=== PATIENT | female | born 1990 | race Caucasian/White ===

== ENCOUNTER 2016-12-10 18:07 | Inpatient (IN) | payer BC ==
[2016-12-10] MEDS ORDERED: ONDANSETRON HCL INJ/PF 4 MG/2 ML SDV IV ONE (18:55)
--- NOTE | 2016-12-10 19:00 | ER Document Report ---
ED Medical Screen (RME) - General Chief Complaint: Abdominal Pain Stated Complaint: VOMITING,BACK PAIN,ABDOMINAL PAIN Time Seen by Provider: 12/10/16 18:54 Mode of Arrival: Ambulatory Information source: Patient TRAVEL OUTSIDE OF THE [place] IN LAST 30 DAYS: No - HPI Patient complains to provider of: Abdominal pain with vomiting Notes: 12/10/16 18:58 Patient is a 36-year-old female who presents to the emergency room complaining of 2 day history of upper abdominal pain with nausea and vomiting which is consistent with pancreatitis that patient has had in the past, which is related to alcohol abuse - Related Data Allergies/Adverse Reactions: No Known Allergies Allergy (Verified 12/10/16 18:13) Past Medical History Renal/ Medical History: Denies: Hx Peritoneal Dialysis Physical Exam - Vital signs Vitals: Temp Pulse Resp BP Pulse Ox 98.3 F 86 18 156/102 H 98 12/10/16 18:11 12/10/16 18:11 12/10/16 18:11 12/10/16 18:11 12/10/16 18:11 Course - Vital Signs Vital signs: Temp Pulse Resp BP Pulse Ox 98.3 F 86 18 156/102 H 98 12/10/16 18:11 12/10/16 18:11 12/10/16 18:11 12/10/16 18:11 12/10/16 18:11
[2016-12-10 19:26] LABS: APPEARANCE,URINE CLOUDY; BILIRUBIN,URINE MODERATE (NEGATIVE); GLUCOSE, URINE 50 mg/dL (NEGATIVE); KETONES,URINE 80 mg/dL (NEGATIVE); LEUKOCYTE ESTERASE,URINE NEGATIVE (NEGATIVE); NITRITE,URINE NEGATIVE (NEGATIVE); PROTEIN,URINE >=500 mg/dL (NEGATIVE); URINE SPECIFIC GRAVITY 1.037; UROBILINOGEN,URINE NEGATIVE mg/dL (<2.0)
[2016-12-10] MEDS: NORMAL SALINE 1000 ML 1,000 ML IV PRN ×2 (20:05→22:12)
[2016-12-10 20:44] LABS: HEMATOCRIT 52.5 % (36.0-47.0); HEMOGLOBIN 17.4 g/dL (12.0-15.5); HGB HCT DIFFERENCE -0.3; MEAN CORPUSCULAR HEMOGLOBIN 32.1 pg (27.0-33.4); MEAN CORPUSCULAR HGB CONC 33.1 g/dL (32.0-36.0); MEAN CORPUSCULAR VOLUME 97 fl (80-97); RED BLOOD COUNT 5.41 10^6/uL (3.72-5.28); RED CELL DISTRIBUTION WIDTH 14.6 % (11.5-14.0); WHITE BLOOD COUNT 14.9 10^3/uL (4.0-10.5)
[2016-12-10 21:02] LABS: ALANINE AMINOTRANSFERASE 55 U/L (9-52); ALBUMIN 5.2 g/dL (3.5-5.0); ALKALINE PHOSPHATASE 202 U/L (38-126); ASPARTATE AMINO TRANSFERASE 86 U/L (14-36); BILIRUBIN,DIRECT 0.8 mg/dL (0.0-0.4); BILIRUBIN,TOTAL 2.4 mg/dL (0.2-1.3); BLOOD UREA NITROGEN 4 mg/dL (7-20); CALCIUM 11.1 mg/dL (8.4-10.2); CREATININE RESULT 0.67 mg/dL (0.52-1.25); GLUCOSE 105 mg/dL (75-110); TOTAL PROTEIN 8.5 g/dL (6.3-8.2)
[2016-12-10 21:10] LABS: CARBON DIOXIDE 27 mmol/L (22-30); CHLORIDE 91 mmol/L (98-107); POTASSIUM 4.3 mmol/L (3.6-5.0); SODIUM 143.4 mmol/L (137-145)
[2016-12-10 21:16] LABS: BAND NEUTROPHILS % (MANUAL) 4 % (3-5); BASOPHILS % (MANUAL) 0 % (0-2); EOSINOPHILS % (MANUAL) 0 % (0-6); LYMPHOCYTES % (MANUAL) 0 % (13-45); TOTAL CELLS COUNTED 100
[2016-12-10 21:18] LABS: ANION GAP 25 (5-19); ANISOCYTOSIS SLIGHT; PLATELET CLUMPS PRESENT; TOXIC GRANULATION 1+
[2016-12-10 21:19] LABS: LIPASE 4617.8 U/L (23-300)
--- NOTE | 2016-12-10 22:13 | ER Document Report ---
ED GI/ - General Mode of Arrival: Ambulatory Information source: Patient, Parent TRAVEL OUTSIDE OF THE [place] IN LAST 30 DAYS: No - HPI Patient complains to provider of: Abdominal pain, Vomiting Onset: Other - refer to HPI notes Context: Other - EtOH abuse Associated symptoms: Nausea, Vomiting, Other - shaking Similar symptoms previously: Yes Recently seen / treated by doctor: No <DAYANA CLARK - Last Filed: 12/11/16 01:51> <JOSEP SALCEDO - Last Filed: 12/11/16 06:10> - General Chief Complaint: Abdominal Pain Stated Complaint: VOMITING,BACK PAIN,ABDOMINAL PAIN Time Seen by Provider: 12/10/16 22:15 Notes: Patient is a 25 year old female presenting to the emergency department for upper abdominal pain, nausea, and vomiting x2 days. Patient's symptoms are consistent with pancreatitis which the patient has had in the past. Patient has a history of EtOH abuse. Patient is shaky and cannot keep any fluids down. Patient's father states the patient is vomiting every 10-15 minutes. Patient has a history of EtOH withdrawal without seizures; patient states she just gets shaky and has abdominal and back pain. Patient has quit drinking alcohol in the past for about 1-2 months but started up again when she was hanging out with a friend recently. Patient has been hospitalized x3 in the past for EtOH related pancreatitis. (DAYANA CLARK) - Related Data Allergies/Adverse Reactions: No Known Allergies Allergy (Verified 12/10/16 18:13) Past Medical History - General Information source: Patient - Social History Smoking Status: Former Smoker Chew tobacco use (# tins/day): No Frequency of alcohol use: Heavy Family History: None Patient has suicidal ideation: No Patient has homicidal ideation: No - Medical History Medical History: Other - EtOH related pancreatitis Past Surgical History: Reports: Hx Tonsillectomy <DAYANA CLARK - Last Filed: 12/11/16 01:51> Review of Systems - Review of Systems Constitutional: No symptoms reported EENT: No symptoms reported Cardiovascular: No symptoms reported Respiratory: No symptoms reported Gastrointestinal: See HPI, Abdominal pain, Nausea, Vomiting Genitourinary: No symptoms reported Female Genitourinary: No symptoms reported Musculoskeletal: See HPI, Back pain Skin: No symptoms reported Hematologic/Lymphatic: No symptoms reported Neurological/Psychological: No symptoms reported -: Yes All other systems reviewed and negative <CASEYDAYANA BRYANT - Last Filed: 12/11/16 01:51> Physical Exam - Vital signs Interpretation: Hypertensive <AMBERKASEYDAYANA - Last Filed: 12/11/16 01:51> <JOSEP SALCEDO - Last Filed: 12/11/16 06:10> - Vital signs Vitals: Temp Pulse Resp BP Pulse Ox 98.3 F 86 18 156/102 H 98 12/10/16 18:11 12/10/16 18:11 12/10/16 18:11 12/10/16 18:11 12/10/16 18:11 - Notes Notes: GENERAL: Alert, interacts well, patient is tremulous and appears uncomfortable. Mild distress. HEAD: Normocephalic, atraumatic. EYES: Appear normal. Pupils equal, round, and reactive to light. ENT: Dry mucus membranes, tongue midline. NECK: Full range of motion. Supple. Trachea midline. LUNGS: Clear to auscultation bilaterally, no wheezes, rales, or rhonchi. No respiratory distress. HEART: Tachycardia. Regular rhythm. No murmurs, gallops, or rubs. ABDOMEN: Soft, tenderness to palpation over the maria-umbilical region. Non- distended. Normal bowel sounds. EXTREMITIES: Moves all 4 extremities spontaneously. Normal strength. No edema. NEUROLOGICAL: Alert and oriented x3. Normal speech. No focal neurological deficits. GSC 15. PSYCH: Normal affect, normal mood. SKIN: Warm, dry, normal turgor. No rashes or lesions noted. (DAYANA CLARK) Course - Laboratory Result Diagrams: 12/10/16 20:11 12/10/16 20:11 <AMBERDAYANA - Last Filed: 12/11/16 01:51> - Laboratory Result Diagrams: 12/10/16 20:11 12/10/16 20:11 <JOSEP SALCEDO - Last Filed: 12/11/16 06:10> - Re-evaluation Re-evalutation: 12/10 Patient is a 25-year-old female who presents with abdominal pain and vomiting. Patient has a history of alcohol abuse. Patient is also tachycardic, hypertensive, tremulous. Patient has been given fluids, nausea, pain medication , and Valium for alcohol withdrawal. Patient is feeling better but when she tries to take p.o. so becomes nauseated. Patient denies any seizure history from alcohol withdrawal. However, due to her continued nausea, diagnosis of pancreatitis and history of alcohol abuse with current withdrawal symptoms, it is probably best that she be admitted to the hospital to control her symptoms of pancreatitis and withdrawal. Patient agrees with this plan. Stable at time of admission to the hospitalist service. (JOSEP SALCEDO) - Vital Signs Vital signs: Temp Pulse Resp BP Pulse Ox 98.6 F 75 18 152/110 H 97 12/11/16 02:34 12/11/16 02:34 12/11/16 02:34 12/11/16 02:34 12/11/16 02:34 - Laboratory Laboratory results interpreted by me: 12/10/16 12/10/16 12/10/16 18:57 20:11 20:11 WBC 14.9 H RBC 5.41 H Hgb 17.4 H Hct 52.5 H RDW 14.6 H Seg Neuts % (Manual) 94 H Lymphocytes % (Manual) 0 L Monocytes % (Manual) 2 L Abs Neuts (Manual) 14.6 H Abs Lymphs (Manual) 0.0 L Chloride 91 L Anion Gap 25 H BUN 4 L Calcium 11.1 H Magnesium Total Bilirubin 2.4 H Direct Bilirubin 0.8 H AST 86 H ALT 55 H Alkaline Phosphatase 202 H Total Protein 8.5 H Albumin 5.2 H Lipase 4617.8 H Urine Protein >=500 H Urine Glucose (UA) 50 H Urine Ketones 80 H Urine Bilirubin MODERATE H Urine Ascorbic Acid 40 H Salicylates Acetaminophen 12/10/16 20:11 WBC RBC Hgb Hct RDW Seg Neuts % (Manual) Lymphocytes % (Manual) Monocytes % (Manual) Abs Neuts (Manual) Abs Lymphs (Manual) Chloride Anion Gap BUN Calcium Magnesium 1.4 L Total Bilirubin Direct Bilirubin AST ALT Alkaline Phosphatase Total Protein Albumin Lipase Urine Protein Urine Glucose (UA) Urine Ketones Urine Bilirubin Urine Ascorbic Acid Salicylates < 1.0 L Acetaminophen < 10 L - Consults Dr. Wood Reason for consultation: 12/11/16 00:[address] Wood in the ED, he will admit the patient. (DAYANA CLARK) Discharge <DAYANA CLARK - Last Filed: 12/11/16 01:51> - Discharge Admitting Provider: [facility] Admitted: Telemetry <JOSEP SALCEDO - Last Filed: 12/11/16 06:10> - Discharge Clinical Impression: Pancreatitis Qualifiers: Chronicity: acute Pancreatitis type: alcohol induced Acute pancreatitis complication: unspecified Qualified Code(s): K85.20 - Alcohol induced acute pancreatitis without necrosis or infection Alcohol withdrawal Qualifiers: Complication of substance-induced condition: uncomplicated Qualified Code(s): F10.230 - Alcohol dependence with withdrawal, uncomplicated Condition: Stable Disposition: ADMITTED OBSERVATION Scribe Attestation: 12/11/16 06:10 I personally performed the services described in the documentation, reviewed and edited the documentation which was dictated to the scribe in my presence, and it accurately records my words and actions. (JOSEP SALCEDO) Scribe Documentation - Scribe Written by Scribe:: Kaylee Barone 12/10/16 23:33 acting as scribe for :: Karan <DAYANA CLARK - Last Filed: 12/11/16 01:51>
[2016-12-10] MEDS ORDERED: MORPHINE SULFATE 10 MG/ML INJ IV ONE (22:24)
[2016-12-10] MEDS ORDERED: METOCLOPRAMIDE HCL INJ/PF 10 MG/2 ML SDV IV ONE (22:24)
[2016-12-10] MEDS ORDERED: DIAZEPAM INJ 10 MG/2 ML DISP.SYRIN IV ONE (22:27)
[2016-12-10] MEDS ORDERED: RINGERS SOLUTION,LACTATED 1,000 ML IV ONE (23:07)
[2016-12-11] MEDS ORDERED: MORPHINE SULFATE 10 MG/ML INJ IV ONE (00:10)
[2016-12-11] MEDS ORDERED: DEXTROSE 40% GEL 15 GM TUBE PO PRN ×2 (00:35)
[2016-12-11] MEDS ORDERED: DEXTROSE 50%-WATER 25 GM/50 ML DISP.SYRIN IV PRN ×2 (00:35)
[2016-12-11] MEDS ORDERED: GLUCAGON,HUMAN RECOMB 1 MG INJ SUBCUT PRN (00:35)
[2016-12-11] MEDS ORDERED: ONDANSETRON HCL INJ/PF 4 MG/2 ML SDV IV PRN ×3 (00:35→11:32)
[2016-12-11] MEDS ORDERED: MAGNESIUM HYDROXIDE SUSP 30 ML UDCUP PO PRN ×2 (00:35→08:00)
[2016-12-11] MEDS ORDERED: ACETAMINOPHEN 325 MG TABLET PO PRN ×2 (00:35→08:00)
[2016-12-11] MEDS ORDERED: IPRATROPIUM/ALBUTEROL 0.5-2.5 MG/3 ML AMPUL NEB PRN (00:35)
[2016-12-11] MEDS ORDERED: ASCORBIC ACID 500 MG TABLET PO SCH (00:45)
[2016-12-11 02:28] LABS: MAGNESIUM 1.4 mg/dL (1.6-2.3); PHOSPHORUS 3.9 mg/dL (2.5-4.5)
[2016-12-11] MEDS: KETOROLAC TROMETHAMINE INJ/PF 30 MG/1 ML SDV IV PRN ×2 (03:02→08:24)
[2016-12-11] MEDS: NORMAL SALINE 1000 ML 1,000 ML IV SCH ×2 (03:14→08:30)
[2016-12-11 04:48] LABS: APPEARANCE,URINE SLIGHTLY-CLOUDY; BILIRUBIN,URINE NEGATIVE (NEGATIVE); GLUCOSE, URINE NEGATIVE (NEGATIVE); KETONES,URINE 80 mg/dL (NEGATIVE); LEUKOCYTE ESTERASE,URINE TRACE (NEGATIVE); NITRITE,URINE NEGATIVE (NEGATIVE); PROTEIN,URINE 100 mg/dL (NEGATIVE); URINE SPECIFIC GRAVITY 1.026; UROBILINOGEN,URINE NEGATIVE mg/dL (<2.0)
--- NOTE | 2016-12-11 04:49 | PDOC H&P ---
History of Present Illness Admission Date/PCP: 12/11/16 00:35 Patient complains of: Abdominal pain and nausea History of Present Illness: DAVONTE ANTONY is a 25 year old female with a past medical history of obesity , depression, self injury with cutting, alcohol dependence, alcoholic pancreatitis and tobacco dependence. Patient been her usual state of health until binging on vodka approximately 72 hours ago resulting in intolerance of p.o. and recurrent vomiting on attempts with epigastric mid abdominal pain radiating to the back. She recognizes the symptoms from several previous episodes. In the emergency room she is found to have markedly abnormal chemical derangement with metabolic acidosis, abnormal LFTs and acute pancreatitis. She is tremulous and tachycardic referred to the hospitalist for admission, for the above. Patient is noted to have several dozen recent appearing lacerations to the left wrist, patient denies these are recent. Past Medical History Cardiac Medical History: Reports: None Pulmonary Medical History: Reports: None EENT Medical History: Reports: None Neurological Medical History: Reports: Migraine Endocrine Medical History: Reports: Obesity Renal/ Medical History: Reports: None Malignancy Medical History: Reports: None GI Medical History: Reports: Hepatitis - Alcoholic pancreatitis, Other Psychiatric Medical History: Reports: Alcohol Dependency, Attention Deficit Hyperactivity Disorder, Depression, General Anxiety Disorder, Tobacco Dependency Hematology: Reports: None Infectious Medical History: Reports: None Past Surgical History Past Surgical History: Reports: Tonsillectomy Social History Information Source: Patient Lives with: Family Smoking Status: Current Some Day Smoker Frequency of Alcohol Use: Heavy - 750 mL vodka every 48 hours Hx Recreational Drug Use: No Hx Prescription Drug Abuse: No - Advance Directive Resuscitation Status: Full Code Family History Family History: Hypertension, Other - Alcohol dependence, depression Parental Family History Reviewed: Yes Children Family History Reviewed: Yes Sibling(s) Family History Reviewed.: Yes Medication/Allergy Allergies/Adverse Reactions: No Known Allergies Allergy (Verified 12/10/16 18:13) Review of Systems Constitutional: PRESENT: anorexia, fatigue, weakness, weight gain Eyes: ABSENT: visual disturbances Ears: ABSENT: hearing changes Cardiovascular: ABSENT: chest pain, dyspnea on exertion, edema, orthropnea, palpitations Respiratory: ABSENT: cough, hemoptysis Gastrointestinal: PRESENT: abdominal pain, bloating, nausea, vomiting, other Genitourinary: ABSENT: dysuria, hematuria Musculoskeletal: PRESENT: back pain. ABSENT: joint swelling Integumentary: PRESENT: rash - Facial rash, wounds - Left wrist lacerations Neurological: ABSENT: abnormal gait, abnormal speech, confusion, dizziness, focal weakness, syncope Psychiatric: PRESENT: anxiety, depression, suicidal ideation Endocrine: ABSENT: cold intolerance, heat intolerance, polydipsia, polyuria Hematologic/Lymphatic: ABSENT: easy bleeding, easy bruising Physical Exam Vital Signs: Temp Pulse Resp BP Pulse Ox 98.6 F 75 18 152/110 H 97 12/11/16 02:34 12/11/16 02:34 12/11/16 02:34 12/11/16 02:34 12/11/16 02:34 Intake & Output 12/09/16 12/10/16 12/11/16 11:59 11:59 11:59 Weight 74.4 kg General appearance: PRESENT: cooperative, disheveled, obese, well-developed. ABSENT: well-nourished Head exam: PRESENT: atraumatic, normocephalic Eye exam: PRESENT: conjunctiva pink, EOMI, PERRLA. ABSENT: scleral icterus Ear exam: PRESENT: normal external ear exam Mouth exam: PRESENT: moist, tongue midline Neck exam: ABSENT: carotid bruit, JVD, lymphadenopathy, thyromegaly Respiratory exam: PRESENT: clear to auscultation vane. ABSENT: rales, rhonchi, wheezes Cardiovascular exam: PRESENT: RRR. ABSENT: diastolic murmur, rubs, systolic murmur Pulses: PRESENT: normal dorsalis pedis pul Vascular exam: PRESENT: normal capillary refill GI/Abdominal exam: PRESENT: distended, hyperactive bowel sounds, soft, tenderness - Epigastric tenderness. ABSENT: firm, guarding, hernia Rectal exam: PRESENT: deferred Extremities exam: PRESENT: full ROM. ABSENT: calf tenderness, clubbing, pedal edema Neurological exam: PRESENT: alert, awake, oriented to person, oriented to place , oriented to time, oriented to situation, CN II-XII grossly intact. ABSENT: motor sensory deficit Psychiatric exam: PRESENT: anxious, depressed, flat affect, suicidal ideation Skin exam: PRESENT: erythema, intact, rash, other - Left wrist several dozen recent lacerations without exudate or extensive erythema Facial, scalp, neck and shoulder erythemic scaling rash. Assessment & Plan - Diagnosis (1) Suicide ideation Is this a current diagnosis for this admission?: Yes Plan: One-to-one sitter, as needed Ativan, mental health consultation. (2) Pancreatitis Qualifiers: Chronicity: acute Is this a current diagnosis for this admission?: Yes Plan: Acute on chronic pancreatitis secondary to alcohol, will obtain CT imaging given markedly abnormal LFTs and unclear history. Initiated IV fluid challenge , thiamine and folate, symptomatic management and bowel rest. (3) Alcohol withdrawal Is this a current diagnosis for this admission?: Yes Plan: Thiamine folate initiated, scheduled and as needed benzodiazepine, mental health consult (4) Abdominal pain Is this a current diagnosis for this admission?: Yes Plan: Nonnarcotic symptomatic management. (5) Dermatitis Is this a current diagnosis for this admission?: Yes Plan: Diffuse scaling rash concerning for thiamine deficiency versus seborrheic dermatitis. Thiamine initiated, topical ketoconazole trial. - Time Time Spent: 50 to 70 Minutes - Inpatient Certification Medical Necessity: Need Close Monitoring Due to Risk of Patient Decompensation
[2016-12-11 05:17] LABS: URINE BARBITURATES SCREEN NEGATIVE; URINE METHADONE SCREEN NEGATIVE; URINE PHENCYCLIDINE SCREEN NEGATIVE
[2016-12-11] MEDS: HEPARIN SOD (PORCINE) 5,000 UNIT/ML 1 ML SYRINGE SUBCUT SCH ×3 (05:18→22:41)
[2016-12-11 05:53] LABS: URINE OPIATES LOW UNCONFIRMED POSITIVE
[2016-12-11] MEDS ORDERED: DIAZEPAM 5 MG TABLET PO SCH (06:00)
[2016-12-11 06:19] LABS: ABSOLUTE LYMPHOCYTES (AUTO) 0.6 10^3/uL (0.5-4.7); ABSOLUTE NEUT (AUTO) 7.7 10^3/uL (1.7-8.2); BASOPHILS % (AUTO) 0.3 % (0-2); EOSINOPHILS % (AUTO) 0.1 % (0-6); HEMATOCRIT 40.3 % (36.0-47.0); HGB HCT DIFFERENCE 0.2; LYMPHOCYTES % (AUTO) 6.1 % (13-45); MEAN CORPUSCULAR HEMOGLOBIN 32.5 pg (27.0-33.4); MEAN CORPUSCULAR HGB CONC 33.4 g/dL (32.0-36.0); MEAN CORPUSCULAR VOLUME 97 fl (80-97); MONOCYTES % (AUTO) 10.4 % (3-13); RED BLOOD COUNT 4.15 10^6/uL (3.72-5.28); RED CELL DISTRIBUTION WIDTH 14.6 % (11.5-14.0); SEGMENTED NEUTROPHILS % (AUTO) 83.1 % (42-78); WHITE BLOOD COUNT 9.3 10^3/uL (4.0-10.5)
[2016-12-11 06:29] LABS: HEMOGLOBIN 13.5 g/dL (12.0-15.5)
[2016-12-11 06:40] LABS: ALANINE AMINOTRANSFERASE 39 U/L (9-52); ALBUMIN 3.6 g/dL (3.5-5.0); ALKALINE PHOSPHATASE 120 U/L (38-126); ANION GAP 16 (5-19); ASPARTATE AMINO TRANSFERASE 52 U/L (14-36); BILIRUBIN,DIRECT 0.6 mg/dL (0.0-0.4); BILIRUBIN,TOTAL 1.5 mg/dL (0.2-1.3); BLOOD UREA NITROGEN 5 mg/dL (7-20); CALCIUM 8.8 mg/dL (8.4-10.2); CARBON DIOXIDE 26 mmol/L (22-30); CHLORIDE 99 mmol/L (98-107); CREATININE RESULT 0.53 mg/dL (0.52-1.25); GLUCOSE 97 mg/dL (75-110); POTASSIUM 3.8 mmol/L (3.6-5.0); SODIUM 140.6 mmol/L (137-145); TOTAL PROTEIN 6.1 g/dL (6.3-8.2)
[2016-12-11] MEDS ORDERED: DOCUSATE SODIUM 100 MG CAPSULE PO SCH (10:00)
[2016-12-11] MEDS ORDERED: KETOCONAZOLE 2% SHAMPOO 120 ML BOTTLE TP SCH (10:00)
[2016-12-11] MEDS ORDERED: DOCUSATE SODIUM 100 MG/10 ML UDC PO SCH (10:00)
[2016-12-11] MEDS: THIAMINE HCL 100 MG, FOLIC ACID 1 MG in NORMAL SALINE 50 ML IV SCH (12:14)
[2016-12-11] MEDS: MORPHINE SULFATE 10 MG/ML INJ IV PRN ×3 (12:24→20:39)
[2016-12-11] MEDS: DIAZEPAM 5 MG TABLET PO SCH ×3 (12:25→23:22)
[2016-12-11] MEDS: MAGNESIUM SULFATE/D5W 1 GM/100 ML RTUPB IV SCH ×2 (13:21→14:32)
--- NOTE | 2016-12-11 15:50 | PDOC PROGRESS REPORT ---
Subjective Progress Note for:: 12/11/16 Subjective:: Patient reports ongoing abdominal pain Reports she drinks about 1/2 of 1/5 of vodka when she does drink States she has backslid and started cutting again. Denies SI and HI Reports having been on Adderall in the past Physical Exam Vital Signs: Temp Pulse Resp BP Pulse Ox 98.5 F 58 L 18 154/94 H 98 12/11/16 12:14 12/11/16 12:14 12/11/16 12:14 12/11/16 12:14 12/11/16 12:14 Intake & Output 12/10/16 12/11/16 12/12/16 06:59 06:59 06:59 Intake Total 1000 Balance 1000 Weight 74.4 kg Exam: General: Awake alert and oriented x3, no acute respiratory distress HEENT: AT/NC, PERRL, EOMI, oropharynx is moist, pink, no scleral icterus, no conjunctival injection Neck: No JVD, trachea midline Chest: Clear to auscultation bilaterally, no wheezes rhonchi or rales CV: Regular rate and rhythm, normal S1 and S2, no murmur, rub, or gallop Abdomen: Soft, tender to palpation rigo, nondistended, hypoactive bowel sounds; no rebound, rigidity, or guarding Extremities: No cyanosis, clubbing or edema Neuro: Cranial nerves II through XII are grossly intact without focal deficits; awake alert and oriented x3 Psych: Normal mood and affect Results Laboratory Results: 12/11/16 05:56 12/11/16 05:56 12/11/16 12/11/16 12/11/16 03:50 05:56 05:56 WBC 9.3 RBC 4.15 Hgb 13.5 D Hct 40.3 MCV 97 MCH 32.5 MCHC 33.4 RDW 14.6 H Plt Count 176 Seg Neutrophils % 83.1 H Lymphocytes % 6.1 L Monocytes % 10.4 Eosinophils % 0.1 Basophils % 0.3 Absolute Neutrophils 7.7 Absolute Lymphocytes 0.6 Absolute Monocytes 1.0 Absolute Eosinophils 0.0 Absolute Basophils 0.0 Sodium 140.6 Potassium 3.8 Chloride 99 Carbon Dioxide 26 Anion Gap 16 BUN 5 L Creatinine 0.53 Est GFR ( Amer) > 60 Est GFR (Non-Af Amer) > 60 Glucose 97 Calcium 8.8 Total Bilirubin 1.5 H AST 52 H ALT 39 Alkaline Phosphatase 120 Total Protein 6.1 L Albumin 3.6 Urine Color DOMINGA Urine Appearance SLIGHTLY-CLOUDY Urine pH 7.0 Ur Specific [place] 1.026 Urine Protein 100 H Urine Glucose (UA) NEGATIVE Urine Ketones 80 H Urine Blood NEGATIVE Urine Nitrite NEGATIVE Ur Leukocyte Esterase TRACE H Urine WBC (Auto) 26 Urine RBC (Auto) 11 Assessment & Plan - Diagnosis (1) Pancreatitis Qualifiers: Chronicity: acute Pancreatitis type: alcohol induced Acute pancreatitis complication: unspecified Qualified Code(s): K85.20 - Alcohol induced acute pancreatitis without necrosis or infection Is this a current diagnosis for this admission?: Yes Plan: Check US of gallbladder Check FLP NPO Morphine for pain IVF pepcid IV bid (2) UTI (urinary tract infection) Qualifiers: Urinary tract infection type: acute cystitis Hematuria presence: without hematuria Qualified Code(s): N30.00 - Acute cystitis without hematuria Is this a current diagnosis for this admission?: Yes Plan: Place on Rocephin until culture results (3) Alcohol withdrawal Qualifiers: Complication of substance-induced condition: uncomplicated Qualified Code(s ): F10.230 - Alcohol dependence with withdrawal, uncomplicated Is this a current diagnosis for this admission?: Yes Plan: scheduled valium ' (4) Deliberate self-cutting Is this a current diagnosis for this admission?: Yes Plan: IVC in place Pending psych eval (5) Obesity (BMI 30.0-34.9) Is this a current diagnosis for this admission?: Yes (6) Hypomagnesemia Is this a current diagnosis for this admission?: Yes Plan: replete and recheck - Time Time Spent with patient: 25-34 minutes Medications reviewed and adjusted accordingly: Yes - Inpatient Certification Based on my medical assessment, after consideration of the patient's comorbidities, presenting symptoms, or acuity I expect that the services needed warrant INPATIENT care.: Yes I certify that my determination is in accordance with my understanding of Medicare's requirements for reasonable and necessary INPATIENT services [42 CFR 412.3e].: Yes Medical Necessity: Need For IV Fluids Post Hospital Care: D/C Control Clerk [employer] Bever[employer] Documentation
[2016-12-11] MEDS ORDERED: MAGNESIUM SULFATE/D5W 1 GM/100 ML RTUPB IV ONE (16:15)
[2016-12-11] MEDS ORDERED: AMITRIPTYLINE HCL 50 MG TABLET PO ONE (16:30)
[2016-12-11] MEDS: FAMOTIDINE INJ/PF 20 MG/2 ML SDV IV SCH (22:41)
[2016-12-12] MEDS: LORAZEPAM INJ 2 MG/1 ML VIAL IV PRN (04:58)
[2016-12-12] MEDS: HEPARIN SOD (PORCINE) 5,000 UNIT/ML 1 ML SYRINGE SUBCUT SCH ×3 (05:00→22:32)
[2016-12-12] MEDS: DIAZEPAM 5 MG TABLET PO SCH ×3 (05:00→17:40)
--- NOTE | 2016-12-12 05:55 | RADIOLOGY REPORT (SQ) ---
EXAM DESCRIPTION: U/S ABDOMEN LIMITED W/O DOP COMPLETED DATE/TIME: 12/11/2016 11:01 pm REASON FOR STUDY: eval stones, pancreatitis COMPARISON: None. TECHNIQUE: Dynamic and static grayscale images acquired of the abdomen and recorded on PACS. Additio nal selected color Doppler and spectral images recorded. LIMITATIONS: As below. FINDINGS: PANCREAS: Obscured due to body habitus and overlying bowel gas. LIVER: No masses. Echotexture normal. LIVER VASCULATURE: Normal directional flow of the main portal vein and hepatic veins. GALLBLADDER: No stones. Normal wall thickness. No pericholecystic fluid. ULTRASOUND-DETECTED CUMMINGS'S SIGN: Negative. INTRAHEPATIC DUCTS AND COMMON DUCT: CBD and intrahepatic ducts normal caliber. No filling defects. INFERIOR VENA CAVA: Normal flow. AORTA: No aneurysm. RIGHT KIDNEY: Normal size. Normal echogenicity. No solid or suspicious masses. No hydronephrosis. No calcifications. PERITONEAL AND RIGHT PLEURAL SPACE: No ascites or effusions. OTHER: No other significant findings. IMPRESSION: No acute findings. Obscured pancreas. TECHNICAL DOCUMENTATION: JOB ID: [id number] [employer]- All Rights Reserved
[2016-12-12] MEDS: MORPHINE SULFATE 10 MG/ML INJ IV PRN ×3 (07:31→20:31)
[2016-12-12] MEDS ORDERED: NORMAL SALINE 1000 ML 1,000 ML IV PRN (07:33)
[2016-12-12 07:39] LABS: ABSOLUTE EOSINOPHILS # (AUTO) 0.3 10^3/uL (0.0-0.6); ABSOLUTE LYMPHOCYTES (AUTO) 0.9 10^3/uL (0.5-4.7); ABSOLUTE MONOCYTES (AUTO) 0.8 10^3/uL (0.1-1.4); ABSOLUTE NEUT (AUTO) 7.1 10^3/uL (1.7-8.2); BASOPHILS % (AUTO) 0.5 % (0-2); EOSINOPHILS % (AUTO) 2.9 % (0-6); HEMATOCRIT 46.7 % (36.0-47.0); HEMOGLOBIN 15.5 g/dL (12.0-15.5); HGB HCT DIFFERENCE -0.2; LYMPHOCYTES % (AUTO) 10.4 % (13-45); MEAN CORPUSCULAR HEMOGLOBIN 32.5 pg (27.0-33.4); MEAN CORPUSCULAR HGB CONC 33.3 g/dL (32.0-36.0); MEAN CORPUSCULAR VOLUME 98 fl (80-97); MONOCYTES % (AUTO) 8.5 % (3-13); RED BLOOD COUNT 4.79 10^6/uL (3.72-5.28); RED CELL DISTRIBUTION WIDTH 14.6 % (11.5-14.0); SEGMENTED NEUTROPHILS % (AUTO) 77.7 % (42-78); WHITE BLOOD COUNT 9.1 10^3/uL (4.0-10.5)
[2016-12-12 07:52] LABS: ALANINE AMINOTRANSFERASE 36 U/L (9-52); ALBUMIN 4.1 g/dL (3.5-5.0); ALKALINE PHOSPHATASE 137 U/L (38-126); ANION GAP 19 (5-19); ASPARTATE AMINO TRANSFERASE 48 U/L (14-36); BILIRUBIN,DIRECT 0.7 mg/dL (0.0-0.4); BILIRUBIN,TOTAL 1.6 mg/dL (0.2-1.3); BLOOD UREA NITROGEN 2 mg/dL (7-20); CALCIUM 9.5 mg/dL (8.4-10.2); CARBON DIOXIDE 25 mmol/L (22-30); CHLORIDE 91 mmol/L (98-107); Direct HDL 67 mg/dL (>40); GLUCOSE 72 mg/dL (75-110); POTASSIUM 3.4 mmol/L (3.6-5.0); SODIUM 134.8 mmol/L (137-145); TOTAL PROTEIN 6.9 g/dL (6.3-8.2); TRIGLYCERIDES 112 mg/dL (<150)
[2016-12-12] MEDS ORDERED: ENALAPRILAT DIHYDRATE INJ/PF 1.25 MG/1 ML SDV IV ONE (08:00)
[2016-12-12 08:02] LABS: DIRECT LDL 113 mg/dL (<100)
[2016-12-12] MEDS: THIAMINE HCL 100 MG, FOLIC ACID 1 MG in NORMAL SALINE 50 ML IV SCH (10:37)
[2016-12-12] MEDS: FAMOTIDINE INJ/PF 20 MG/2 ML SDV IV SCH ×2 (10:37→22:32)
[2016-12-12] MEDS ORDERED: MORPHINE SULFATE 10 MG/ML INJ IV ONE (12:00)
[2016-12-12] MEDS: ENALAPRILAT DIHYDRATE INJ/PF 1.25 MG/1 ML SDV IV SCH ×2 (12:01→17:40)
[2016-12-12] MEDS: POTASSI CL 20 MEQ/50 ML RIDER 20 MEQ/50 ML RTUPB IV SCH ×3 (13:14→17:43)
--- NOTE | 2016-12-12 15:41 | PDOC PROGRESS REPORT ---
Subjective Progress Note for:: 12/12/16 Subjective:: Patient reports ongoing abdominal pain, but that morphine helped States she has backslid and started cutting again. Denies SI and HI Physical Exam Vital Signs: Temp Pulse Resp BP Pulse Ox 97.5 F 102 H 16 140/92 H 98 12/12/16 14:00 12/12/16 14:00 12/12/16 14:00 12/12/16 14:00 12/12/16 14:00 Intake & Output 12/11/16 12/12/16 12/13/16 06:59 06:59 06:59 Intake Total 1000 2197 Output Total 900 Balance 1000 2197 -900 Weight 74.4 kg 76.3 kg Exam: General: Awake alert and oriented x3, no acute respiratory distress HEENT: AT/NC, PERRL, EOMI, oropharynx is moist, pink, no scleral icterus, no conjunctival injection Neck: No JVD, trachea midline Chest: Clear to auscultation bilaterally, no wheezes rhonchi or rales CV: Regular rate and rhythm, normal S1 and S2, no murmur, rub, or gallop Abdomen: Soft, mild tender to palpation rigo, nondistended, hypoactive bowel sounds; no rebound, rigidity, or guarding Extremities: No cyanosis, clubbing or edema Neuro: Cranial nerves II through XII are grossly intact without focal deficits; awake alert and oriented x3 Psych: Normal mood and affect Results Laboratory Results: 12/12/16 07:07 12/12/16 07:07 12/12/16 12/12/16 12/12/16 07:07 07:07 07:07 WBC 9.1 RBC 4.79 Hgb 15.5 Hct 46.7 MCV 98 H MCH 32.5 MCHC 33.3 RDW 14.6 H Plt Count 181 Seg Neutrophils % 77.7 Lymphocytes % 10.4 L Monocytes % 8.5 Eosinophils % 2.9 Basophils % 0.5 Absolute Neutrophils 7.1 Absolute Lymphocytes 0.9 Absolute Monocytes 0.8 Absolute Eosinophils 0.3 Absolute Basophils 0.0 Sodium 134.8 L Potassium 3.4 L Chloride 91 L Carbon Dioxide 25 Anion Gap 19 BUN 2 L Creatinine 0.50 L Est GFR ( Amer) > 60 Est GFR (Non-Af Amer) > 60 Glucose 72 L Calcium 9.5 Magnesium 2.0 Total Bilirubin 1.6 H AST 48 H ALT 36 Alkaline Phosphatase 137 H Total Protein 6.9 Albumin 4.1 Triglycerides 112 Cholesterol 190.60 LDL Cholesterol Direct 113 H VLDL Cholesterol 22.0 HDL Cholesterol 67 12/11/16 03:50 Clean Catch Midstream Urine Culture - Final Mixed Urogenital Jacquelin Impressions: Abdomen Ultrasound 12/11/16 00:00 IMPRESSION: No acute findings. Obscured pancreas. Assessment & Plan - Diagnosis (1) Pancreatitis Qualifiers: Chronicity: acute Pancreatitis type: alcohol induced Acute pancreatitis complication: unspecified Qualified Code(s): K85.20 - Alcohol induced acute pancreatitis without necrosis or infection Is this a current diagnosis for this admission?: Yes Plan: US of gallbladder negative for stones FLP reveals normal triglycerides NPO Morphine for pain IVF pepcid IV bid (2) UTI (urinary tract infection) Qualifiers: Urinary tract infection type: acute cystitis Hematuria presence: without hematuria Qualified Code(s): N30.00 - Acute cystitis without hematuria Is this a current diagnosis for this admission?: Yes Plan: On Rocephin for one additional day mixed urogenital jacquelin (3) Alcohol withdrawal Qualifiers: Complication of substance-induced condition: uncomplicated Qualified Code(s ): F10.230 - Alcohol dependence with withdrawal, uncomplicated Is this a current diagnosis for this admission?: Yes Plan: scheduled valium ' (4) Deliberate self-cutting Is this a current diagnosis for this admission?: Yes Plan: sitter in place Pending psych eval (5) Obesity (BMI 30.0-34.9) Is this a current diagnosis for this admission?: Yes (6) Hypomagnesemia Is this a current diagnosis for this admission?: Yes Plan: repleted and continue to monitor on telemetry - Time Time Spent with patient: 25-34 minutes Medications reviewed and adjusted accordingly: Yes Anticipated discharge: Home
[2016-12-12] MEDS ORDERED: AMITRIPTYLINE HCL 50 MG TABLET PO SCH (22:00)
[2016-12-12] MEDS ORDERED: TRAZODONE HCL 50 MG TABLET PO SCH (22:00)
[2016-12-13] MEDS: MORPHINE SULFATE 10 MG/ML INJ IV PRN ×5 (00:53→19:06)
[2016-12-13] MEDS: DIAZEPAM 5 MG TABLET PO SCH ×4 (00:53→22:07)
[2016-12-13] MEDS: ENALAPRILAT DIHYDRATE INJ/PF 1.25 MG/1 ML SDV IV SCH ×4 (00:53→18:42)
[2016-12-13] MEDS: DEXTROSE 5%-NORMAL SALINE 1,000 ML IV PRN ×4 (01:28→19:47)
[2016-12-13 05:12] LABS: ABSOLUTE EOSINOPHILS # (AUTO) 0.3 10^3/uL (0.0-0.6); ABSOLUTE MONOCYTES (AUTO) 0.6 10^3/uL (0.1-1.4); ABSOLUTE NEUT (AUTO) 4.9 10^3/uL (1.7-8.2); BASOPHILS % (AUTO) 0.6 % (0-2); EOSINOPHILS % (AUTO) 3.7 % (0-6); HEMATOCRIT 43.2 % (36.0-47.0); HEMOGLOBIN 14.6 g/dL (12.0-15.5); HGB HCT DIFFERENCE 0.6; LYMPHOCYTES % (AUTO) 14.8 % (13-45); MEAN CORPUSCULAR HEMOGLOBIN 32.8 pg (27.0-33.4); MEAN CORPUSCULAR HGB CONC 33.8 g/dL (32.0-36.0); MEAN CORPUSCULAR VOLUME 97 fl (80-97); MONOCYTES % (AUTO) 9.5 % (3-13); RED BLOOD COUNT 4.45 10^6/uL (3.72-5.28); RED CELL DISTRIBUTION WIDTH 14.3 % (11.5-14.0); SEGMENTED NEUTROPHILS % (AUTO) 71.4 % (42-78); WHITE BLOOD COUNT 6.8 10^3/uL (4.0-10.5)
[2016-12-13] MEDS: HEPARIN SOD (PORCINE) 5,000 UNIT/ML 1 ML SYRINGE SUBCUT SCH ×3 (06:07→22:08)
[2016-12-13 07:01] LABS: ALANINE AMINOTRANSFERASE 30 U/L (9-52); ALBUMIN 3.6 g/dL (3.5-5.0); ALKALINE PHOSPHATASE 134 U/L (38-126); ANION GAP 12 (5-19); ASPARTATE AMINO TRANSFERASE 40 U/L (14-36); BILIRUBIN,DIRECT 0.6 mg/dL (0.0-0.4); BILIRUBIN,TOTAL 1.2 mg/dL (0.2-1.3); CALCIUM 9.2 mg/dL (8.4-10.2); CARBON DIOXIDE 24 mmol/L (22-30); CHLORIDE 98 mmol/L (98-107); CREATININE RESULT 0.51 mg/dL (0.52-1.25); GLUCOSE 139 mg/dL (75-110); LIPASE 894.2 U/L (23-300); MAGNESIUM 1.8 mg/dL (1.6-2.3); PHOSPHORUS 2.8 mg/dL (2.5-4.5); POTASSIUM 3.3 mmol/L (3.6-5.0); SODIUM 133.6 mmol/L (137-145); TOTAL PROTEIN 6.3 g/dL (6.3-8.2)
[2016-12-13 07:02] LABS: BLOOD UREA NITROGEN < 2 mg/dL (7-20)
[2016-12-13] MEDS: LORAZEPAM INJ 2 MG/1 ML VIAL IV PRN ×2 (07:48→19:01)
[2016-12-13] MEDS: FAMOTIDINE INJ/PF 20 MG/2 ML SDV IV SCH ×2 (10:00→22:08)
[2016-12-13] MEDS: MAGNESIUM SULFATE/D5W 1 GM/100 ML RTUPB IV SCH ×2 (10:00→11:08)
[2016-12-13] MEDS: POTASSI CL 20 MEQ/50 ML RIDER 20 MEQ/50 ML RTUPB IV SCH ×3 (10:23→16:27)
[2016-12-13] MEDS: THIAMINE HCL 100 MG, FOLIC ACID 1 MG in NORMAL SALINE 50 ML IV SCH (12:08)
--- NOTE | 2016-12-13 12:28 | PDOC PROGRESS REPORT ---
Subjective Progress Note for:: 12/13/16 Subjective:: Patient reports ongoing abdominal pain, but that morphine helped Denies fever, chills, chest pain, shortness of breath, vomiting, diarrhea. Patient has not had a BM since admission. Does note some itching. Physical Exam Vital Signs: Temp Pulse Resp BP Pulse Ox 98.1 F 102 H 12 144/102 H 99 12/13/16 08:00 12/13/16 08:00 12/13/16 08:00 12/13/16 08:00 12/13/16 08:00 Intake & Output 12/12/16 12/13/16 12/14/16 06:59 06:59 06:59 Intake Total 2197 2400 Output Total 900 Balance 2197 1500 Weight 76.3 kg 76.3 kg Exam: General: Awake alert and oriented x3, no acute respiratory distress HEENT: AT/NC, PERRL, EOMI, oropharynx is moist, pink, no scleral icterus, no conjunctival injection Neck: No JVD, trachea midline Chest: Clear to auscultation bilaterally, no wheezes rhonchi or rales CV: Regular rate and rhythm, normal S1 and S2, no murmur, rub, or gallop Abdomen: Soft, mild tender to palpation rigo, nondistended, hypoactive bowel sounds; no rebound, rigidity, or guarding Extremities: No cyanosis, clubbing or edema Neuro: Cranial nerves II through XII are grossly intact without focal deficits; awake alert and oriented x3 Psych: Normal mood and affect Skin: multiple areas of self cutting on bilateral arms in various states of healing/scarring Results Laboratory Results: 12/13/16 03:50 12/13/16 06:17 12/13/16 12/13/16 12/13/16 03:50 03:50 06:17 WBC 6.8 RBC 4.45 Hgb 14.6 Hct 43.2 MCV 97 MCH 32.8 MCHC 33.8 RDW 14.3 H Plt Count 188 Seg Neutrophils % 71.4 Lymphocytes % 14.8 Monocytes % 9.5 Eosinophils % 3.7 Basophils % 0.6 Absolute Neutrophils 4.9 Absolute Lymphocytes 1.0 Absolute Monocytes 0.6 Absolute Eosinophils 0.3 Absolute Basophils 0.0 Sodium Cancelled 133.6 L Potassium Cancelled 3.3 L Chloride Cancelled 98 Carbon Dioxide Cancelled 24 Anion Gap Cancelled 12 BUN Cancelled < 2 L Creatinine Cancelled 0.51 L Est GFR ( Amer) Cancelled > 60 Est GFR (Non-Af Amer) Cancelled > 60 Glucose Cancelled 139 H Calcium Cancelled 9.2 Phosphorus Cancelled 2.8 Magnesium Cancelled 1.8 Total Bilirubin Cancelled 1.2 AST Cancelled 40 H ALT Cancelled 30 Alkaline Phosphatase Cancelled 134 H Total Protein Cancelled 6.3 Albumin Cancelled 3.6 Lipase Cancelled 894.2 H 12/11/16 03:50 Clean Catch Midstream Urine Culture - Final Mixed Urogenital Jacquelin Impressions: Abdomen Ultrasound 12/11/16 00:00 IMPRESSION: No acute findings. Obscured pancreas. Assessment & Plan - Diagnosis (1) Pancreatitis Qualifiers: Chronicity: acute Pancreatitis type: alcohol induced Acute pancreatitis complication: unspecified Qualified Code(s): K85.20 - Alcohol induced acute pancreatitis without necrosis or infection Is this a current diagnosis for this admission?: Yes Plan: US of gallbladder negative for stones FLP reveals normal triglycerides NPO Morphine for pain IVF pepcid IV bid (2) UTI (urinary tract infection) Qualifiers: Urinary tract infection type: acute cystitis Hematuria presence: without hematuria Qualified Code(s): N30.00 - Acute cystitis without hematuria Is this a current diagnosis for this admission?: Yes Plan: Completed Rocephin 3 days mixed urogenital jacquelin (3) Alcohol withdrawal Qualifiers: Complication of substance-induced condition: uncomplicated Qualified Code(s ): F10.230 - Alcohol dependence with withdrawal, uncomplicated Is this a current diagnosis for this admission?: Yes Plan: scheduled valium prn ativan thiamine and folic acid (4) Deliberate self-cutting Is this a current diagnosis for this admission?: Yes Plan: not felt to be at risk to herself or others suspect a BPD diagnosis Refer for outpatient therapy for substance abuse and BPD (5) Obesity (BMI 30.0-34.9) Is this a current diagnosis for this admission?: Yes (6) Hypomagnesemia Is this a current diagnosis for this admission?: Yes Plan: replete and recheck continue to monitor on telemetry (7) Hypokalemia Is this a current diagnosis for this admission?: Yes Plan: Replete and recheck Monitor for arrhythmia (8) Hypovitaminosis D Is this a current diagnosis for this admission?: Yes Plan: Will need vitamin D supplementation as an outpatient 12/11/16 12/12/16 05:56 07:07 Vitamin D 25-Hydroxy 4.0 L Vit D 1,25-Dihydroxy Pending - Time Time Spent with patient: 25-34 minutes Medications reviewed and adjusted accordingly: Yes Anticipated discharge: Home Within: within 48 hours - Inpatient Certification Based on my medical assessment, after consideration of the patient's comorbidities, presenting symptoms, or acuity I expect that the services needed warrant INPATIENT care.: Yes I certify that my determination is in accordance with my understanding of Medicare's requirements for reasonable and necessary INPATIENT services [42 CFR 412.3e].: Yes Medical Necessity: Need For IV Fluids, Need for Pain Control Post Hospital Care: D/C [employer] Documentation
[2016-12-13] MEDS: METOPROLOL TARTRATE PF/INJ 5 MG/5 ML SDV IV SCH ×2 (14:11→18:43)
[2016-12-13] MEDS ORDERED: POTASSI CL 20 MEQ/50 ML RIDER 20 MEQ/50 ML RTUPB IV SCH ×2 (18:15→19:00)
[2016-12-13] MEDS ORDERED: TRAZODONE HCL 50 MG TABLET PO SCH (22:00)
[2016-12-13] MEDS ORDERED: AMITRIPTYLINE HCL 50 MG TABLET PO SCH (22:00)
[2016-12-14] MEDS: ENALAPRILAT DIHYDRATE INJ/PF 1.25 MG/1 ML SDV IV SCH ×4 (00:23→18:24)
[2016-12-14] MEDS: LORAZEPAM INJ 2 MG/1 ML VIAL IV PRN ×2 (00:23→04:34)
[2016-12-14] MEDS: MORPHINE SULFATE 10 MG/ML INJ IV PRN ×2 (00:23→04:34)
[2016-12-14] MEDS: METOPROLOL TARTRATE PF/INJ 5 MG/5 ML SDV IV SCH ×4 (00:23→18:22)
[2016-12-14] MEDS: DEXTROSE 5%-NORMAL SALINE 1,000 ML IV PRN ×2 (00:52→05:50)
[2016-12-14 04:32] LABS: ABSOLUTE EOSINOPHILS # (AUTO) 0.3 10^3/uL (0.0-0.6); ABSOLUTE LYMPHOCYTES (AUTO) 0.7 10^3/uL (0.5-4.7); ABSOLUTE MONOCYTES (AUTO) 0.9 10^3/uL (0.1-1.4); ABSOLUTE NEUT (AUTO) 4.8 10^3/uL (1.7-8.2); BASOPHILS % (AUTO) 0.6 % (0-2); HEMOGLOBIN 13.3 g/dL (12.0-15.5); HGB HCT DIFFERENCE 0.9; LYMPHOCYTES % (AUTO) 10.7 % (13-45); MEAN CORPUSCULAR HEMOGLOBIN 32.8 pg (27.0-33.4); MEAN CORPUSCULAR VOLUME 97 fl (80-97); MONOCYTES % (AUTO) 12.9 % (3-13); RED BLOOD COUNT 4.04 10^6/uL (3.72-5.28); RED CELL DISTRIBUTION WIDTH 14.3 % (11.5-14.0); SEGMENTED NEUTROPHILS % (AUTO) 71.8 % (42-78); WHITE BLOOD COUNT 6.6 10^3/uL (4.0-10.5)
[2016-12-14 04:54] LABS: ALANINE AMINOTRANSFERASE 32 U/L (9-52); ALBUMIN 3.4 g/dL (3.5-5.0); ALKALINE PHOSPHATASE 125 U/L (38-126); ANION GAP 9 (5-19); ASPARTATE AMINO TRANSFERASE 69 U/L (14-36); BILIRUBIN,DIRECT 0.5 mg/dL (0.0-0.4); BILIRUBIN,TOTAL 0.9 mg/dL (0.2-1.3); CALCIUM 8.9 mg/dL (8.4-10.2); CARBON DIOXIDE 22 mmol/L (22-30); CHLORIDE 104 mmol/L (98-107); CREATININE RESULT 0.48 mg/dL (0.52-1.25); GLUCOSE 122 mg/dL (75-110); PHOSPHORUS 1.9 mg/dL (2.5-4.5); POTASSIUM 3.8 mmol/L (3.6-5.0); SODIUM 134.7 mmol/L (137-145); TOTAL PROTEIN 6.2 g/dL (6.3-8.2)
[2016-12-14 04:56] LABS: BLOOD UREA NITROGEN < 2 mg/dL (7-20)
[2016-12-14] MEDS: HEPARIN SOD (PORCINE) 5,000 UNIT/ML 1 ML SYRINGE SUBCUT SCH ×3 (06:44→21:15)
[2016-12-14] MEDS ORDERED: POTASSIUM PHOS,M-BASIC-D-BASIC 30 MMOL in NORMAL SALINE 500 ML IV ONE (07:34)
[2016-12-14] MEDS ORDERED: MORPHINE SULFATE 10 MG/ML INJ IV PRN (07:35)
--- NOTE | 2016-12-14 08:08 | PSYCHOLOGICAL NOTE ---
Psych Note - Psych Note Psych Note: DAVONTE ANTONY is a 25 year old female with a past medical history of obesity , depression, self injury with cutting, alcohol dependence, alcoholic pancreatitis and tobacco dependence. Patient been her usual state of health until binging on vodka approximately 72 hours ago resulting in intolerance of p.o. and recurrent vomiting on attempts with epigastric mid abdominal pain radiating to the back. She recognizes the symptoms from several previous episodes. In the emergency room she is found to have markedly abnormal chemical derangement with metabolic acidosis, abnormal LFTs and acute pancreatitis. She is tremulous and tachycardic referred to the hospitalist for admission, for the above. Patient is noted to have several dozen recent appearing lacerations to the left wrist, patient denies these are recent. Psychiatric conduction requested for concerns of self ham and suicidal ideation. Patient disclosed she has a history of cutting however denies that the lacerations on her wrist are new. She stated she cut approximately 1 or 2 weeks ago (clinician notes patient's wrist has multiple superficial lacerations that is scabbed). Patient disclosed she has a history of alcohol abuse however she was sober for a few months prior to starting again. Patient states she just moved here from [place] approximately 2 months ago. Patient states she has been stressed and it just "snowballed and I went overboard." Patient denies previous inpatient psychiatric treatments states she does not take any medications and currently has no outpatient provider in the local area. Patient disclosed that she suffers from social anxiety but denies being a danger to herself or others. Patient disclosed that she has been diagnosed with depression and anxiety since about 14 years old. Patient provided mother' s contact information. Clinician was approached by patient's sitter; she disclosed patient was observed "putting her hand down her throat" to induce vomiting. Clinician contacted patient's mother, Evelyne [phone] she disclosed she is currently in [place], and is unable to come back until the . She disclosed that she is the main support system for the patient however patient's father is home; he just has to go to work so cannot be with her all day ." She reports the patient has "mental health issues with autistic tendencies" in addition to panic and anxiety. She disclosed that since they moved to [place] she has noticed an increase in the patient's anxiety and panic attacks. She disclosed the patient has a history of cutting to relieve anxiety. She discloses the patient is not currently on medication because she does not want to take it. Impression\\plan: Patient is alert and orientated to person, place, time and circumstance. Mood is euthymic with congruent affect. Patient denies suicidal and homicidal ideation. Patient denies auditory and visual hallucinations. Delusions were absent and behavior is congruent with an intact reality based presentation ( i.e. organized, linear, rational thinking). Eye contact was fair. Conversational speech was within normal rate, tone and prosody. Intellectual abilities appear to be within the average range. Attention and concentration were good. Insight, judgment, impulse control appears to be historically poor. Alcohol abuse Opiate abuse Unspecified depressive disorder per history provided by patient unspecified anxiety disorder per history provided by patient and patient's family Patient is demonstrating cluster B personality traits Patient is considered psychiatrically clear for discharge. Patient does not meet IVC criteria per [place] GS 120 2C. Patient denies suicidal and homicidal ideation. Delusions were absent and behavior is congruent with an intact reality based presentation (i.e. organized, linear, rational thinking). Patient 's family and patient reports she is not taking medication for her mental health and has refused to take it in the past. Patient is recommended to follow -up with outpatient services upon discharge to address both mental health and substance abuse. Dr. Rogers was consulted on the care and management of this patient.
[2016-12-14] MEDS: DIAZEPAM 5 MG TABLET PO SCH (08:36)
[2016-12-14] MEDS: FAMOTIDINE INJ/PF 20 MG/2 ML SDV IV SCH ×2 (08:37→21:07)
[2016-12-14] MEDS ORDERED: NORMAL SALINE 1000 ML 1,000 ML IV ONE (09:40)
[2016-12-14] MEDS: THIAMINE HCL 100 MG, FOLIC ACID 1 MG in NORMAL SALINE 50 ML IV SCH (10:55)
--- NOTE | 2016-12-14 14:33 | PDOC PROGRESS REPORT ---
Subjective Progress Note for:: 12/14/16 Subjective:: Patient developed acute encephalopathy overnight that worsened with administration of morphine and ativan. Patient is somewhat confused still. Discussed care and plan with patient father at great length. Unable to obtain ROS secondary to encephalopathy Physical Exam Vital Signs: Temp Pulse Resp BP Pulse Ox 98.2 F 85 16 136/96 H 97 12/14/16 08:05 12/14/16 08:05 12/14/16 08:05 12/14/16 08:05 12/14/16 08:05 Intake & Output 12/13/16 12/14/16 12/15/16 06:59 06:59 06:59 Intake Total 2400 5200 Output Total 900 1650 Balance 1500 3550 Weight 76.3 kg 72.6 kg Exam: General: Awake alert and oriented x2, confused, no acute respiratory distress HEENT: AT/NC, PERRL, EOMI, oropharynx is dry, pink, no scleral icterus, no conjunctival injection Neck: No JVD, trachea midline Chest: Clear to auscultation bilaterally, no wheezes rhonchi or rales CV: Regular rate and rhythm, normal S1 and S2, no murmur, rub, or gallop Abdomen: Soft, NTTP, nondistended, hypoactive bowel sounds; no rebound, rigidity , or guarding Extremities: No cyanosis, clubbing or edema Neuro: Cranial nerves II through XII are grossly intact without focal deficits Psych: depressed and withdrawn, confused Skin: multiple areas of self cutting on bilateral arms in various states of healing/scarring Results Laboratory Results: 12/14/16 03:47 12/14/16 03:47 12/14/16 12/14/16 03:47 03:47 WBC 6.6 RBC 4.04 Hgb 13.3 Hct 39.0 MCV 97 MCH 32.8 MCHC 34.0 RDW 14.3 H Plt Count 177 Seg Neutrophils % 71.8 Lymphocytes % 10.7 L Monocytes % 12.9 Eosinophils % 4.0 Basophils % 0.6 Absolute Neutrophils 4.8 Absolute Lymphocytes 0.7 Absolute Monocytes 0.9 Absolute Eosinophils 0.3 Absolute Basophils 0.0 Sodium 134.7 L Potassium 3.8 Chloride 104 Carbon Dioxide 22 Anion Gap 9 BUN < 2 L Creatinine 0.48 L Est GFR ( Amer) > 60 Est GFR (Non-Af Amer) > 60 Glucose 122 H Calcium 8.9 Phosphorus 1.9 L Magnesium 2.0 Total Bilirubin 0.9 AST 69 H ALT 32 Alkaline Phosphatase 125 Total Protein 6.2 L Albumin 3.4 L Impressions: Abdomen Ultrasound 12/11/16 00:00 IMPRESSION: No acute findings. Obscured pancreas. Assessment & Plan - Diagnosis (1) Acute encephalopathy Is this a current diagnosis for this admission?: Yes Plan: 2/2 polypharmacy Stop scheduled valium, ativan, morphine, elavil, and trazodone Will use haldol or geodon for agitation (2) Pancreatitis Qualifiers: Chronicity: acute Pancreatitis type: alcohol induced Acute pancreatitis complication: unspecified Qualified Code(s): K85.20 - Alcohol induced acute pancreatitis without necrosis or infection Is this a current diagnosis for this admission?: Yes Plan: 2/2 to acute alcohol abuse US of gallbladder negative for stones FLP reveals normal triglycerides pepcid IV bid Stop morphine ADAT Continue IVF 2/2 dehydration (3) UTI (urinary tract infection) Qualifiers: Urinary tract infection type: acute cystitis Hematuria presence: without hematuria Qualified Code(s): N30.00 - Acute cystitis without hematuria Is this a current diagnosis for this admission?: Yes Plan: Completed Rocephin 3 days mixed urogenital michelle (4) Alcohol withdrawal Qualifiers: Complication of substance-induced condition: with delirium Qualified Code(s ): F10.231 - Alcohol dependence with withdrawal delirium Is this a current diagnosis for this admission?: Yes Plan: According to patient father, only 2 weeks of binge drinking stop scheduled valium monitor for s/s of withdrawal thiamine and folic acid (5) Deliberate self-cutting Is this a current diagnosis for this admission?: Yes Plan: not felt to be at risk to herself or others, IVC rescinded suspect a BPD diagnosis and possible bipolar Refer for outpatient therapy for substance abuse and BPD and medication management (6) Hypomagnesemia Is this a current diagnosis for this admission?: Yes Plan: Improved continue to monitor on telemetry (7) Hypokalemia Is this a current diagnosis for this admission?: Yes Plan: Improved Monitor for arrhythmia (8) Hypovitaminosis D Is this a current diagnosis for this admission?: Yes Plan: Will need vitamin D supplementation as an outpatient 12/11/16 12/12/16 05:56 07:07 Vitamin D 25-Hydroxy 4.0 L Vit D 1,25-Dihydroxy Pending (9) Obesity (BMI 30.0-34.9) Is this a current diagnosis for this admission?: Yes - Time Time Spent with patient: 35 or more minutes Medications reviewed and adjusted accordingly: Yes Anticipated discharge: Home Within: within 48 hours - Inpatient Certification Medical Necessity: Need For IV Fluids
[2016-12-14] MEDS ORDERED: CLONIDINE HCL 0.1 MG TABLET PO PRN (16:06)
[2016-12-14] MEDS: KETOROLAC TROMETHAMINE INJ/PF 30 MG/1 ML SDV IV PRN (21:07)
[2016-12-14] MEDS ORDERED: TRAZODONE HCL 50 MG TABLET PO SCH (22:00)
[2016-12-15] MEDS: METOPROLOL TARTRATE PF/INJ 5 MG/5 ML SDV IV SCH ×2 (00:04→06:31)
[2016-12-15] MEDS: ENALAPRILAT DIHYDRATE INJ/PF 1.25 MG/1 ML SDV IV SCH ×2 (00:04→06:31)
[2016-12-15] MEDS: HEPARIN SOD (PORCINE) 5,000 UNIT/ML 1 ML SYRINGE SUBCUT SCH (06:15)
[2016-12-15] MEDS: KETOROLAC TROMETHAMINE INJ/PF 30 MG/1 ML SDV IV PRN (06:32)
[2016-12-15 09:16] VITALS: BP 138/108
[2016-12-15] MEDS ORDERED: OXYCODONE HCL IR 5 MG TABLET PO ONE (11:00)
[2016-12-15] MEDS: THIAMINE HCL 100 MG, FOLIC ACID 1 MG in NORMAL SALINE 50 ML IV SCH (11:43)
[2016-12-15] MEDS: FAMOTIDINE INJ/PF 20 MG/2 ML SDV IV SCH (11:43)
--- NOTE | 2016-12-15 12:02 | RADIOLOGY REPORT (SQ) ---
EXAM DESCRIPTION: CT ABD/PELVIS WITH IV ONLY COMPLETED DATE/TIME: 12/11/2016 4:24 am REASON FOR STUDY: pancreatitis COMPARISON: None. LIMITATIONS: None. FINDINGS: 72 cc Isovue [address] of the abdomen pelvis with coronal/sagittal rib formation performed. Findings:is small to moderate fluid and mild fat streaking surrounding the pancreas and between the p ancreas -2nd portion of the duodenum. Small free pelvic fluid. Moderate hepatic steatosis. Spleen, bilateral adrenal glands, mildly hydropic gallbladder, renal system, vasculature, and pelvic organs appear otherwise unremarkable. Intact muscle skeleton. IMPRESSION: [id number] acute pancreatitis pattern. TECHNICAL DOCUMENTATION: JOB ID: [id number] [employer]- All Rights Reserved
--- NOTE | 2016-12-15 17:52 | PDOC DISCHARGE SUMMARY ---
General - Admit/Disc Date/PCP Admission Date/Primary Care Provider: 12/11/16 00:35 Discharge Date: 12/15/16 - Discharge Diagnosis (1) Acute encephalopathy Is this a current diagnosis for this admission?: Yes (2) Pancreatitis Is this a current diagnosis for this admission?: Yes (3) UTI (urinary tract infection) Is this a current diagnosis for this admission?: Yes (4) Alcohol withdrawal Is this a current diagnosis for this admission?: Yes (5) Deliberate self-cutting Is this a current diagnosis for this admission?: Yes (6) Hypomagnesemia Is this a current diagnosis for this admission?: Yes (7) Hypokalemia Is this a current diagnosis for this admission?: Yes (8) Hypovitaminosis D Is this a current diagnosis for this admission?: Yes (9) Obesity (BMI 30.0-34.9) Is this a current diagnosis for this admission?: Yes - Additional Information Resuscitation Status: Full Code Discharge Diet: Cardiac Discharge Activity: Activity As Tolerated Home Medications: Atenolol [Tenormin 50 mg Tablet] 25 mg PO DAILY #30 tablet 12/15/16 Esomeprazole Magnesium [Nexium] 20 mg PO DAILY #30 capsule. 12/15/16 Lorazepam [Ativan 1 mg Tablet] 1 mg PO Q8HP PRN #4 tablet 12/15/16 Ondansetron [Zofran Odt 4 mg Tablet] 1 - 2 tab PO Q4HP PRN #10 tab.rapsylvia Tramadol HCl [Ultram 50 mg Tablet] 50 mg PO Q6HP PRN #10 tablet 12/15/16 History of Present Illness History of Present Illness: Please see H&P for full HPI Hospital Course Hospital Course: Patient is a 25-year-old female with a history of depression, alcohol abuse, self cutting, and prior episodes of pancreatitis secondary to alcohol abuse who presented to the emergency department with complaints of abdominal pain and nausea. Patient had been in her normal state of health until about 72 hours prior to presentation when she was binging on vodka. She had recurrent vomiting and midepigastric pain radiating to the back. In the emergency department she was found to have metabolic acidosis, abnormal LFTs, and acute pancreatitis. Patient was tremulous and tachycardic and referred to hospital service for admission. Patient was seen by psychology for her self cutting and they felt at that time that she was not a danger to herself and IVC was lifted. Patient was treated for her alcohol withdrawal and this improved. Patient was treated with n.p.o. and IV fluids and morphine for her pancreatitis. Patient was able to tolerate p.o. for prior to discharge. Approximately 48 hours prior to discharge, patient became confused and crawling around on the floor with perceptual disturbances. This was felt to be secondary to Ativan and morphine administration. Patient seemed to worsen with these medications. These were stopped and patient's mentation cleared. I discussed at great length with her family the need for patient to undergo outpatient psychiatric therapy for her substance abuse as well as for her depression. Patient was found to be mildly vitamin D deficient. Was started on oral vitamin D. Patient 's mental status cleared prior to discharge. She reported a small bowel movement prior to discharge. Patient reports some nausea but has been tolerating p.o. Patient is now at 7 days out from her last drink and therefore not at risk for DTs or seizure. Patient's lipase trended down nicely. And patient's symptomatology also improved. There was some concern by psychology for BPD. Patient is advised to get help as an outpatient. She is currently discharged in stable condition. Patient was found to have some hypertension which improved with the administration of beta blockers. Patient does admit to great social anxiety on discharge was given prescription for atenolol. I was contacted by her pharmacy which reported a national shortage of atenolol, and I transition this to metoprolol. Outpatient follow-up was set up for patient prior to discharge. She was discharged to her parents in stable condition Physical Exam Vital Signs: Temp Pulse Resp BP Pulse Ox 97.6 F 88 17 138/108 H 100 12/15/16 08:04 12/15/16 08:04 12/15/16 08:04 12/15/16 08:04 12/15/16 08:04 Intake & Output 12/14/16 12/15/16 12/16/16 06:59 06:59 06:59 Intake Total 5200 2158 Output Total 4700 2775 Balance 3550 -617 Weight 72.5 kg 72.6 kg Exam: General: Awake alert and oriented x3, no acute respiratory distress HEENT: AT/NC, PERRL, EOMI, oropharynx is moist, pink, no scleral icterus, no conjunctival injection Neck: No JVD, trachea midline Chest: Clear to auscultation bilaterally, no wheezes rhonchi or rales CV: Regular rate and rhythm, normal S1 and S2, no murmur, rub, or gallop Abdomen: Soft, mild TTP to deep palpation, nondistended, hypoactive bowel sounds ; no rebound, rigidity, or guarding Extremities: No cyanosis, clubbing or edema Neuro: Cranial nerves II through XII are grossly intact without focal deficits Psych: flat affect, depressed mood Skin: Lightly erythematous facial plaques around hair, Multiple areas of self cutting on bilateral arms in various states of healing/scarring Results Laboratory Results: 12/14/16 03:47 12/14/16 03:47 Impressions: Abdomen Ultrasound 12/11/16 00:00 IMPRESSION: No acute findings. Obscured pancreas. Abdomen/Pelvis CT 12/11/16 00:00 IMPRESSION: [id number] acute pancreatitis pattern. Qualifiers PATEINT BEING DISCHARGED WITH ANY OF THE FOLLOWING DIAGNOSIS?: No Plan Time Spent: Less than 30 Minutes
== END 2016-12-15 12:35 | disposition home or self-care (01) | DRG 438 ==
LOC: ER 18:07 → EH 12-11 00:25 → OBSVTOIN 12-11 00:35 → 4S 12-11 02:31 → 4N 12-12 17:46
PROVIDERS: ADMIT Internal Medicine; ATTEND Internal Medicine
DX: K85.20 Alcohol induced acute pancreatitis without necrosis or infection (principal); G93.40 Encephalopathy, unspecified; N30.00 Acute cystitis without hematuria; F10.231 Alcohol dependence with withdrawal delirium; E83.42 Hypomagnesemia; E87.6 Hypokalemia; L30.9 Dermatitis, unspecified; E66.9 Obesity, unspecified; Z68.31 Body mass index [BMI] 31.0-31.9, adult; F32.9 Major depressive disorder, single episode, unspecified; F41.1 Generalized anxiety disorder; F90.9 Attention-deficit hyperactivity disorder, unspecified type; Z91.5 Personal history of self-harm; F17.200 Nicotine dependence, unspecified, uncomplicated
CPT/HCPCS: 36415; 74177; 76705; 80053; 80061; 80307; 81001; 82306; 82652; 83690; 83735; 84100; 84703; 85025; 87086; 96361; 96374; 96375; 99285; J1644; J1885; J2060; J2270; J2405; J2765; J3360; J3411; J3475; J3480; J3490; J7030; J7040; J7120; S0028

== ENCOUNTER 2017-10-07 10:55 | Emergency (ER) | payer BC ==
[2017-10-07] MEDS ORDERED: ONDANSETRON 4 MG TAB.RAPDIS PO ONE (11:54)
[2017-10-07] MEDS ORDERED: RINGERS SOLUTION,LACTATED 1,000 ML IV ONE (11:56)
--- NOTE | 2017-10-07 11:56 | ER Document Report ---
ED Medical Screen (RME) - General Chief Complaint: Nausea/Vomiting Stated Complaint: VOMITING Time Seen by Provider: 10/07/17 11:48 TRAVEL OUTSIDE OF THE [place] IN LAST 30 DAYS: No - HPI Notes: 10/07/17 11:55 History of chronic alcoholism last drink 2 days ago patient coming on multiple days of vomiting along with diarrhea tachycardic slight hypertension patient is hyperventilating and anxious patient is pale - Related Data Allergies/Adverse Reactions: No Known Allergies Allergy (Verified 10/07/17 11:03) Past Medical History - Social History Frequency of alcohol use: Heavy Drug Abuse: None Neurological Medical History: Reports: Hx Migraine Renal/ Medical History: Denies: Hx Peritoneal Dialysis GI Medical History: Reports: Hx Hepatitis - Alcoholic pancreatitis Psychiatric Medical History: Reports: Hx Attention Deficit Hyperactivity Disorder, Hx Depression Infectious Medical History: Reports: Hx Hepatitis - Alcoholic pancreatitis Past Surgical History: Reports: Hx Tonsillectomy Review of Systems - Review of Systems Gastrointestinal: Nausea, Vomiting -: Yes All other systems reviewed and negative Physical Exam - General General appearance: Appears well In distress: None - Respiratory Respiratory status: Tachypnea Breath sounds: Normal
--- NOTE | 2017-10-07 12:36 | ER Document Report ---
ED GI/ - General Chief Complaint: Nausea/Vomiting Stated Complaint: VOMITING Time Seen by Provider: 10/07/17 11:48 Notes: The patient is a 26-year-old female, past medical history alcohol induced pancreatitis, presents with 2 days of nausea, vomiting and epigastric pain. She also feeling short of breath and is hyperventilating on arrival to the ER. Patient says she is very anxious and uses alcohol to help with her anxiety. She stopped drinking alcohol 2 days ago cold turkey, but she does not think she had any withdrawal seizures. She denies hematemesis, fevers, diarrhea, constipation , SI, HI, urinary symptoms, back pain, cough, chest pain or rash. TRAVEL OUTSIDE OF THE [place] IN LAST 30 DAYS: No - Related Data Allergies/Adverse Reactions: No Known Allergies Allergy (Verified 10/07/17 11:03) Past Medical History - General Information source: Patient - Social History Smoking Status: Never Smoker Frequency of alcohol use: Heavy Drug Abuse: None Family History: Hypertension, Other - Alcohol dependence, depression Patient has suicidal ideation: No Patient has homicidal ideation: No Neurological Medical History: Reports: Hx Migraine Renal/ Medical History: Denies: Hx Peritoneal Dialysis GI Medical History: Reports: Hx Hepatitis - Alcoholic pancreatitis Psychiatric Medical History: Reports: Hx Attention Deficit Hyperactivity Disorder, Hx Depression Infectious Medical History: Reports: Hx Hepatitis - Alcoholic pancreatitis Past Surgical History: Reports: Hx Tonsillectomy Review of Systems - Review of Systems Notes: REVIEW OF SYSTEMS: CONSTITUTIONAL: -fevers, -chills EENT: -eye pain, -difficulty swallowing, -nasal congestion CARDIOVASCULAR: -chest pain, -syncope. RESPIRATORY: -cough, +SOB GASTROINTESTINAL: +epigastric abdominal pain, +nausea, +vomiting, -diarrhea GENITOURINARY: -dysuria, -hematuria MUSCULOSKELETAL: -back pain, -neck pain SKIN: -rash or skin lesions. HEMATOLOGIC: -easy bruising or bleeding. LYMPHATIC: -swollen, enlarged glands. NEUROLOGICAL: -altered mental status or loss of consciousness, -headache, - neurologic symptoms PSYCHIATRIC: -anxiety, -depression. ALL OTHER SYSTEMS REVIEWED AND NEGATIVE. Physical Exam - Vital signs Vitals: Resp Pulse Ox 26 H 97 10/07/17 12:23 10/07/17 12:23 - Notes Notes: PHYSICAL EXAMINATION: GENERAL: In no acute distress. HEAD: Atraumatic, normocephalic. EYES: Pupils equal round and reactive to light, extraocular movements intact, sclera anicteric, conjunctiva are normal. ENT: nares patent, oropharynx clear without exudates. Moist mucous membranes. NECK: Normal range of motion, supple without lymphadenopathy LUNGS: Breath sounds clear to auscultation bilaterally and equal. No wheezes rales or rhonchi. HEART: Tachycardia, regular rhythm ABDOMEN: Soft, mild epigastric tenderness, normoactive bowel sounds. No guarding, no rebound. No masses appreciated. EXTREMITIES: Normal range of motion, no pitting or edema. No cyanosis. NEUROLOGICAL: Cranial nerves grossly intact. Normal speech, normal gait. Normal sensory and motor exams. PSYCH: Anxious affect. SKIN: Warm, Dry, normal turgor, no rashes or lesions noted. Course - Re-evaluation Re-evalutation: Patient tachycardic slightly hypertensive on arrival. She is hyperventilating, but this resolved after she was in a quiet room. She has a leukocytosis of 22, 000, potassium 2.2 and a lactate of 15. CT abdomen and pelvis obtained, which shows two pancreatic pseudocyst. Concern for an infected pseudocyst, even without any inflammatory changes. Zosyn started. No other source of infection at this time to explain her elevated lactate or leukocytosis. Patient has not had any alcohol withdrawal seizures and her CIWA Score is 2 after Atvian. Spoke to the surgeon, Dr. Richard, at 17:10 and he recommends transferring to a higher center care for IR and pancreatic surgery. Placed call to [facility] Transfer Center and awaiting callback. 10/07/17 17:[address] Hewitt ([facility] Hospitalist) and she has accepted the patient. - Vital Signs Vital signs: Temp Pulse Resp BP Pulse Ox 19 140/91 H 96 10/07/17 14:00 10/07/17 13:00 10/07/17 14:00 - Laboratory Result Diagrams: 10/07/17 12:20 10/07/17 13:55 Laboratory results interpreted by me: 10/07/17 10/07/17 10/07/17 12:20 12:20 12:20 WBC 22.3 H MCV 99 H Plt Count 514 H Metamyelocytes % 1 H Abs Neuts (Manual) 14.7 H Abs Monocytes (Manual) 2.5 H PT 16.8 H VBG pH 7.28 L VBG pCO2 20.1 L VBG HCO3 9.1 L Sodium Potassium Chloride Carbon Dioxide Anion Gap BUN Est GFR (Non-Af Amer) Lactic Acid Total Bilirubin Direct Bilirubin AST Alkaline Phosphatase Total Protein Albumin 10/07/17 10/07/17 13:55 13:55 WBC MCV Plt Count Metamyelocytes % Abs Neuts (Manual) Abs Monocytes (Manual) PT VBG pH VBG pCO2 VBG HCO3 Sodium 131.8 L Potassium 2.2 L* Chloride 79 L Carbon Dioxide 21 L Anion Gap 32 H BUN 6 L Est GFR (Non-Af Amer) 58 L Lactic Acid 15.1 H Total Bilirubin 2.5 H Direct Bilirubin 1.9 H AST 84 H Alkaline Phosphatase 131 H Total Protein 5.3 L Albumin 3.2 L - Diagnostic Test Radiology reviewed: Image reviewed, Reports reviewed Radiology results interpreted by me: CXR: NAD CT A/P: 2 cysts are seen of the tail of the pancreas, concerning for pseudo cyst , the larger 6.1 cm. No acute inflammatory change. Diffuse fatty change with prominent liver. - EKG Interpretation by Me EKG shows normal: Sinus rhythm, Corry, Intervals, QRS Complexes, ST-T Waves Rate: Tachycardia Critical Care Note - Critical Care Note Total time excluding time spent on procedures (mins): 45 Discharge - Discharge Clinical Impression: Elevated lactic acid level, Hypokalemia, Infected pancreatic pseudocyst Condition: Stable Disposition: [facility]
[2017-10-07 12:44] LABS: HEMATOCRIT 46.9 % (36.0-47.0); HEMOGLOBIN 15.4 g/dL (12.0-15.5); MEAN CORPUSCULAR HEMOGLOBIN 32.6 pg (27.0-33.4); MEAN CORPUSCULAR HGB CONC 32.9 g/dL (32.0-36.0); MEAN CORPUSCULAR VOLUME 99 fl (80-97); PLATELET COUNT 514 10^3/uL (150-450); RED BLOOD COUNT 4.73 10^6/uL (3.72-5.28); RED CELL DISTRIBUTION WIDTH 13.4 % (11.5-14.0); WHITE BLOOD COUNT 22.3 10^3/uL (4.0-10.5)
[2017-10-07 12:45] LABS: VENOUS BLOOD BASE EXCESS -15.1 mmol/L; VENOUS BLOOD HCO3 9.1 mmol/L (20-32); VENOUS BLOOD PCO2 20.1 mmHg (35-63); VENOUS BLOOD PH 7.28 (7.30-7.42)
[2017-10-07 12:47] LABS: PROTHROMBIN TIME 16.8 SEC (11.4-15.4)
[2017-10-07 13:14] LABS: ABSOLUTE LYMPHOCYTES# (MANUAL) 4.7 10^3/uL (0.5-4.7); ABSOLUTE MONOCYTES # (MANUAL) 2.5 10^3/uL (0.1-1.4); ABSOLUTE NEUTROPHILS# (MANUAL) 14.7 10^3/uL (1.7-8.2); BAND NEUTROPHILS % (MANUAL) 4 % (3-5); BASOPHILS % (MANUAL) 0 % (0-2); EOSINOPHILS % (MANUAL) 2 % (0-6); HYPOCHROMASIA SLIGHT; LYMPHOCYTES % (MANUAL) 21 % (13-45); METAMYELOCYTES % (MANUAL) 1 % (0); MONOCYTES % (MANUAL) 11 % (3-13); PLATELET COMMENT INCREASED; POLYCHROMASIA SLIGHT; SEGMENTED NEUTROPHILS % (MAN) 61 % (42-78); TOTAL CELLS COUNTED 100; TOXIC GRANULATION SLIGHT
--- NOTE | 2017-10-07 13:26 | EKG REPORT ---
SEVERITY:- ABNORMAL ECG - SINUS TACHYCARDIA CAROLA, CONSIDER BIATRIAL ABNORMALITIES REPOL ABNRM SUGGESTS ISCHEMIA, ANT-LAT LEADS : Confirmed by: Benja Rueda MD 07-Oct-2017 13:25:15
[2017-10-07] MEDS ORDERED: LORAZEPAM INJ 2 MG/1 ML VIAL IV ONE (13:27)
[2017-10-07] MEDS ORDERED: METOCLOPRAMIDE HCL INJ/PF 10 MG/2 ML SDV IV ONE (13:51)
[2017-10-07] MEDS: NORMAL SALINE 1000 ML 1,000 ML IV PRN ×2 (13:56→16:12)
[2017-10-07] MEDS ORDERED: CEFTRIAXONE 1 GM/D5W RTU 1 GM/50 ML RTUPB IV SCH (14:00)
--- NOTE | 2017-10-07 14:12 | RADIOLOGY REPORT (SQ) ---
EXAM DESCRIPTION: CHEST SINGLE VIEW portable COMPLETED DATE/TIME: 10/07/2017 1:19 pm REASON FOR STUDY: SOB COMPARISON: None. EXAM PARAMETERS: NUMBER OF VIEWS: One view. TECHNIQUE: Single frontal radiographic view of the chest acquired. RADIATION DOSE: NA LIMITATIONS: None. FINDINGS: LUNGS AND PLEURA: No opacities, masses or pneumothorax. No pleural effusion. MEDIASTINUM AND HILAR STRUCTURES: No masses. Contour normal. HEART AND VASCULAR STRUCTURES: Heart normal in size. Normal vasculature. BONES: No acute findings. HARDWARE: None in the chest. OTHER: No other significant finding. IMPRESSION: NO ACUTE RADIOGRAPHIC FINDING IN THE CHEST. TECHNICAL DOCUMENTATION: JOB ID: [id number] [employer]- All Rights Reserved Reading location - IP/workstation name: [email or web address]
[2017-10-07 14:46] LABS: ALANINE AMINOTRANSFERASE 20 U/L (9-52); ALBUMIN 3.2 g/dL (3.5-5.0); ALKALINE PHOSPHATASE 131 U/L (38-126); BILIRUBIN,DIRECT 1.9 mg/dL (0.0-0.4); BILIRUBIN,TOTAL 2.5 mg/dL (0.2-1.3); BLOOD UREA NITROGEN 6 mg/dL (7-20); CALCIUM 8.7 mg/dL (8.4-10.2); GLUCOSE 110 mg/dL (75-110); LIPASE 135.1 U/L (23-300); TOTAL PROTEIN 5.3 g/dL (6.3-8.2)
[2017-10-07 14:54] LABS: ASPARTATE AMINO TRANSFERASE 84 U/L (14-36); CARBON DIOXIDE 21 mmol/L (22-30); CHLORIDE 79 mmol/L (98-107); SODIUM 131.8 mmol/L (137-145)
[2017-10-07 14:55] LABS: ALCOHOL < 10 mg/dL (NONE DETECTED)
[2017-10-07 14:57] LABS: ANION GAP 32 (5-19)
[2017-10-07] MEDS ORDERED: POTASSIUM CHLORIDE 10 MEQ TABLET.SA PO ONE ×2 (14:57→18:18)
[2017-10-07 14:58] LABS: POTASSIUM 2.2 mmol/L (3.6-5.0)
--- NOTE | 2017-10-07 15:35 | RADIOLOGY REPORT (SQ) ---
EXAM DESCRIPTION: CT ABD/PELVIS WITH IV ONLY COMPLETED DATE/TIME: 10/07/2017 3:14 pm REASON FOR STUDY: abdominal pain, lactate 26.3 COMPARISON: 12/11/2016 TECHNIQUE: CT scan of the abdomen and pelvis performed using helical scanning technique with dynamic intravenous contrast injection. No oral contrast. Images reviewed with lung, soft tissue, and bone windows. Reconstructed coronal and sagittal MPR images reviewed. Delayed images for evaluation of the urinary system also acquired. All images stored on PACS. All CT scanners at this facility use dose modulation, iterative reconstruction, and/or weight based d osing when appropriate to reduce radiation dose to as low as reasonably achievable (ALARA). [facility]: Dose Right [facility]: CareDose [facility]: Dose Right [facility]: Teradose 4D [facility]: UB Access CONTRAST TYPE AND DOSE: contrast/concentration: Isovue 370.00 mg/ml; Total Contrast Delivered: 70.0 ml; Total Saline Delivered: 41.0 ml 70 mL Isovue 370 intravenously RENAL FUNCTION: Not required for younger patients. RADIATION DOSE: CT Rad equipment meets quality standard of care and radiation dose reduction techniq ues were employed. CTDIvol: 5.6 - 7.6 mGy. DLP: 1167 mGy-cm.. LIMITATIONS: None. FINDINGS: LOWER CHEST: No significant findings. No nodules or infiltrates. LIVER: Diffuse fatty change from prominent liver again seen. No ascites. SPLEEN: Normal size. No focal lesions. PANCREAS: No acute inflammatory change. 6.1 cm cystic structure adjacent to the tail of the pancreas concerning for pseudo cyst. Additional 2.5 cm nearby likely pseudocyst of the tail. New finding fr om prior study at which time acute pancreatitis with seen. GALLBLADDER: No calcified stones. No pericholecystic inflammatory change. ADRENAL GLANDS: No significant masses or asymmetry. RIGHT KIDNEY AND URETER: No solid masses. No significant calcifications. No hydronephrosis or hyd roureter. LEFT KIDNEY AND URETER: No solid masses. No significant calcifications. No hydronephrosis or hydr oureter. AORTA AND VESSELS: No AAA. RETROPERITONEUM: No retroperitoneal adenopathy, hemorrhage or masses. BOWEL AND PERITONEAL CAVITY: No masses or inflammatory changes. No free fluid or peritoneal masses. APPENDIX: Not seen. PELVIS: No mass. No free fluid. Normal bladder. ABDOMINAL WALL: No masses. No hernias. BONES: No significant or acute findings. OTHER: No other significant finding. IMPRESSION: 2 cysts are seen of the tail of the pancreas, concerning for pseudo cyst, the larger 6.1 cm. No acute inflammatory change. Diffuse fatty change with prominent liver. TECHNICAL DOCUMENTATION: JOB ID: [id number] Quality ID # [id number]: Final reports with documentation of one or more dose reduction techniques (e.g., Au tomated exposure control, adjustment of the mA and/or kV according to patient size, use of iterative reconstruction technique) 2010 [employer]- All Rights Reserved Reading location - IP/workstation name: [email or web address]
[2017-10-07] MEDS ORDERED: PIPERACILLIN/TAZOBACTAM 3.375 GM VIAL IV ONE (16:00)
[2017-10-07] MEDS: POTASSI CL 20 MEQ/50 ML RIDER 20 MEQ/50 ML RTUPB IV SCH ×3 (17:26→20:29)
[2017-10-07] MEDS ORDERED: DEXTROSE 5%-NORMAL SALINE 1,000 ML IV PRN (17:45)
[2017-10-07] MEDS ORDERED: ONDANSETRON 4 MG TAB.RAPDIS PO PRN (17:47)
[2017-10-07 17:50] LABS: APPEARANCE,URINE CLOUDY; BILIRUBIN,URINE NEGATIVE (NEGATIVE); COLOR,URINE AMBER; GLUCOSE, URINE 50 mg/dL (NEGATIVE); KETONES,URINE TRACE mg/dL (NEGATIVE); LEUKOCYTE ESTERASE,URINE NEGATIVE (NEGATIVE); NITRITE,URINE NEGATIVE (NEGATIVE); PROTEIN,URINE 100 mg/dL (NEGATIVE); URINE SPECIFIC GRAVITY > 1.060
[2017-10-07] MEDS ORDERED: FENTANYL CITRATE INJ/PF 100 MCG/2 ML AMPUL IV PRN (18:19)
[2017-10-07] MEDS ORDERED: LORAZEPAM INJ 2 MG/1 ML VIAL IV PRN (18:19)
[2017-10-07] MEDS ORDERED: PIPERACILLIN/TAZOBACTAM 3.375 GM VIAL IV SCH (22:00)
[2017-10-08 02:17] VITALS: BP 120/84
== END 2017-10-08 02:15 | disposition short-term general hospital (02) ==
LOC: ER 10:55
DX: R74.0 Nonspecific elevation of levels of transaminase and lactic acid dehydrogenase [LDH] (principal); E87.6 Hypokalemia; K86.3 Pseudocyst of pancreas; R11.2 Nausea with vomiting, unspecified; R10.13 Epigastric pain; F41.9 Anxiety disorder, unspecified; R00.0 Tachycardia, unspecified
CPT/HCPCS: 93005; 96376; 99285; 96361; 96375; 96365; 96367; 86900; 86901; 36415; 87040; 87086; 86850; 80307; 83690; 84703; 85025; 85610; 81025; 80053; 81001; 82803; 83605; 71045; 74177; 93010; S0119; J3010; J2765; J2060; J3480; J7030; J7120; J0696; J2543

== ENCOUNTER 2018-08-25 16:54 | Inpatient (IN) | payer SELFPAY ==
[2018-08-25 17:42] LABS: ABSOLUTE LYMPHOCYTES (AUTO) 0.4 10^3/uL (0.5-4.7); ABSOLUTE MONOCYTES (AUTO) 0.6 10^3/uL (0.1-1.4); ABSOLUTE NEUT (AUTO) 5.4 10^3/uL (1.7-8.2); BASOPHILS % (AUTO) 0.3 % (0-2); MEAN CORPUSCULAR HEMOGLOBIN 31.3 pg (27.0-33.4); MEAN CORPUSCULAR HGB CONC 34.1 g/dL (32.0-36.0); MEAN CORPUSCULAR VOLUME 92 fl (80-97); MONOCYTES % (AUTO) 8.8 % (3-13); PLATELET COUNT 147 10^3/uL (150-450); RED BLOOD COUNT 4.47 10^6/uL (3.72-5.28); RED CELL DISTRIBUTION WIDTH 16.4 % (11.5-14.0); SEGMENTED NEUTROPHILS % (AUTO) 84.9 % (42-78); TOTAL CELLS COUNTED % (AUTO) 100 %; WHITE BLOOD COUNT 6.3 10^3/uL (4.0-10.5)
[2018-08-25] MEDS ORDERED: DIAZEPAM INJ 10 MG/2 ML DISP.SYRIN IV ONE ×2 (17:46→19:35)
[2018-08-25] MEDS ORDERED: NORMAL SALINE 1000 ML 1,000 ML IV ONE (17:54)
[2018-08-25 18:08] LABS: ALANINE AMINOTRANSFERASE 178 U/L (9-52); ALBUMIN 4.2 g/dL (3.5-5.0); ALKALINE PHOSPHATASE 168 U/L (38-126); ASPARTATE AMINO TRANSFERASE 621 U/L (14-36); BILIRUBIN,DIRECT 2.3 mg/dL (0.0-0.4); BILIRUBIN,TOTAL 4.2 mg/dL (0.2-1.3); BLOOD UREA NITROGEN 5 mg/dL (7-20); CALCIUM 9.6 mg/dL (8.4-10.2); GLUCOSE 177 mg/dL (75-110); POTASSIUM 3.4 mmol/L (3.6-5.0); TOTAL PROTEIN 6.8 g/dL (6.3-8.2)
[2018-08-25 18:10] LABS: ALCOHOL < 10 mg/dL (NONE DETECTED)
[2018-08-25 18:15] LABS: ANION GAP 22 (5-19); CARBON DIOXIDE 26 mmol/L (22-30); CHLORIDE 86 mmol/L (98-107); SODIUM 133.8 mmol/L (137-145)
--- NOTE | 2018-08-25 18:18 | ER Document Report ---
ED General - General Chief Complaint: Seizure Stated Complaint: POSSIBLE SEIZURE Time Seen by Provider: 08/25/18 17:16 Notes: Patient is a 27-year-old female with history of alcoholism that presents to the emergency department for chief complaint of nausea, vomiting abdominal pain and seizure. Patient apparently had a seizure at home last a few minutes that was witnessed by her parents. She also has been complaining of nausea, vomiting ri ght upper quadrant abdominal pain over the past several days, and her last drink was 2 days ago. She usually drinks over 1/5 of liquor daily. She has never had a withdrawal seizure in the past, she states she is been having the shakes and feeling nauseous, but denies having severe alcohol withdrawal in the past. She has had a mild headache associated with this. But she is more concerned about her abdominal pain which she currently rates as a 6 out of 10 is a constant ache. She does have a history of alcoholic pancreatitis as well. Past Medical History: Depression, anxiety, alcoholism, chronic pancreatitis Past Surgical History: Tonsillectomy, hand surgery Social History: Admits to smoking cigarettes, and drinking alcohol on a daily basis, denies illicit drug use. Family History: Reviewed and noncontributory for presenting illness Allergies: Reviewed, see documented allergy list. REVIEW OF SYSTEMS: Other than noted above, the 12 point review of systems was reviewed with the patient and were negative, all pertinent findings are included in the HPI. PHYSICAL EXAMINATION: Vital signs reviewed, nursing noted reviewed. GENERAL: Patient appears uncomfortable on exam HEAD: Atraumatic, normocephalic. EYES: Eyes appear normal, extraocular movements intact, sclera anicteric, c onjunctiva are normal. ENT: nares patent, oropharynx clear without exudates. Moist mucous membranes. NECK: Normal range of motion, supple without lymphadenopathy LUNGS: Breath sounds clear to auscultation bilaterally and equal. No wheezes rales or rhonchi. HEART: Heart rate tachycardic, regular rhythm ABDOMEN: Soft, right upper quadrant tenderness to palpation, normoactive bowel sounds. No rebound, guarding, or rigidity. No masses appreciated. EXTREMITIES: Nontender, good range of motion, no pitting or edema. NEUROLOGICAL: No focal neurological deficits. Moves all extremities spont aneously Motor and sensory grossly intact on exam, mild resting tremor, alert and oriented x4. PSYCH: Normal mood, normal affect. SKIN: Warm, Dry, normal turgor, no rashes or lesions noted on exposed skin TRAVEL OUTSIDE OF THE [place] IN LAST 30 DAYS: No - Related Data Allergies/Adverse Reactions: No Known Allergies Allergy (Verified 10/07/17 11:03) Past Medical History - Social History Smoking Status: Unknown if Ever Smoked Family History: Hypertension, Other - Alcohol dependence, depression Patient has suicidal ideation: No Patient has homicidal ideation: No Neurological Medical History: Reports: Hx Migraine Renal/ Medical History: Denies: Hx Peritoneal Dialysis GI Medical History: Reports: Hx Hepatitis - Alcoholic pancreatitis Psychiatric Medical History: Reports: Hx Attention Deficit Hyperactivity Disorder, Hx Depression Infectious Medical History: Reports: Hx Hepatitis - Alcoholic pancreatitis Past Surgical History: Reports: Hx Tonsillectomy Physical Exam - Vital signs Vitals: Temp Pulse BP Pulse Ox 98.4 F 91 118/81 89 L 08/25/18 17:01 08/25/18 17:01 08/25/18 17:01 08/25/18 17:01 Course - Re-evaluation Re-evalutation: Patient seen and examined vital signs reviewed. Laboratory data and imaging were ordered as appropriate for the patient's presenting symptoms and complaint, with consideration of any critical or life threatening conditions that may be associated with their obtained history and exam as noted above. Patient was treated with IV fluids, IV Valium for withdrawal symptoms, initially she was given Zofran, however her EKG demonstrated prolonged QTC, therefore antibiotics were discontinued at that point. Results were reviewed when available and demonstrated markedly elevated LFTs, and elevated bilirubin at greater than 4, her INR that was 1.1, and she did have a mild anion gap, suggestive of acute alcoholic hepatitis, and alcoholic ketoacidosis, she did have a relatively low magnesium at 1.5, which she was given IV magnesium for, as she did have a prolonged QTC. The patient was re-evaluated and was improved after treatment Evaluation was most consistent with acute alcoholic hepatitis, her maddrey discriminant function score count was actually low and there is no indication for steroids at this point. Results were discussed with the patient at this point after careful consideration I feel that that patient should be admitted to the hospital. This was discussed with the patient that it is in the best interest for their care to be admitted for further evaluation and management. Patient agreed with this plan of care. A call was placed to the admitted physician, Dr. Augustin who graciously accepted the patient onto their service. *Note is created using voice recognition software and may contain spelling, syntax or grammatical errors. Laboratory 08/25/18 08/25/18 08/25/18 17:22 17:30 17:30 WBC 6.3 RBC 4.47 Hgb 14.0 Hct 41.0 MCV 92 MCH 31.3 MCHC 34.1 RDW 16.4 H Plt Count 147 L Seg Neutrophils % 84.9 H Lymphocytes % 6.0 L Monocytes % 8.8 Eosinophils % 0.0 Basophils % 0.3 Absolute Neutrophils 5.4 Absolute Lymphocytes 0.4 L Absolute Monocytes 0.6 Absolute Eosinophils 0.0 Absolute Basophils 0.0 PT INR Sodium 133.8 L Potassium 3.4 L Chloride 86 L Carbon Dioxide 26 Anion Gap 22 H BUN 5 L Creatinine 0.68 Est GFR ( Amer) > 60 Est GFR (Non-Af Amer) > 60 Glucose 177 H POC Glucose 192 H Hemoglobin A1c % Calcium 9.6 Magnesium 1.5 L Total Bilirubin 4.2 H Direct Bilirubin 2.3 H Neonat Total Bilirubin Not Reportable Neonat Direct Bilirubin Not Reportable Neonat Indirect Bili Not Reportable AST 621 H ALT 178 H Alkaline Phosphatase 168 H Total Protein 6.8 Albumin 4.2 Lipase Serum HCG, Qual Urine Color Urine Appearance Urine pH Ur Specific [place] Urine Protein Urine Glucose (UA) Urine Ketones Urine Blood Urine Nitrite Urine Bilirubin Urine Urobilinogen Ur Leukocyte Esterase Urine WBC (Auto) Urine RBC (Auto) U Hyaline Cast (Auto) Urine Bacteria (Auto) Squamous Epi Cells Auto Urine Mucus (Auto) Urine Ascorbic Acid Urine Opiates Screen Urine Methadone Screen Ur Barbiturates Screen Ur Phencyclidine Scrn Ur Amphetamines Screen U Benzodiazepines Scrn Urine Cocaine Screen U Marijuana (THC) Screen Serum Alcohol < 10 08/25/18 08/25/18 08/25/18 17:30 17:30 17:30 WBC RBC Hgb Hct MCV MCH MCHC RDW Plt Count Seg Neutrophils % Lymphocytes % Monocytes % Eosinophils % Basophils % Absolute Neutrophils Absolute Lymphocytes Absolute Monocytes Absolute Eosinophils Absolute Basophils PT 15.1 INR 1.13 Sodium Potassium Chloride Carbon Dioxide Anion Gap BUN Creatinine Est GFR ( Amer) Est GFR (Non-Af Amer) Glucose POC Glucose Hemoglobin A1c % 6.2 H Calcium Magnesium Total Bilirubin Direct Bilirubin Neonat Total Bilirubin Neonat Direct Bilirubin Neonat Indirect Bili AST ALT Alkaline Phosphatase Total Protein Albumin Lipase 44.2 Serum HCG, Qual Urine Color Urine Appearance Urine pH Ur Specific [place] Urine Protein Urine Glucose (UA) Urine Ketones Urine Blood Urine Nitrite Urine Bilirubin Urine Urobilinogen Ur Leukocyte Esterase Urine WBC (Auto) Urine RBC (Auto) U Hyaline Cast (Auto) Urine Bacteria (Auto) Squamous Epi Cells Auto Urine Mucus (Auto) Urine Ascorbic Acid Urine Opiates Screen Urine Methadone Screen Ur Barbiturates Screen Ur Phencyclidine Scrn Ur Amphetamines Screen U Benzodiazepines Scrn Urine Cocaine Screen U Marijuana (THC) Screen Serum Alcohol 08/25/18 08/25/18 08/25/18 17:30 19:30 19:30 WBC RBC Hgb Hct MCV MCH MCHC RDW Plt Count Seg Neutrophils % Lymphocytes % Monocytes % Eosinophils % Basophils % Absolute Neutrophils Absolute Lymphocytes Absolute Monocytes Absolute Eosinophils Absolute Basophils PT INR Sodium Potassium Chloride Carbon Dioxide Anion Gap BUN Creatinine Est GFR ( Amer) Est GFR (Non-Af Amer) Glucose POC Glucose Hemoglobin A1c % Calcium Magnesium Total Bilirubin Direct Bilirubin Neonat Total Bilirubin Neonat Direct Bilirubin Neonat Indirect Bili AST ALT Alkaline Phosphatase Total Protein Albumin Lipase Serum HCG, Qual NEGATIVE Urine Color [place] Urine Appearance CLOUDY Urine pH 6.0 Ur Specific [place] 1.013 Urine Protein 30 H Urine Glucose (UA) NEGATIVE Urine Ketones 20 H Urine Blood SMALL H Urine Nitrite NEGATIVE Urine Bilirubin NEGATIVE Urine Urobilinogen 4.0 H Ur Leukocyte Esterase SMALL H Urine WBC (Auto) 33 Urine RBC (Auto) 3 U Hyaline Cast (Auto) 7 Urine Bacteria (Auto) 3+ Squamous Epi Cells Auto 11 Urine Mucus (Auto) MANY Urine Ascorbic Acid NEGATIVE Urine Opiates Screen NEGATIVE Urine Methadone Screen NEGATIVE Ur Barbiturates Screen NEGATIVE Ur Phencyclidine Scrn NEGATIVE Ur Amphetamines Screen NEGATIVE U Benzodiazepines Scrn NEGATIVE Urine Cocaine Screen NEGATIVE U Marijuana (THC) Screen UNCONFIRMED POSITIVE Serum Alcohol - Vital Signs Vital signs: Temp Pulse Resp BP Pulse Ox 98.5 F 91 118/81 89 L 08/25/18 17:37 08/25/18 17:01 08/25/18 17:01 08/25/18 17:01 - Laboratory Result Diagrams: 08/25/18 17:30 08/25/18 17:30 Laboratory results interpreted by me: 08/25/18 08/25/18 08/25/18 17:22 17:30 17:30 RDW 16.4 H Plt Count 147 L Seg Neutrophils % 84.9 H Lymphocytes % 6.0 L Absolute Lymphocytes 0.4 L Sodium 133.8 L Potassium 3.4 L Chloride 86 L Anion Gap 22 H BUN 5 L Glucose 177 H POC Glucose 192 H Hemoglobin A1c % Magnesium 1.5 L Total Bilirubin 4.2 H Direct Bilirubin 2.3 H AST 621 H ALT 178 H Alkaline Phosphatase 168 H Urine Protein Urine Ketones Urine Blood Urine Urobilinogen Ur Leukocyte Esterase 08/25/18 08/25/18 17:30 19:30 RDW Plt Count Seg Neutrophils % Lymphocytes % Absolute Lymphocytes Sodium Potassium Chloride Anion Gap BUN Glucose POC Glucose Hemoglobin A1c % 6.2 H Magnesium Total Bilirubin Direct Bilirubin AST ALT Alkaline Phosphatase Urine Protein 30 H Urine Ketones 20 H Urine Blood SMALL H Urine Urobilinogen 4.0 H Ur Leukocyte Esterase SMALL H - EKG Interpretation by Me Additional EKG results interpreted by me: EKG demonstrates sinus rhythm with a ventricular rate of 69 bpm, normal axis, QTC prolonged at 553 ms, no evidence of acute ischemia this is compared to prior EKG from 10/07/2017, where at that time the patient was tachycardic. Critical Care Note - Critical Care Note Total time excluding time spent on procedures (mins): 38 Comments: Critical care time 38 minutes exclusive from separate billable procedures for a patient requiring complex medical decision making, and high potential for clini stephanie deterioration. In a patient with acute alcoholic hepatitis, and prolonged QTC requiring IV magnesium treatment. Time spent obtaining history from patient or surrogate, discussions with consultants, development of treatment plan with patient or surrogate, evaluation of patient's response to treatment, examination of patient, ordering and performing treatments and interventions, ordering and review of laboratory studies, re-evaluation of patient's condition, ordering and review of radiographic studies and review of old charts Discharge - Discharge Clinical Impression: Acute alcoholic hepatitis, Alcoholic ketoacidosis, Hypomagnesemia Alcohol withdrawal seizure Qualifiers: Complication of substance-induced condition: uncomplicated Qualified Code(s): F10.230 - Alcohol dependence with withdrawal, uncomplicated Alcohol withdrawal Qualifiers: Complication of substance-induced condition: with delirium Qualified Code(s): F10.231 - Alcohol dependence with withdrawal delirium Condition: Stable Disposition: ADMITTED INPATIENT Admitting Provider: Demetria (Hospitalist) Unit Admitted: Medical Floor
[2018-08-25 19:15] LABS: INTERNATIONAL RATION (INR) 1.13; PROTHROMBIN TIME 15.1 SEC (11.4-15.4)
[2018-08-25] MEDS: MAGNESIUM SULFATE/D5W 1 GM/100 ML RTUPB IV SCH ×2 (19:52→22:04)
[2018-08-25 19:53] LABS: APPEARANCE,URINE CLOUDY; BILIRUBIN,URINE NEGATIVE (NEGATIVE); COLOR,URINE AMBER; GLUCOSE, URINE NEGATIVE (NEGATIVE); KETONES,URINE 20 mg/dL (NEGATIVE); LEUKOCYTE ESTERASE,URINE SMALL (NEGATIVE); NITRITE,URINE NEGATIVE (NEGATIVE); PROTEIN,URINE 30 mg/dL (NEGATIVE); URINE SPECIFIC GRAVITY 1.013
[2018-08-25 20:05] LABS: URINE AMPHETAMINES SCREEN NEGATIVE; URINE BARBITURATES SCREEN NEGATIVE; URINE BENZODIAZEPINES SCREEN NEGATIVE; URINE COCAINE SCREEN NEGATIVE; URINE MARIJUANA (THC) SCREEN UNCONFIRMED POSITIVE; URINE METHADONE SCREEN NEGATIVE; URINE PHENCYCLIDINE SCREEN NEGATIVE
[2018-08-25] MEDS ORDERED: ZOLPIDEM TARTRATE 5 MG TABLET PO PRN (20:25)
[2018-08-25] MEDS ORDERED: ONDANSETRON 4 MG TAB.RAPDIS PO PRN (20:25)
[2018-08-25] MEDS ORDERED: MAG HYDROX/AL HYDROX/SIMETH SUSP 30 ML UDCUP PO PRN (20:25)
[2018-08-25] MEDS ORDERED: MAGNESIUM HYDROXIDE SUSP 30 ML UDCUP PO PRN (20:25)
[2018-08-25] MEDS ORDERED: ACETAMINOPHEN 325 MG TABLET PO PRN (20:32)
[2018-08-25] MEDS ORDERED: ACETAMINOPHEN 650 MG SUPP.RECT PR PRN (20:32)
[2018-08-25] MEDS ORDERED: NICOTINE 21 MG/24 HR PATCH.TD24 TD PRN (20:32)
[2018-08-25] MEDS: NALBUPHINE HCL INJ 10 MG/1 ML AMPULE IV PRN (22:01)
[2018-08-25] MEDS: FAMOTIDINE 20 MG TABLET PO SCH (22:02)
[2018-08-25] MEDS: ENOXAPARIN SODIUM INJ 40 MG/0.4 ML DISP.SYRIN SUBCUT SCH (22:03)
[2018-08-25] MEDS: METOCLOPRAMIDE HCL 10 MG TABLET PO SCH (22:03)
[2018-08-25] MEDS: DIAZEPAM INJ 10 MG/2 ML DISP.SYRIN IV PRN ×2 (22:09→23:53)
[2018-08-25] MEDS: SUCRALFATE 1 GM TABLET PO SCH (22:23)
--- NOTE | 2018-08-25 23:08 | EKG REPORT ---
SEVERITY:- ABNORMAL ECG - SINUS RHYTHM PROLONGED QT INTERVAL : Confirmed by: Liz Cespedes 25-Aug-2018 23:07:37
[2018-08-25] MEDS: RINGERS SOLUTION,LACTATED 1,000 ML IV PRN (23:25)
[2018-08-25 23:38] LABS: INTERNATIONAL RATION (INR) 1.19; PROTHROMBIN TIME 15.7 SEC (11.4-15.4)
[2018-08-25] MEDS: ONDANSETRON HCL INJ/PF 4 MG/2 ML SDV IV PRN (23:46)
[2018-08-26] MEDS: DIAZEPAM 5 MG TABLET PO SCH ×4 (00:19→21:17)
[2018-08-26] MEDS: NALBUPHINE HCL INJ 10 MG/1 ML AMPULE IV PRN ×3 (01:03→08:34)
[2018-08-26] MEDS: DIAZEPAM INJ 10 MG/2 ML DISP.SYRIN IV PRN ×4 (03:56→19:26)
--- NOTE | 2018-08-26 04:21 | PDOC H&P ---
History of Present Illness Admission Date/PCP: 08/25/18 19:39 SYLVIA PAK MD Patient complains of: Seizure History of Present Illness: DAVONTE ANTONY is a 27 year old female who presented to the emergency room with an acute seizure at home. Patient admits that she is an alcoholic and has a history of chronic pancreatitis which led her to stop drinking 2 days ago because she had been experiencing generalized malaise, decreased appetite, mild epigastric/right upper quadrant pain, nausea and vomiting. This afternoon while at home she experienced a seizure witnessed by her parents lasting for 1 to 2 minutes and resulting in her biting her lips during the generalized tonic-clonic seizure activity and a short period of mild post ictal confusion. She denies prior seizures and has not identified any aggravating or ameliorating factors for her seizure activity other than her recent alcohol cessation. She views this is a severe withdrawal episode, causing her to seek medical help. In the emergency room she was found to have a bilirubin of 4.2 with an AST of 621 and ALT of 178. She was subsequently admitted to the hospital for further evaluation and treatment. Past Medical History Cardiac Medical History: Denies: Atrial Fibrillation, Coronary Artery Disease, DVT, Hyperlipidema, Hypertension, Pulmonary Embolism Pulmonary Medical History: Denies: Asthma, Chronic Obstructive Pulmonary Disease (COPD) EENT Medical History: Reports: Throat - Tonsillitis as a child with tonsill ectomy performed Denies: Cataracts Neurological Medical History: Reports: Migraine Denies: Hemorrhagic CVA, Ischemic CVA, Multiple Sclerosis, Seizures Endocrine Medical History: Denies: Diabetes Mellitus Type 1, Diabetes Mellitus Type 2, Hyperthyroidism, Hypothyroidism Renal/ Medical History: Denies: Chronic Kidney Disease, Nephrolithiasis Malignancy Medical History: Reports: None GI Medical History: Reports: Hepatitis - Prior liver enzyme elevations with exacerbations of chronic pancreatitis, Other - Chronic alcoholic pancreatitis Denies: Cirrhosis, Crohn's Disease, Ulcerative Colitis Musculoskeltal Medical History: Denies: Arthritis, Gout Skin Medical History: Denies: Eczema, Psoriasis Psychiatric Medical History: Reports: Alcohol Dependency, Attention Deficit Hyperactivity Disorder, Depression - Past history of suicidal ideation and self cutting Denies: Substance Abuse, Tobacco Dependency Traumatic Medical History: Reports: None Hematology: Denies: Anemia, Bleeding Tendencies Infectious Medical History: Reports: None Past Surgical History Past Surgical History: Reports: Tonsillectomy Social History Information Source: Patient Lives with: Family Smoking Status: Never Smoker Frequency of Alcohol Use: Heavy - 750 mL vodka every 48 hours Hx Recreational Drug Use: No Drugs: None Hx Prescription Drug Abuse: No - Advance Directive Resuscitation Status: Full Code Surrogate healthcare decision maker:: Mother Family History Family History: Hypertension, Other - Alcohol dependence, depression Parental Family History Reviewed: Yes Children Family History Reviewed: No Sibling(s) Family History Reviewed.: Yes Medication/Allergy Home Medications: Citalopram Hydrobromide [Citalopram HBr] 30 mg PO DAILY 08/25/18 Ondansetron HCl [Zofran 4 mg Tablet] 4 mg PO Q8HP PRN 08/25/18 Allergies/Adverse Reactions: No Known Allergies Allergy (Verified 10/07/17 11:03) Review of Systems Constitutional: PRESENT: as per HPI, anorexia, other - Malaise. ABSENT: chills, fever(s) Eyes: ABSENT: visual disturbances, other - Eye pain Ears: ABSENT: hearing changes, other - Ear pain Nose, Mouth, and Throat: ABSENT: mouth pain, sore throat Cardiovascular: ABSENT: chest pain, palpitations Respiratory: ABSENT: cough, dyspnea Gastrointestinal: PRESENT: as per HPI, abdominal pain, nausea, vomiting. ABSENT: constipation, diarrhea, hematemesis Genitourinary: ABSENT: dysuria, hematuria Musculoskeletal: ABSENT: back pain, joint swelling, muscle weakness Integumentary: ABSENT: pruritus, rash Neurological: PRESENT: as per HPI, confusion, convulsions. ABSENT: focal weakness, memory loss, syncope Psychiatric: ABSENT: anxiety, depression Endocrine: ABSENT: cold intolerance, heat intolerance Hematologic/Lymphatic: ABSENT: easy bleeding, easy bruising Physical Exam Vital Signs: Temp Pulse Resp BP Pulse Ox 98.5 F 91 118/81 89 L 08/25/18 17:37 08/25/18 17:01 08/25/18 17:01 08/25/18 17:01 General appearance: PRESENT: no acute distress, cooperative, obese Head exam: PRESENT: atraumatic, normocephalic Eye exam: PRESENT: scleral icterus. ABSENT: conjunctival injection, nystagmus Ear exam: PRESENT: normal external ear exam. ABSENT: bleeding, drainage Mouth exam: PRESENT: dry mucosa, neck supple, other - Small superficial contusion with minimal abrasion of right lower oral labia noted near lip piercing Neck exam: ABSENT: thyromegaly, tracheal deviation Respiratory exam: PRESENT: clear to auscultation vane, symmetrical, unlabored Cardiovascular exam: PRESENT: RRR. ABSENT: clicks, gallop, rubs Pulses: PRESENT: normal radial pulses, normal dorsalis pedis pul Vascular exam: PRESENT: normal capillary refill. ABSENT: pallor GI/Abdominal exam: PRESENT: normal bowel sounds, organolmegaly - Mild hepatomegaly with the liver edge palpable below the right costal margin, soft, tenderness - Mild right upper quadrant tenderness to palpation Rectal exam: PRESENT: deferred Extremities exam: ABSENT: joint swelling, pedal edema Musculoskeletal exam: PRESENT: full ROM, normal inspection Neurological exam: PRESENT: alert, oriented to person, oriented to place, oriented to time, oriented to situation, CN II-XII grossly intact. ABSENT: motor sensory deficit Psychiatric exam: PRESENT: appropriate affect, normal mood Skin exam: PRESENT: dry, intact, jaundice - Generalized mild to moderate, warm. ABSENT: rash, urticaria Results Laboratory Results: 08/25/18 17:30 08/25/18 17:30 08/25/18 08/25/18 08/25/18 17:30 17:30 17:30 WBC 6.3 RBC 4.47 Hgb 14.0 Hct 41.0 MCV 92 MCH 31.3 MCHC 34.1 RDW 16.4 H Plt Count 147 L Seg Neutrophils % 84.9 H Lymphocytes % 6.0 L Monocytes % 8.8 Eosinophils % 0.0 Basophils % 0.3 Absolute Neutrophils 5.4 Absolute Lymphocytes 0.4 L Absolute Monocytes 0.6 Absolute Eosinophils 0.0 Absolute Basophils 0.0 Sodium 133.8 L Potassium 3.4 L Chloride 86 L Carbon Dioxide 26 Anion Gap 22 H BUN 5 L Creatinine 0.68 Est GFR ( Amer) > 60 Est GFR (Non-Af Amer) > 60 Glucose 177 H Calcium 9.6 Magnesium 1.5 L Total Bilirubin 4.2 H AST 621 H ALT 178 H Alkaline Phosphatase 168 H Total Protein 6.8 Albumin 4.2 Lipase 44.2 Assessment and Plan - Diagnosis (1) Seizure due to alcohol withdrawal Qualifiers: Complication of substance-induced condition: uncomplicated Qualified Code(s): F10.230 - Alcohol dependence with withdrawal, uncomplicated Is this a current diagnosis for this admission?: Yes Plan: Patient will be observed closely on the medical floor. She will receive Valium 10 mg IV q. one hour as needed for seizure activity or other severe withdrawal activities such as tremor or hallucinations. (2) Alcohol withdrawal Qualifiers: Complication of substance-induced condition: with delirium Qualified Code(s): F10.231 - Alcohol dependence with withdrawal delirium Is this a current diagnosis for this admission?: Yes Plan: Patient will be monitored closely. She will receive oral Valium on a scheduled alcohol withdrawal protocol. Valium 10 mg IV nightly hour as needed for severe withdrawal activity will also be available for treatment if needed. (3) Acute alcoholic hepatitis Is this a current diagnosis for this admission?: Yes Plan: Patient will be admitted for supportive and symptomatic care utilizing IV fluids and electrolyte replacement as appropriate. Daily CBC and metabolic profile evaluations will be obtained to monitor her status. (4) Hypomagnesemia Is this a current diagnosis for this admission?: Yes Plan: Patient was given magnesium supplementation in the emergency room. Patient's magnesium will be followed on a daily basis for reassessment. (5) Chronic alcoholic pancreatitis Is this a current diagnosis for this admission?: Yes Plan: Patient will be observed for any evidence of pancreatitis throughout her hospital course. Daily CBC and metabolic profile evaluations will be obtained to monitor her status. (6) Primary dysthymia early onset Is this a current diagnosis for this admission?: Yes Plan: Patient will be continued on her current medication of citalopram 30 mg p.o. daily. She will be observed for any significant changes in her mood during her hospital course. - Time Time Spent with patient: 25-34 minutes Anticipated discharge: Home - Inpatient Certification Based on my medical assessment, after consideration of the patient's comorbidities, presenting symptoms, or acuity I expect that the services needed warrant INPATIENT care.: Yes I certify that my determination is in accordance with my understanding of Medicare's requirements for reasonable and necessary INPATIENT services [42 CFR 412.3e].: Yes Medical Necessity: Need Close Monitoring Due to Risk of Patient Decompensation, Risk of Complication if Not Cared For in Hospital
[2018-08-26 06:55] LABS: INTERNATIONAL RATION (INR) 1.13; PROTHROMBIN TIME 15.1 SEC (11.4-15.4)
[2018-08-26 06:56] LABS: HEMATOCRIT 40.3 % (36.0-47.0); HEMOGLOBIN 13.6 g/dL (12.0-15.5); MEAN CORPUSCULAR HEMOGLOBIN 31.2 pg (27.0-33.4); MEAN CORPUSCULAR HGB CONC 33.8 g/dL (32.0-36.0); MEAN CORPUSCULAR VOLUME 92 fl (80-97); RED BLOOD COUNT 4.36 10^6/uL (3.72-5.28); RED CELL DISTRIBUTION WIDTH 16.8 % (11.5-14.0); WHITE BLOOD COUNT 5.6 10^3/uL (4.0-10.5)
[2018-08-26 07:32] LABS: PLATELET COUNT 90 10^3/uL (150-450)
[2018-08-26 07:35] LABS: ALANINE AMINOTRANSFERASE 159 U/L (9-52); ALBUMIN 3.9 g/dL (3.5-5.0); ALKALINE PHOSPHATASE 144 U/L (38-126); AMYLASE 52 U/L (30-110); ANION GAP 14 (5-19); ASPARTATE AMINO TRANSFERASE 446 U/L (14-36); BILIRUBIN,DIRECT 1.3 mg/dL (0.0-0.4); BILIRUBIN,TOTAL 2.8 mg/dL (0.2-1.3); BLOOD UREA NITROGEN 5 mg/dL (7-20); CALCIUM 8.9 mg/dL (8.4-10.2); CARBON DIOXIDE 30 mmol/L (22-30); CHLORIDE 94 mmol/L (98-107); CHOLESTEROL 154.43 mg/dL (0-200); GLUCOSE 125 mg/dL (75-110); SODIUM 138.1 mmol/L (137-145); TOTAL PROTEIN 6.3 g/dL (6.3-8.2); TRIGLYCERIDES 101 mg/dL (<150)
[2018-08-26 07:47] LABS: DIRECT LDL 80 mg/dL (<100)
[2018-08-26 08:06] LABS: POTASSIUM 2.5 mmol/L (3.6-5.0)
[2018-08-26 08:26] LABS: FREE T3 4.24 pg/mL (2.77-5.27); FREE T4 (FREE THYROXINE) 1.17 ng/dL (0.78-2.19)
[2018-08-26] MEDS: FAMOTIDINE 20 MG TABLET PO SCH ×4 (08:34→21:18)
[2018-08-26] MEDS: SUCRALFATE 1 GM TABLET PO SCH ×4 (08:34→21:18)
[2018-08-26 08:40] LABS: THYROID STIMULATING HORMONE 4.37 uIU/mL (0.47-4.68)
[2018-08-26] MEDS ORDERED: POTASSIUM CHLORIDE 10 MEQ CAPSULE.ER PO ONE (08:42)
[2018-08-26] MEDS: DOCUSATE SODIUM 100 MG CAPSULE PO SCH ×2 (09:19→17:28)
[2018-08-26] MEDS: CITALOPRAM HYDROBROMIDE 20 MG TABLET PO SCH (09:19)
[2018-08-26] MEDS: METOCLOPRAMIDE HCL 10 MG TABLET PO SCH ×4 (09:19→21:18)
[2018-08-26] MEDS: POTASSI CL 20 MEQ/50 ML RIDER 20 MEQ/50 ML RTUPB IV SCH ×2 (09:21→11:25)
[2018-08-26] MEDS: ENOXAPARIN SODIUM INJ 40 MG/0.4 ML DISP.SYRIN SUBCUT SCH (09:23)
[2018-08-26] MEDS: ONDANSETRON HCL INJ/PF 4 MG/2 ML SDV IV PRN ×2 (10:51→19:26)
[2018-08-26] MEDS ORDERED: PROMETHAZINE HCL INJ 25 MG/1 ML VIAL IV PRN (11:33)
[2018-08-26] MEDS: MORPHINE SULFATE 10 MG/ML INJ IV PRN ×2 (14:38→19:27)
[2018-08-26] MEDS: RINGERS SOLUTION,LACTATED 1,000 ML IV PRN (15:37)
--- NOTE | 2018-08-26 22:01 | PDOC PROGRESS REPORT ---
Subjective Progress Note for:: 08/26/18 Subjective:: DAVONTE ANTONY is a 27 year old female with a history of ETOH use and pancreatitis presented to the emergency room following a seizure at home. Admitted to hospitalist service for ETOH withdrawal and seizures. Patient seen this morning on rounds, complains of abdominal pain and neausea. Noted to be dry heaving during the interview. Reason For Visit: ACUTE ALCOHOL WITHDRAWAL,ACUTE ALCOHOLIC HEPATITIS Physical Exam Vital Signs: Temp Pulse Resp BP Pulse Ox 98.0 F 56 L 16 115/74 90 L 08/26/18 20:09 08/26/18 20:09 08/26/18 20:09 08/26/18 20:09 08/26/18 20:09 Intake & Output 08/25/18 08/26/18 08/27/18 06:59 06:59 06:59 Intake Total 1200 1340 Output Total 200 Balance 1200 1140 Weight 76.3 kg General appearance: PRESENT: morbidly obese Eye exam: PRESENT: conjunctiva pink, PERRLA Ear exam: PRESENT: normal external ear exam Mouth exam: PRESENT: moist Neck exam: PRESENT: full ROM Respiratory exam: PRESENT: clear to auscultation vane, symmetrical, unlabored Cardiovascular exam: PRESENT: RRR Pulses: PRESENT: normal radial pulses, normal dorsalis pedis pul Vascular exam: PRESENT: normal capillary refill GI/Abdominal exam: PRESENT: distended, normal bowel sounds, soft, tenderness Rectal exam: PRESENT: deferred Extremities exam: PRESENT: full ROM Musculoskeletal exam: PRESENT: ambulatory, full ROM Neurological exam: PRESENT: alert, awake, oriented to person, oriented to place, oriented to time, oriented to situation Psychiatric exam: PRESENT: appropriate affect Skin exam: PRESENT: dry, intact, normal color Results Laboratory Results: 08/26/18 05:30 08/26/18 05:30 08/26/18 08/26/18 08/26/18 05:30 05:30 05:30 WBC 5.6 RBC 4.36 Hgb 13.6 Hct 40.3 MCV 92 MCH 31.2 MCHC 33.8 RDW 16.8 H Plt Count 90 L Sodium 138.1 Potassium 2.5 L* Chloride 94 L Carbon Dioxide 30 Anion Gap 14 BUN 5 L Creatinine 0.63 Est GFR ( Amer) > 60 Est GFR (Non-Af Amer) > 60 Glucose 125 H Calcium 8.9 Magnesium 2.5 H D Total Bilirubin 2.8 H AST 446 H ALT 159 H Alkaline Phosphatase 144 H Total Protein 6.3 Albumin 3.9 Triglycerides 101 Cholesterol 154.43 LDL Cholesterol Direct 80 VLDL Cholesterol 20.0 HDL Cholesterol 66 Amylase 52 TSH 4.37 Free T4 1.17 Free T3 pg/mL 4.24 Status: Imported from PACS Assessment and Plan - Diagnosis (1) Seizure due to alcohol withdrawal Qualifiers: Complication of substance-induced condition: uncomplicated Qualified Code(s): F10.230 - Alcohol dependence with withdrawal, uncomplicated Is this a current diagnosis for this admission?: Yes Plan: Secondary to no abrupt cessation of ETOH use Valium 10 mg IV q. one hour as needed for seizure activity or other withdrawal symptoms daily thiamine and folate seizure precautions (2) Abdominal pain Is this a current diagnosis for this admission?: Yes Plan: secondary to pancreatitis PRN morphine IV avoid tylenol or medications that contain tylenol (3) Acute alcoholic hepatitis Is this a current diagnosis for this admission?: Yes Plan: Patient will be admitted for supportive and symptomatic care utilizing IV fluids and electrolyte replacement as appropriate. Daily CBC and metabolic profile evaluations will be obtained to monitor her status. (4) Alcohol withdrawal Qualifiers: Complication of substance-induced condition: with delirium Qualified Code(s): F10.231 - Alcohol dependence with withdrawal delirium Is this a current diagnosis for this admission?: Yes Plan: as above (5) Chronic alcoholic pancreatitis Is this a current diagnosis for this admission?: Yes Plan: clear liquid diet for now until patient is able to tolerate PO intake Continue maintenance IVF - Time Time Spent with patient: 15-24 minutes Medications reviewed and adjusted accordingly: Yes Anticipated discharge: Home - Inpatient Certification Based on my medical assessment, after consideration of the patient's comorbidities, presenting symptoms, or acuity I expect that the services needed warrant INPATIENT care.: Yes I certify that my determination is in accordance with my understanding of Medicare's requirements for reasonable and necessary INPATIENT services [42 CFR 412.3e].: Yes Medical Necessity: Risk of Complication if Not Cared For in Hospital
[2018-08-26] MEDS: THIAMINE HCL 100 MG TABLET PO SCH (23:23)
[2018-08-27] MEDS: RINGERS SOLUTION,LACTATED 1,000 ML IV PRN ×3 (00:07→19:22)
[2018-08-27] MEDS: MORPHINE SULFATE 10 MG/ML INJ IV PRN ×4 (02:58→23:40)
[2018-08-27] MEDS: DIAZEPAM 5 MG TABLET PO SCH ×3 (05:16→21:34)
[2018-08-27 07:01] LABS: INTERNATIONAL RATION (INR) 1.02; PROTHROMBIN TIME 13.9 SEC (11.4-15.4)
[2018-08-27] MEDS: FAMOTIDINE 20 MG TABLET PO SCH ×4 (08:15→21:35)
[2018-08-27] MEDS: SUCRALFATE 1 GM TABLET PO SCH ×4 (08:16→21:34)
[2018-08-27] MEDS: METOCLOPRAMIDE HCL 10 MG TABLET PO SCH ×4 (08:16→21:35)
[2018-08-27 08:49] LABS: HEMATOCRIT 38.8 % (36.0-47.0); HEMOGLOBIN 12.9 g/dL (12.0-15.5); MEAN CORPUSCULAR HEMOGLOBIN 31.3 pg (27.0-33.4); MEAN CORPUSCULAR HGB CONC 33.4 g/dL (32.0-36.0); MEAN CORPUSCULAR VOLUME 94 fl (80-97); RED BLOOD COUNT 4.13 10^6/uL (3.72-5.28); RED CELL DISTRIBUTION WIDTH 16.6 % (11.5-14.0); WHITE BLOOD COUNT 6.2 10^3/uL (4.0-10.5)
[2018-08-27 09:09] LABS: ALANINE AMINOTRANSFERASE 105 U/L (9-52); ALBUMIN 3.7 g/dL (3.5-5.0); ALKALINE PHOSPHATASE 110 U/L (38-126); ANION GAP 15 (5-19); ASPARTATE AMINO TRANSFERASE 135 U/L (14-36); BILIRUBIN,TOTAL 1.9 mg/dL (0.2-1.3); BLOOD UREA NITROGEN 4 mg/dL (7-20); CALCIUM 9.1 mg/dL (8.4-10.2); CARBON DIOXIDE 28 mmol/L (22-30); CHLORIDE 94 mmol/L (98-107); GLUCOSE 105 mg/dL (75-110); POTASSIUM 3.3 mmol/L (3.6-5.0); SODIUM 136.5 mmol/L (137-145); TOTAL PROTEIN 6.2 g/dL (6.3-8.2)
[2018-08-27 09:12] LABS: AMYLASE < 30 U/L (30-110)
[2018-08-27 09:15] LABS: PLATELET COUNT 68 10^3/uL (150-450)
[2018-08-27] MEDS ORDERED: GLUCAGON,HUMAN RECOMB 1 MG INJ SUBCUT PRN (10:22)
[2018-08-27] MEDS ORDERED: DEXTROSE 40% GEL 15 GM TUBE PO PRN ×2 (10:22)
[2018-08-27] MEDS ORDERED: DEXTROSE 50%-WATER 25 GM/50 ML DISP.SYRIN IV PRN ×2 (10:22)
[2018-08-27] MEDS: ENOXAPARIN SODIUM INJ 40 MG/0.4 ML DISP.SYRIN SUBCUT SCH (10:58)
[2018-08-27] MEDS: DOCUSATE SODIUM 100 MG CAPSULE PO SCH ×2 (10:59→18:34)
[2018-08-27] MEDS: FOLIC ACID 1 MG TABLET PO SCH (11:00)
[2018-08-27] MEDS: CITALOPRAM HYDROBROMIDE 20 MG TABLET PO SCH (11:00)
[2018-08-27] MEDS: THIAMINE HCL 100 MG TABLET PO SCH (11:09)
[2018-08-27] MEDS ORDERED: MAGNESIUM SULFATE/D5W 1 GM/100 ML RTUPB IV ONE (13:00)
[2018-08-27] MEDS: POTASSI CL 20 MEQ/50 ML RIDER 20 MEQ/50 ML RTUPB IV SCH ×2 (13:44→16:00)
--- NOTE | 2018-08-27 16:10 | PDOC PROGRESS REPORT ---
Subjective Progress Note for:: 08/27/18 Subjective:: DAVONTE ANTONY is a 27 year old female with a history of ETOH use and pancreatitis presented to the emergency room following a seizure at home. Admitted to hospitalist service for ETOH withdrawal and seizures. Patient seen this morning on rounds, she states she was able to tolerate clear liquid breakfast. States her abdominal pain is mildly improved. Endorses dry heaving overnight but denies nausea or vomiting this morning. Liver enzymes improving this morning patient counseled extensively regarding continued alcohol use and alcoholic hepatitis. Plan to advance diet today, hopefully discharge home in 24-48 hours. Reason For Visit: ACUTE ALCOHOL WITHDRAWAL,ACUTE ALCOHOLIC HEPATITIS Physical Exam Vital Signs: Temp Pulse Resp BP Pulse Ox 97.9 F 73 18 150/109 H 96 08/27/18 13:47 08/27/18 13:47 08/27/18 13:47 08/27/18 13:47 08/27/18 13:47 Intake & Output 08/26/18 08/27/18 08/28/18 06:59 06:59 06:59 Intake Total 1200 2790 1000 Output Total 200 Balance 1200 2590 1000 Weight 76.3 kg 78.8 kg General appearance: PRESENT: no acute distress, morbidly obese Head exam: PRESENT: atraumatic, normocephalic Eye exam: PRESENT: conjunctiva pink, EOMI, PERRLA. ABSENT: scleral icterus Ear exam: PRESENT: normal external ear exam Mouth exam: PRESENT: moist, tongue midline Neck exam: ABSENT: carotid bruit, JVD, lymphadenopathy, thyromegaly Respiratory exam: PRESENT: clear to auscultation vane, symmetrical, unlabored. ABSENT: rales, rhonchi, wheezes Cardiovascular exam: PRESENT: RRR. ABSENT: diastolic murmur, rubs, systolic murmur Pulses: PRESENT: normal radial pulses, normal dorsalis pedis pul Vascular exam: PRESENT: normal capillary refill GI/Abdominal exam: PRESENT: normal bowel sounds, soft, tenderness - RUQ LUQ. ABSENT: distended, guarding, mass, organolmegaly, rebound, rigid Rectal exam: PRESENT: deferred Extremities exam: PRESENT: full ROM. ABSENT: calf tenderness, clubbing, pedal edema Musculoskeletal exam: PRESENT: ambulatory, full ROM Neurological exam: PRESENT: alert, awake, oriented to person, oriented to place, oriented to time, oriented to situation Psychiatric exam: PRESENT: appropriate affect, normal mood Skin exam: PRESENT: dry, intact, warm, other - MULTIPLE THIN LINEAR SCARS ON FOREARMS, APPEAR TO BE OLD SELF INFLICTED WOUNDS. ABSENT: cyanosis, rash Results Laboratory Results: 08/27/18 07:50 08/27/18 07:50 08/27/18 08/27/18 08/27/18 05:45 05:45 07:50 WBC Cancelled 6.2 RBC Cancelled 4.13 Hgb Cancelled 12.9 Hct Cancelled 38.8 MCV Cancelled 94 MCH Cancelled 31.3 MCHC Cancelled 33.4 RDW Cancelled 16.6 H Plt Count Cancelled 68 L Sodium Cancelled Potassium Cancelled Chloride Cancelled Carbon Dioxide Cancelled Anion Gap Cancelled BUN Cancelled Creatinine Cancelled Est GFR ( Amer) Cancelled Est GFR (Non-Af Amer) Cancelled Glucose Cancelled Calcium Cancelled Magnesium Cancelled Total Bilirubin Cancelled AST Cancelled ALT Cancelled Alkaline Phosphatase Cancelled Total Protein Cancelled Albumin Cancelled Amylase Cancelled 08/27/18 07:50 WBC RBC Hgb Hct MCV MCH MCHC RDW Plt Count Sodium 136.5 L Potassium 3.3 L Chloride 94 L Carbon Dioxide 28 Anion Gap 15 BUN 4 L Creatinine 0.63 Est GFR ( Amer) > 60 Est GFR (Non-Af Amer) > 60 Glucose 105 Calcium 9.1 Magnesium 1.8 Total Bilirubin 1.9 H AST 135 H ALT 105 H Alkaline Phosphatase 110 Total Protein 6.2 L Albumin 3.7 Amylase < 30 L Status: Imported from PACS Assessment and Plan - Diagnosis (1) Seizure due to alcohol withdrawal Qualifiers: Complication of substance-induced condition: uncomplicated Qualified Code(s): F10.230 - Alcohol dependence with withdrawal, uncomplicated Is this a current diagnosis for this admission?: Yes Plan: Secondary to no abrupt cessation of ETOH use Valium 10 mg IV q. one hour as needed for seizure activity or other withdrawal symptoms daily thiamine and folate seizure precautions (2) Abdominal pain Is this a current diagnosis for this admission?: Yes Plan: Improving Secondary to pancreatitis and hepatitis PRN morphine IV Avoid tylenol or medications that contain tylenol Advance diet from clear liquids to full liquids today (3) Acute alcoholic hepatitis Is this a current diagnosis for this admission?: Yes Plan: Improving Supportive care - IVF and pain management AST/ALT 621/178-->135/105 (today) Counseled about continued ETOH use and chronic liver disease (4) Alcohol withdrawal Qualifiers: Complication of substance-induced condition: with delirium Qualified Code(s): F10.231 - Alcohol dependence with withdrawal delirium Is this a current diagnosis for this admission?: Yes Plan: as above (5) Chronic alcoholic pancreatitis Is this a current diagnosis for this admission?: Yes Plan: Tolerating clear liquid diet Will advance to full liquid diet Continue maintenance IVF - Time Time Spent with patient: 15-24 minutes Medications reviewed and adjusted accordingly: Yes Anticipated discharge: Home Within: within 48 hours - Inpatient Certification Based on my medical assessment, after consideration of the patient's comorbidities, presenting symptoms, or acuity I expect that the services needed warrant INPATIENT care.: Yes I certify that my determination is in accordance with my understanding of Medicare's requirements for reasonable and necessary INPATIENT services [42 CFR 412.3e].: Yes Medical Necessity: Need For Continuous Telemetry Monitoring, Risk of Complication if Not Cared For in Hospital
[2018-08-27] MEDS ORDERED: HYDRALAZINE HCL INJ/PF 20 MG/1 ML SDV IV PRN (21:23)
[2018-08-27] MEDS ORDERED: HYDRALAZINE HCL INJ/PF 20 MG/1 ML SDV ONE (21:32)
[2018-08-28] MEDS: RINGERS SOLUTION,LACTATED 1,000 ML IV PRN (03:44)
[2018-08-28 05:10] LABS: HEMATOCRIT 39.6 % (36.0-47.0); HEMOGLOBIN 13.4 g/dL (12.0-15.5); MEAN CORPUSCULAR HEMOGLOBIN 31.7 pg (27.0-33.4); MEAN CORPUSCULAR HGB CONC 33.8 g/dL (32.0-36.0); MEAN CORPUSCULAR VOLUME 94 fl (80-97); RED BLOOD COUNT 4.22 10^6/uL (3.72-5.28); RED CELL DISTRIBUTION WIDTH 16.6 % (11.5-14.0); WHITE BLOOD COUNT 6.9 10^3/uL (4.0-10.5)
[2018-08-28 05:11] LABS: INTERNATIONAL RATION (INR) 1.02; PROTHROMBIN TIME 13.9 SEC (11.4-15.4)
[2018-08-28 05:30] LABS: ALANINE AMINOTRANSFERASE 98 U/L (9-52); ALBUMIN 3.8 g/dL (3.5-5.0); ALKALINE PHOSPHATASE 118 U/L (38-126); ANION GAP 17 (5-19); ASPARTATE AMINO TRANSFERASE 146 U/L (14-36); BILIRUBIN,DIRECT 0.9 mg/dL (0.0-0.4); BILIRUBIN,TOTAL 1.9 mg/dL (0.2-1.3); BLOOD UREA NITROGEN 4 mg/dL (7-20); CALCIUM 9.2 mg/dL (8.4-10.2); CARBON DIOXIDE 27 mmol/L (22-30); CHLORIDE 94 mmol/L (98-107); GLUCOSE 106 mg/dL (75-110); POTASSIUM 3.3 mmol/L (3.6-5.0); SODIUM 138.2 mmol/L (137-145); TOTAL PROTEIN 6.2 g/dL (6.3-8.2)
[2018-08-28 05:32] LABS: AMYLASE < 30 U/L (30-110)
[2018-08-28] MEDS: DIAZEPAM 5 MG TABLET PO SCH (05:37)
[2018-08-28 05:48] LABS: PLATELET COUNT 70 10^3/uL (150-450)
[2018-08-28] MEDS: MORPHINE SULFATE 10 MG/ML INJ IV PRN (08:16)
[2018-08-28] MEDS: METOCLOPRAMIDE HCL 10 MG TABLET PO SCH ×2 (08:17→13:36)
[2018-08-28] MEDS: SUCRALFATE 1 GM TABLET PO SCH ×2 (08:17→13:36)
[2018-08-28] MEDS: FAMOTIDINE 20 MG TABLET PO SCH ×2 (08:17→10:27)
[2018-08-28] MEDS ORDERED: OXYCODONE-ACETAMINOPHEN 5-325 MG TABLET PO PRN ×2 (08:21)
[2018-08-28] MEDS ORDERED: POTASSIUM CHLORIDE 10 MEQ CAPSULE.ER PO ONE (10:00)
[2018-08-28] MEDS: CITALOPRAM HYDROBROMIDE 20 MG TABLET PO SCH (10:27)
[2018-08-28] MEDS: FOLIC ACID 1 MG TABLET PO SCH (10:28)
[2018-08-28] MEDS: DOCUSATE SODIUM 100 MG CAPSULE PO SCH (10:28)
[2018-08-28] MEDS: THIAMINE HCL 100 MG TABLET PO SCH (10:39)
[2018-08-28] MEDS: ENOXAPARIN SODIUM INJ 40 MG/0.4 ML DISP.SYRIN SUBCUT SCH (10:41)
[2018-08-28 12:58] VITALS: BP 137/95
[2018-08-28] MEDS ORDERED: DIAZEPAM 5 MG TABLET PO SCH (14:00)
--- NOTE | 2018-08-28 21:17 | PDOC DISCHARGE SUMMARY ---
General - Admit/Disc Date/PCP Admission Date/Primary Care Provider: 08/25/18 19:39 SYLVIA PAK MD Discharge Date: 08/28/18 - Discharge Diagnosis (1) Abdominal pain Is this a current diagnosis for this admission?: Yes Summary: Improved Secondary to pancreatitis and alcoholic hepatitis Patient placed in npo status and supported with IVF, antiemetics, and analgesics as needed. Her symptoms gradually improved and she was advanced to a full liquid diet, which she continued to tolerate well. She is discharged home with short prescriptions for zofran and percocet. She is reminded to drink plenty of fluids and advance diet slowly as tolerated. (2) Acute alcoholic hepatitis Is this a current diagnosis for this admission?: Yes Summary: Improved AST/ALT 621/178-->146/98 (today) Counseled about continued ETOH use and chronic liver disease; she is strongly advised to remain sober. Patient is encouraged to follow up with her PCP within 1 week, establish with a local mental health or substance abuse councillor and to attend AA meetings or other support group. (3) Alcohol withdrawal Is this a current diagnosis for this admission?: Yes Summary: Patient was admitted to the medical floor on continuous cardiac telemetry. She was supported with IVF, scheduled and as needed valium which was slowly weaned over the course of her admission. She is placed on daily multivitamin, folic acid, and thiamine supplements which she is recommended to continue after discharge. (4) Chronic alcoholic pancreatitis Is this a current diagnosis for this admission?: Yes Summary: Lipase 44.2 She was provided symptomatic management. Diet has been advanced to full liquids, which she continues to tolerate well. (5) Deliberate self-cutting Is this a current diagnosis for this admission?: Yes Summary: Mental health services were consulted; have cleared her for discharge to home. Continue home dose Celexa. Establish with a mental health provider as soon as possible. Return to the emergency department immediately for self-injurious thoughts or actions. (6) Obesity (BMI 30.0-34.9) Is this a current diagnosis for this admission?: Yes Summary: Dietary discretion is advised. (7) Seizure due to alcohol withdrawal Is this a current diagnosis for this admission?: Yes Summary: Secondary to abrupt cessation of ETOH use She was admitted to the medical floor and provided supportive care including IVF, scheduled and as needed valium, daily thiamine and folate supplementation. Her scheduled valium was gradually weaned with adequate tolerance. The patient with the mental health services prior to discharged; cleared from their stand point to be discharged to home. The patient is discharged to home in stable condition. She is advised to follow up with her PCP within 1 week and to establish with a mental health provider and/or substance abuse tree trimmer helper as soon as possible. She is encouraged to attend AA meetings or other similar support group. She is instructed to return to the emergency department for any concerning symptoms. - Additional Information Resuscitation Status: Full Code Discharge Diet: As Tolerated Discharge Activity: Activity As Tolerated, Balance Activity w/Rest, Slowly Increase Activity Prescriptions: Diazepam [Valium 2 mg Tablet] 2 mg PO Q6HP PRN #8 tablet PRN Reason: Famotidine [Pepcid 20 mg Tablet] 20 mg PO QAM #30 tablet Folic Acid [Folvite 1 mg Tablet] 1 mg PO DAILY #90 tablet Nicotine [Nicoderm 21 mg/24 Hr Transderm Patch] 1 each TD DAILYP PRN #30 patch.td24 PRN Reason: Ondansetron [Zofran Odt 4 mg Tablet] 4 mg PO Q4HP PRN #20 tab.rapdis PRN Reason: Oxycodone HCl/Acetaminophen [Percocet 5-325 mg Tablet] 1 tab PO Q4HP PRN #18 tablet PRN Reason: Thiamine HCl [Thiamine 100 mg Tablet] 100 mg PO DAILY #90 tablet Home Medications: Citalopram Hydrobromide [Citalopram HBr] 30 mg PO DAILY 08/25/18 Ondansetron HCl [Zofran 4 mg Tablet] 4 mg PO Q8HP PRN 08/25/18 Citalopram Hydrobromide [Celexa 20 mg Tablet] 30 mg PO DAILY tablet 08/28/18 Diazepam [Valium 2 mg Tablet] 2 mg PO Q6HP PRN #8 tablet 08/28/18 Docusate Sodium [Colace 100 mg Capsule] 100 mg PO BID capsule 08/28/18 Famotidine [Pepcid 20 mg Tablet] 20 mg PO QAM #30 tablet 08/28/18 Folic Acid [Folvite 1 mg Tablet] 1 mg PO DAILY #90 tablet 08/28/18 Nicotine [Nicoderm 21 mg/24 Hr Transderm Patch] 1 each TD DAILYP PRN #30 patch.td24 05/04/19 Ondansetron [Zofran Odt 4 mg Tablet] 4 mg PO Q4HP PRN #20 tab.rapdis 08/28/18 Oxycodone HCl/Acetaminophen [Percocet 5-325 mg Tablet] 1 tab PO Q4HP PRN #18 tablet 08/28/18 Thiamine HCl [Thiamine 100 mg Tablet] 100 mg PO DAILY #90 tablet 08/28/18 History of Present Illness History of Present Illness: Per H&P by Dr. Augustin: DAVONTE ANTONY is a 27 year old female who presented to the emergency room with an acute seizure at home. Patient admits that she is an alcoholic and has a history of chronic pancreatitis which led her to stop drinking 2 days ago because she had been experiencing generalized malaise, decreased appetite, mild epigastric/right upper quadrant pain, nausea and vomiting. This afternoon while at home she experienced a seizure witnessed by her parents lasting for 1 to 2 minutes and resulting in her biting her lips during the generalized tonic-clonic seizure activity and a short period of mild post ictal confusion. She denies prior seizures and has not identified any aggravating or ameliorating factors for her seizure activity other than her recent alcohol cessation. She views this is a severe withdrawal episode, causing her to seek medical help. In the emergency room she was found to have a bilirubin of 4.2 with an AST of 621 and ALT of 178. She was subsequently admitted to the hospital for further evaluation and treatment. Physical Exam Vital Signs: Temp Pulse Resp BP Pulse Ox 98.9 F 74 17 137/95 H 100 08/28/18 15:30 08/28/18 15:30 08/28/18 15:30 08/28/18 15:30 08/28/18 15:30 Intake & Output 08/27/18 08/28/18 08/29/18 06:59 06:59 06:59 Intake Total 2790 4040 Output Total 200 3000 Balance 2590 1040 Weight 78.8 kg 78.8 kg General appearance: PRESENT: no acute distress, disheveled - poor body odor, obese, well-developed, well-nourished Head exam: PRESENT: atraumatic, normocephalic Eye exam: PRESENT: conjunctiva pink, EOMI, PERRLA. ABSENT: scleral icterus Mouth exam: PRESENT: moist, tongue midline Teeth exam: PRESENT: poor dentation Neck exam: ABSENT: carotid bruit, JVD, lymphadenopathy, thyromegaly Respiratory exam: PRESENT: clear to auscultation vane, symmetrical, unlabored. ABSENT: rales, rhonchi, wheezes Cardiovascular exam: PRESENT: RRR. ABSENT: diastolic murmur, rubs, systolic murmur Pulses: PRESENT: normal dorsalis pedis pul Vascular exam: PRESENT: normal capillary refill GI/Abdominal exam: PRESENT: normal bowel sounds, soft. ABSENT: distended, guarding, mass, organolmegaly, rebound, tenderness Rectal exam: PRESENT: deferred Extremities exam: PRESENT: full ROM. ABSENT: calf tenderness, clubbing, pedal edema Neurological exam: PRESENT: alert, awake, oriented to person, oriented to place, oriented to time, oriented to situation, CN II-XII grossly intact. ABSENT: motor sensory deficit Psychiatric exam: PRESENT: appropriate affect, normal mood. ABSENT: homicidal i deation, suicidal ideation Skin exam: PRESENT: dry, intact, warm. ABSENT: cyanosis, rash Results Laboratory Results: 08/28/18 04:42 08/28/18 04:42 08/28/18 08/28/18 04:42 04:42 WBC 6.9 RBC 4.22 Hgb 13.4 Hct 39.6 MCV 94 MCH 31.7 MCHC 33.8 RDW 16.6 H Plt Count 70 L Sodium 138.2 Potassium 3.3 L Chloride 94 L Carbon Dioxide 27 Anion Gap 17 BUN 4 L Creatinine 0.50 L Est GFR ( Amer) > 60 Est GFR (Non-Af Amer) > 60 Glucose 106 Calcium 9.2 Magnesium 1.7 Total Bilirubin 1.9 H AST 146 H ALT 98 H Alkaline Phosphatase 118 Total Protein 6.2 L Albumin 3.8 Amylase < 30 L Qualifiers - * PATIENT BEING DISCHARGED WITH ANY OF THE FOLLOWING DIAGNOSIS: No Acute Heart Failure Is this a Heart Failure Patient?: No Plan Discharge Plan: Follow-up with primary care provider within 1 week. Strongly recommend that attending AA sessions. Establish with a mental health provider for continued care. Do NOT drink alcohol or take illicit drugs. Return to the emergency department as needed for concerning symptoms. Time Spent: Greater than 30 Minutes
== END 2018-08-28 16:35 | disposition home or self-care (01) | DRG 897 ==
LOC: ER 16:54 → EH 19:39 → 4N 22:37
PROVIDERS: ADMIT Emergency Medicine; ATTEND Emergency Medicine
DX: F10.231 Alcohol dependence with withdrawal delirium (principal); K86.0 Alcohol-induced chronic pancreatitis; E87.2 Acidosis; K70.10 Alcoholic hepatitis without ascites; E66.9 Obesity, unspecified; Z68.30 Body mass index [BMI] 30.0-30.9, adult; E83.42 Hypomagnesemia; F10.230 Alcohol dependence with withdrawal, uncomplicated; Z91.5 Personal history of self-harm
CPT/HCPCS: 36415; 80048; 80053; 80061; 80076; 80307; 81001; 82150; 82962; 83036; 83690; 83735; 84439; 84443; 84481; 84703; 85025; 85027; 85610; 93005; 93010; 96361; 96374; 99291; J0360; J1650; J2270; J2300; J2405; J3360; J3475; J3480; J3490; J7030; J7120

== ENCOUNTER 2018-10-28 03:11 | Inpatient (IN) | payer SELFPAY ==
[2018-10-28] MEDS ORDERED: RINGERS SOLUTION,LACTATED 1,000 ML IV PRN (04:33)
[2018-10-28] MEDS ORDERED: DIAZEPAM INJ 10 MG/2 ML DISP.SYRIN IV ONE ×2 (04:34→06:14)
[2018-10-28] MEDS ORDERED: ONDANSETRON HCL INJ/PF 4 MG/2 ML SDV IV ONE (04:34)
--- NOTE | 2018-10-28 04:38 | ER Document Report ---
ED General - General Chief Complaint: Abdominal Pain Stated Complaint: VOMITTING, ABDOMINAL PAIN Time Seen by Provider: 10/28/18 04:09 Primary Care Provider: SYLVIA PAK MD [Primary Care Provider] - Follow up as needed Notes: Patient is a 27-year-old female with history of alcoholism who presents with complaints of epigastric pain and vomiting. She has a history of alcohol withdrawal and feels as if she is going to alcohol withdrawal again. She is tachycardic. She feels as if she may have pancreatitis. She has been drinking rubbing alcohol over the last several days as she did not have access to normal at the alcohol. She denies any fevers. No blood in her emesis. No blood in her stool. No other complaints at this time. TRAVEL OUTSIDE OF THE [place] IN LAST 30 DAYS: No - Related Data Allergies/Adverse Reactions: No Known Allergies Allergy (Verified 10/07/17 11:03) Past Medical History - Social History Smoking Status: Never Smoker Frequency of alcohol use: None Drug Abuse: None Family History: Hypertension, Other - Alcohol dependence, depression - Past Medical History Cardiac Medical History: Denies: Hx Atrial Fibrillation, Hx Coronary Artery Disease, Hx DVT, Hx Hypercholesterolemia, Hx Hypertension, Hx Pulmonary Embolism Pulmonary Medical History: Denies: Hx Asthma, Hx COPD Neurological Medical History: Reports: Hx Migraine. Denies: Hx Seizures Endocrine Medical History: Denies: Hx Diabetes Mellitus Type 1, Hx Diabetes Mellitus Type 2, Hx Hyperthyroidism, Hx Hypothyroidism Renal/ Medical History: Denies: Hx Peritoneal Dialysis GI Medical History: Reports: Hx Hepatitis - Prior liver enzyme elevations with exacerbations of chronic pancreatitis. Denies: Hx Cirrhosis, Hx Crohn's Disease, Hx Ulcerative Colitis Musculoskeletal Medical History: Denies Hx Arthritis, Denies Hx Gout Skin Medical History: Denies Hx Eczema, Denies Hx Psoriasis Psychiatric Medical History: Reports: Hx Attention Deficit Hyperactivity Disorder, Hx Depression - Past history of suicidal ideation and self cutting Infectious Medical History: Reports: Hx Hepatitis - Prior liver enzyme elevations with exacerbations of chronic pancreatitis Past Surgical History: Reports: Hx Tonsillectomy Review of Systems - Review of Systems Notes: My Normal Review Basic REVIEW OF SYSTEMS: CONSTITUTIONAL : Denies fever, chills, or sweats. Denies recent illness. CARDIOVASCULAR: Denies chest pain. RESPIRATORY: Denies cough, cold, or chest congestion. Denies shortness of breath, difficulty breathing, or wheezing. GASTROINTESTINAL: Epigastric abdominal pain. recurrent vomiting. GENITOURINARY: Denies difficulty urinating, painful urination, burning, frequency, or blood in urine. MUSCULOSKELETAL: Denies neck or back pain or joint pain or swelling. SKIN: Denies rash or skin lesions. NEUROLOGICAL: Denies altered mental status or loss of consciousness. Denies headache. Denies weakness or paralysis or loss of use of either side. Denies problems with gait or speech. Denies sensory or motor loss. ALL OTHER SYSTEMS REVIEWED AND NEGATIVE. Physical Exam - Vital signs Vitals: Temp Pulse Resp BP Pulse Ox 98.3 F 139 H 24 H 138/93 H 98 10/28/18 03:12 10/28/18 03:12 10/28/18 03:12 10/28/18 03:12 10/28/18 03:12 - Notes Notes: General Appearance: Well nourished, alert, cooperative, no acute distress, no obvious discomfort. Vitals: reviewed, See vital signs table. Head: no swelling or tenderness to the head Eyes: PERRL, EOMI, Conjuctiva clear Mouth: No decreasd moisture Lungs: No wheezing, No rales, No rhonci, No accessory muscle use, good air exchange bilaterally. Heart: Normal rate, Regular rythm, No murmur, no rub Abdomen: Normal BS, soft, No rigidity, mild to moderate epigastric tenderness to palpation. Remainder of abdomen is nontender., No guarding, no rebound, no abdominal masses, no organomegaly Extremities: good pulses in all extremities, no swelling or tenderness in the extremities, no edema. Skin: warm, dry, appropriate color, no rash Neuro: speech clear, oriented x 3, normal affect, responds appropriately to questions. Course - Re-evaluation Re-evalutation: 10/28/18 07:55 Patient potassium is low. I did order K rider. She does have some intermittent tremors that is improved with volume. Tachycardia also seems respond to volume. Volume resolved tachycardia and tremors come back. She is complaining epigastric pain feels like she has pink otitis have her lipase is normal CT scan does not show any inflammation around the pancreas suggesting that she most likely has alcoholic gastritis causing her epigastric pain and vomiting. Did give her a dose of Protonix. She has been drinking isopropyl alcohol. She is not acidotic and does not have a gap. She has no other symptoms at this time. I feel she is appropriate for admission. I did speak with the hospitalist, Dr. Elam, who agrees to evaluate the patient for admission. Dictation of this chart was performed using voice recognition software; therefore, there may be some unintended grammatical errors. - Vital Signs Vital signs: Temp Pulse Resp BP Pulse Ox 98.3 F 139 H 24 H 138/93 H 98 10/28/18 03:12 10/28/18 03:12 10/28/18 03:12 10/28/18 03:12 10/28/18 03:12 - Laboratory Result Diagrams: 10/28/18 04:33 10/28/18 04:33 Laboratory results interpreted by me: 10/28/18 10/28/18 10/28/18 04:33 04:33 04:33 WBC 15.6 H RDW 14.8 H Seg Neutrophils % 85.5 H Lymphocytes % 8.0 L Absolute Neutrophils 13.4 H Potassium 3.0 L* BUN 4 L Glucose 199 H Serum Osmolality 335 H Magnesium AST 54 H Urine Protein Urine Ketones Urine Blood Urine Urobilinogen Ur Leukocyte Esterase Salicylates < 1.0 L Acetaminophen < 10 L 10/28/18 10/28/18 04:33 05:50 WBC RDW Seg Neutrophils % Lymphocytes % Absolute Neutrophils Potassium BUN Glucose Serum Osmolality Magnesium 2.4 H AST Urine Protein 100 H Urine Ketones 80 H Urine Blood SMALL H Urine Urobilinogen 2.0 H Ur Leukocyte Esterase MODERATE H Salicylates Acetaminophen - EKG Interpretation by Me Additional EKG results interpreted by me: 10/28/18 04:34 EKG is reviewed and interpreted by me. EKG shows sinus tachycardia with a rate of [address] segment elevation or depression. No ischemic T wave inversions. AL interval, QRS duration, QT intervals are within normal range. No old EKG available for comparison. Procedures - Additional Procedures IV insertion Additional Procedures: IV insertion Notes: 10/28/18 04:37 Patient had poor peripheral access and nurses unable to obtain a peripheral IV. Therefore placed a 20-gauge 1 and three-quarter inch Angiocath in the left antecubital region. Occasionally the vein and had nonpulsatile blood with control. I did this under ultrasound. Area was cleaned with chlorhexidine wipe prior to IV insertion. IV flushed well with saline. Patient tolerated procedure well without complications. Discharge - Discharge Clinical Impression: Alcohol abuse, Hypokalemia Alcoholic gastritis Qualifiers: Chronicity: acute Gastritis bleeding: without bleeding Qualified Code(s): K29.20 - Alcoholic gastritis without bleeding Vomiting Qualifiers: Vomiting type: unspecified Vomiting Intractability: intractable Nausea presence: with nausea Qualified Code(s): R11.2 - Nausea with vomiting, uns pecified Condition: Stable Disposition: ADMITTED OBSERVATION Admitting Provider: Papa (Hospitalist) Unit Admitted: IMCU Referrals: SYLVIA PAK MD [Primary Care Provider] - Follow up as needed
[2018-10-28 04:46] LABS: ABSOLUTE BASOPHILS # (AUTO) 0.1 10^3/uL (0.0-0.2); ABSOLUTE LYMPHOCYTES (AUTO) 1.2 10^3/uL (0.5-4.7); ABSOLUTE MONOCYTES (AUTO) 0.9 10^3/uL (0.1-1.4); ABSOLUTE NEUT (AUTO) 13.4 10^3/uL (1.7-8.2); BASOPHILS % (AUTO) 0.9 % (0-2); HEMATOCRIT 41.6 % (36.0-47.0); MEAN CORPUSCULAR HEMOGLOBIN 29.8 pg (27.0-33.4); MEAN CORPUSCULAR HGB CONC 33.7 g/dL (32.0-36.0); MEAN CORPUSCULAR VOLUME 89 fl (80-97); MONOCYTES % (AUTO) 5.6 % (3-13); PLATELET COUNT 429 10^3/uL (150-450); RED BLOOD COUNT 4.69 10^6/uL (3.72-5.28); RED CELL DISTRIBUTION WIDTH 14.8 % (11.5-14.0); SEGMENTED NEUTROPHILS % (AUTO) 85.5 % (42-78); TOTAL CELLS COUNTED % (AUTO) 100 %; WHITE BLOOD COUNT 15.6 10^3/uL (4.0-10.5)
[2018-10-28 04:57] LABS: ALANINE AMINOTRANSFERASE 28 U/L (9-52); ALBUMIN 4.9 g/dL (3.5-5.0); ALKALINE PHOSPHATASE 85 U/L (38-126); ANION GAP 15 (5-19); ASPARTATE AMINO TRANSFERASE 54 U/L (14-36); BILIRUBIN,DIRECT 0.3 mg/dL (0.0-0.4); BILIRUBIN,TOTAL 0.5 mg/dL (0.2-1.3); BLOOD UREA NITROGEN 4 mg/dL (7-20); CALCIUM 9.5 mg/dL (8.4-10.2); CARBON DIOXIDE 26 mmol/L (22-30); CHLORIDE 100 mmol/L (98-107); GLUCOSE 199 mg/dL (75-110); SODIUM 140.8 mmol/L (137-145); TOTAL PROTEIN 7.9 g/dL (6.3-8.2)
[2018-10-28 04:58] LABS: ACETAMINOPHEN < 10 ug/mL (10-30); ALCOHOL < 10 mg/dL (NONE DETECTED); SALICYLATE < 1.0 mg/dL (2.0-20.0)
[2018-10-28] MEDS ORDERED: PROMETHAZINE HCL INJ 25 MG/1 ML VIAL IM ONE (05:33)
[2018-10-28] MEDS ORDERED: PANTOPRAZOLE SODIUM 40 MG VIAL IV ONE (06:07)
[2018-10-28 06:11] LABS: APPEARANCE,URINE CLOUDY; BILIRUBIN,URINE NEGATIVE (NEGATIVE); COLOR,URINE AMBER; GLUCOSE, URINE NEGATIVE (NEGATIVE); KETONES,URINE 80 mg/dL (NEGATIVE); LEUKOCYTE ESTERASE,URINE MODERATE (NEGATIVE); NITRITE,URINE NEGATIVE (NEGATIVE); PROTEIN,URINE 100 mg/dL (NEGATIVE); URINE SPECIFIC GRAVITY 1.016
[2018-10-28 06:20] LABS: URINE AMPHETAMINES SCREEN NEGATIVE; URINE BARBITURATES SCREEN NEGATIVE; URINE BENZODIAZEPINES SCREEN UNCONFIRMED POSITIVE; URINE COCAINE SCREEN NEGATIVE; URINE MARIJUANA (THC) SCREEN UNCONFIRMED POSITIVE; URINE METHADONE SCREEN NEGATIVE; URINE PHENCYCLIDINE SCREEN NEGATIVE
--- NOTE | 2018-10-28 07:03 | RADIOLOGY REPORT (SQ) ---
EXAM DESCRIPTION: CT ABDOMEN PELVIS WITH IV CONTRAST COMPLETED DATE/TME: 10/28/2018 06:12 CLINICAL HISTORY: 27 years, Female, abdominal pain HCG NEG COMPARISON: 05/27/2017 TECHNIQUE: Axial CT images of the abdomen and pelvis were obtained after the administration of IV contrast. Sagittal and coronal reformats were performed. [facility] [id number] Images stored on PACS. All CT scanners at this facility use dose modulation, iterative reconstruction, and/or weight based dosing when appropriate to reduce radiation dose to as low as reasonably achievable (ALARA). [facility]: Dose Right [facility]: CareDose [facility]: Dose Right [facility]: Teradose 4D [facility]: [employer] LIMITATIONS: None. FINDINGS: The lung bases are clear. The liver is hypodense. The gallbladder, spleen, and adrenal glands are unremarkable. There are coarse calcifications within the pancreas. No peripancreatic inflammatory changes. There is a 1.7 cm cyst abutting the tail of the pancreas, decreased in size from the prior which measured 4.7 cm, likely representing a pseudocyst. Both kidneys appear unremarkable. No evidence of hydronephrosis or hydroureter. There is no intraperitoneal free air or fluid. There is no lymphadenopathy. Abdominal aorta is normal in caliber. The stomach, small bowel, and appendix appear unremarkable. The colon is incompletely distended. The uterus, adnexa, and urinary bladder are unremarkable. The bones are unremarkable. IMPRESSION: No acute findings. Fatty liver. Chronic pancreatitis with decrease in size of the pseudocyst near the pancreatic tail. No peripancreatic inflammatory changes to suggest acute pancreatitis. TECHNICAL DOCUMENTATION: Quality ID # 436: Final reports with documentation of one or more dose reduction techniques (e.g., Automated exposure control, adjustment of the mA and/or kV according to patient size, use of iterative reconstruction technique) copyright 2010 [employer]- All Rights Reserved
[2018-10-28] MEDS: POTASSI CL 20 MEQ/50 ML RIDER 20 MEQ/50 ML RTUPB IV SCH ×2 (07:12→09:16)
[2018-10-28] MEDS ORDERED: HYDROMORPHONE HCL INJ/PF 2 MG/ML AMPULE IV ONE (07:15)
[2018-10-28] MEDS ORDERED: ACETAMINOPHEN 325 MG TABLET PO PRN (10:15)
[2018-10-28] MEDS ORDERED: PROMETHAZINE HCL INJ 25 MG/1 ML VIAL IV PRN (10:15)
[2018-10-28] MEDS ORDERED: IPRATROPIUM/ALBUTEROL 0.5-2.5 MG/3 ML AMPUL NEB PRN (10:15)
[2018-10-28] MEDS ORDERED: TEMAZEPAM 7.5 MG CAPSULE PO PRN (10:15)
[2018-10-28] MEDS ORDERED: THIAMINE HCL 100 MG TABLET PO ONE (10:20)
[2018-10-28] MEDS: LORAZEPAM INJ 2 MG/1 ML VIAL IV PRN ×2 (11:07→22:20)
[2018-10-28] MEDS: OXYCODONE-ACETAMINOPHEN 5-325 MG TABLET PO PRN ×2 (11:07→17:32)
[2018-10-28] MEDS: DEXTROSE 5%-NORMAL SALINE 1,000 ML IV PRN ×2 (11:35→22:22)
[2018-10-28 12:31] LABS: APPEARANCE,URINE SLIGHTLY-CLOUDY; BILIRUBIN,URINE NEGATIVE (NEGATIVE); COLOR,URINE YELLOW; GLUCOSE, URINE NEGATIVE (NEGATIVE); KETONES,URINE 80 mg/dL (NEGATIVE); LEUKOCYTE ESTERASE,URINE MODERATE (NEGATIVE); NITRITE,URINE NEGATIVE (NEGATIVE); PROTEIN,URINE 30 mg/dL (NEGATIVE); UROBILINOGEN,URINE NEGATIVE mg/dL (<2.0)
[2018-10-28] MEDS: KETOROLAC TROMETHAMINE INJ/PF 30 MG/1 ML SDV IV PRN ×2 (12:41→22:27)
[2018-10-28] MEDS: HEPARIN SOD (PORCINE) 5,000 UNIT/ML 1 ML SYRINGE SUBCUT SCH ×2 (14:34→22:20)
[2018-10-28] MEDS ORDERED: CEFTRIAXONE 1 GM/D5W RTU 1 GM/50 ML RTUPB IV SCH (15:00)
--- NOTE | 2018-10-28 15:57 | PDOC PROGRESS REPORT ---
Subjective Progress Note for:: 10/28/18 Reason For Visit: ETOH INTOXICATION,N/V,HYPOKALEMIA Physical Exam Vital Signs: Temp Pulse Resp BP Pulse Ox 98.2 F 105 H 14 105/66 98 10/28/18 11:34 10/28/18 14:22 10/28/18 14:22 10/28/18 11:34 10/28/18 14:22 Intake & Output 10/27/18 10/28/18 10/29/18 06:59 06:59 06:59 Intake Total 1100 Balance 1100 Weight 70.8 kg Results Laboratory Results: 10/28/18 04:33 10/28/18 13:23 10/28/18 10/28/18 10/28/18 04:33 04:33 04:33 WBC 15.6 H RBC 4.69 Hgb 14.0 Hct 41.6 MCV 89 MCH 29.8 MCHC 33.7 RDW 14.8 H Plt Count 429 Seg Neutrophils % 85.5 H Lymphocytes % 8.0 L Monocytes % 5.6 Eosinophils % 0.0 Basophils % 0.9 Absolute Neutrophils 13.4 H Absolute Lymphocytes 1.2 Absolute Monocytes 0.9 Absolute Eosinophils 0.0 Absolute Basophils 0.1 Sodium 140.8 Potassium 3.0 L* Chloride 100 Carbon Dioxide 26 Anion Gap 15 BUN 4 L Creatinine 0.62 Est GFR ( Amer) > 60 Est GFR (Non-Af Amer) > 60 Glucose 199 H Serum Osmolality Calcium 9.5 Magnesium Total Bilirubin 0.5 AST 54 H ALT 28 Alkaline Phosphatase 85 Total Protein 7.9 Albumin 4.9 Lipase Serum HCG, Qual NEGATIVE Urine Color Urine Appearance Urine pH Ur Specific [place] Urine Protein Urine Glucose (UA) Urine Ketones Urine Blood Urine Nitrite Ur Leukocyte Esterase Urine WBC (Auto) Urine RBC (Auto) 10/28/18 10/28/18 10/28/18 04:33 04:33 04:33 WBC RBC Hgb Hct MCV MCH MCHC RDW Plt Count Seg Neutrophils % Lymphocytes % Monocytes % Eosinophils % Basophils % Absolute Neutrophils Absolute Lymphocytes Absolute Monocytes Absolute Eosinophils Absolute Basophils Sodium Potassium Chloride Carbon Dioxide Anion Gap BUN Creatinine Est GFR ( Amer) Est GFR (Non-Af Amer) Glucose Serum Osmolality 335 H Calcium Magnesium 2.4 H Total Bilirubin AST ALT Alkaline Phosphatase Total Protein Albumin Lipase 64.2 Serum HCG, Qual Urine Color Urine Appearance Urine pH Ur Specific [place] Urine Protein Urine Glucose (UA) Urine Ketones Urine Blood Urine Nitrite Ur Leukocyte Esterase Urine WBC (Auto) Urine RBC (Auto) 10/28/18 10/28/18 10/28/18 05:50 11:03 13:23 WBC RBC Hgb Hct MCV MCH MCHC RDW Plt Count Seg Neutrophils % Lymphocytes % Monocytes % Eosinophils % Basophils % Absolute Neutrophils Absolute Lymphocytes Absolute Monocytes Absolute Eosinophils Absolute Basophils Sodium Potassium 3.6 Chloride Carbon Dioxide Anion Gap BUN Creatinine Est GFR ( Amer) Est GFR (Non-Af Amer) Glucose Serum Osmolality Calcium Magnesium Total Bilirubin AST ALT Alkaline Phosphatase Total Protein Albumin Lipase Serum HCG, Qual Urine Color [place] YELLOW Urine Appearance CLOUDY SLIGHTLY-CLOUDY Urine pH 6.0 7.0 Ur Specific [place] 1.016 1.060 Urine Protein 100 H 30 H Urine Glucose (UA) NEGATIVE NEGATIVE Urine Ketones 80 H 80 H Urine Blood SMALL H NEGATIVE Urine Nitrite NEGATIVE NEGATIVE Ur Leukocyte Esterase MODERATE H MODERATE H Urine WBC (Auto) >182 57 Urine RBC (Auto) 1 7 Impressions: Abdomen/Pelvis CT 10/28/18 06:12 IMPRESSION: No acute findings. Fatty liver. Chronic pancreatitis with decrease in size of the pseudocyst near the pancreatic tail. No peripancreatic inflammatory changes to suggest acute pancreatitis. TECHNICAL DOCUMENTATION: Quality ID # 436: Final reports with documentation of one or more dose reduction techniques (e.g., Automated exposure control, adjustment of the mA and/or kV according to patient size, use of iterative reconstruction technique) copyright 2011 [employer]- All Rights Reserved Assessment and Plan - Diagnosis (1) Alcohol withdrawal Qualifiers: Complication of substance-induced condition: uncomplicated Qualified Code(s): F10.230 - Alcohol dependence with withdrawal, uncomplicated Is this a current diagnosis for this admission?: Yes Plan: Admit to IMCU, telemetry, IV PRN benzos, folic acid, thiamine, D5 NS, fall precaution, seizure precautions, aspiration precautions.
--- NOTE | 2018-10-28 16:09 | PDOC H&P ---
History of Present Illness Admission Date/PCP: 10/28/18 10:15 SYLVIA PAK MD History of Present Illness: DAVONTE ANTONY is a 27 year old female past medical history of EtOH abuse, tobacco abuse, alcoholic pancreatitis presented to ED complaining of nausea vomiting and generalized body aches. Has been having nausea with bilious, nonbloody vomiting and epigastric abdominal pain for the last one week. Since not having access to EtOH she has been using rubbing alcohol instead. She has not been able to tolerate any p.o. intake has not had a bowel movement however is passing flatus. Today she started to feel more anxious, and was feeling going into withdrawal and presented to ED. Denies any fever, shortness of breath, chest pain, numbness, tingling, focal weakness. Past Medical History Cardiac Medical History: Denies: Atrial Fibrillation, Coronary Artery Disease, DVT, Hyperlipidema, Hypertension, Pulmonary Embolism Pulmonary Medical History: Denies: Asthma, Chronic Obstructive Pulmonary Disease (COPD) Neurological Medical History: Reports: Migraine Denies: Seizures Endocrine Medical History: Denies: Diabetes Mellitus Type 1, Diabetes Mellitus Type 2, Hyperthyroidism, Hypothyroidism GI Medical History: Reports: Hepatitis - Prior liver enzyme elevations with exacerbations of chronic pancreatitis Denies: Cirrhosis, Crohn's Disease, Ulcerative Colitis Musculoskeltal Medical History: Denies: Arthritis, Gout Skin Medical History: Denies: Eczema, Psoriasis Psychiatric Medical History: Reports: Attention Deficit Hyperactivity Disorder, Depression Hematology: Denies: Anemia, Bleeding Tendencies Past Surgical History Past Surgical History: Reports: Tonsillectomy Social History Smoking Status: Never Smoker Frequency of Alcohol Use: Heavy Hx Recreational Drug Use: Yes Drugs: Marijuana Hx Prescription Drug Abuse: No Family History Family History: Hypertension, Other - Alcohol dependence, depression Parental Family History Reviewed: Yes Children Family History Reviewed: Yes Sibling(s) Family History Reviewed.: Yes Medication/Allergy Allergies/Adverse Reactions: No Known Allergies Allergy (Verified 10/07/17 11:03) Physical Exam Vital Signs: Temp Pulse Resp BP Pulse Ox 98.2 F 105 H 14 105/66 98 10/28/18 11:34 10/28/18 14:22 10/28/18 14:22 10/28/18 11:34 10/28/18 14:22 Intake & Output 10/27/18 10/28/18 10/29/18 06:59 06:59 06:59 Intake Total 1100 Balance 1100 Weight 70.8 kg Results Laboratory Results: 10/28/18 04:33 10/28/18 13:23 10/28/18 10/28/18 10/28/18 04:33 04:33 04:33 WBC 15.6 H RBC 4.69 Hgb 14.0 Hct 41.6 MCV 89 MCH 29.8 MCHC 33.7 RDW 14.8 H Plt Count 429 Seg Neutrophils % 85.5 H Lymphocytes % 8.0 L Monocytes % 5.6 Eosinophils % 0.0 Basophils % 0.9 Absolute Neutrophils 13.4 H Absolute Lymphocytes 1.2 Absolute Monocytes 0.9 Absolute Eosinophils 0.0 Absolute Basophils 0.1 Sodium 140.8 Potassium 3.0 L* Chloride 100 Carbon Dioxide 26 Anion Gap 15 BUN 4 L Creatinine 0.62 Est GFR ( Amer) > 60 Est GFR (Non-Af Amer) > 60 Glucose 199 H Serum Osmolality Calcium 9.5 Magnesium Total Bilirubin 0.5 AST 54 H ALT 28 Alkaline Phosphatase 85 Total Protein 7.9 Albumin 4.9 Lipase Serum HCG, Qual NEGATIVE Urine Color Urine Appearance Urine pH Ur Specific [place] Urine Protein Urine Glucose (UA) Urine Ketones Urine Blood Urine Nitrite Ur Leukocyte Esterase Urine WBC (Auto) Urine RBC (Auto) 10/28/18 10/28/18 10/28/18 04:33 04:33 04:33 WBC RBC Hgb Hct MCV MCH MCHC RDW Plt Count Seg Neutrophils % Lymphocytes % Monocytes % Eosinophils % Basophils % Absolute Neutrophils Absolute Lymphocytes Absolute Monocytes Absolute Eosinophils Absolute Basophils Sodium Potassium Chloride Carbon Dioxide Anion Gap BUN Creatinine Est GFR ( Amer) Est GFR (Non-Af Amer) Glucose Serum Osmolality 335 H Calcium Magnesium 2.4 H Total Bilirubin AST ALT Alkaline Phosphatase Total Protein Albumin Lipase 64.2 Serum HCG, Qual Urine Color Urine Appearance Urine pH Ur Specific [place] Urine Protein Urine Glucose (UA) Urine Ketones Urine Blood Urine Nitrite Ur Leukocyte Esterase Urine WBC (Auto) Urine RBC (Auto) 10/28/18 10/28/18 10/28/18 05:50 11:03 13:23 WBC RBC Hgb Hct MCV MCH MCHC RDW Plt Count Seg Neutrophils % Lymphocytes % Monocytes % Eosinophils % Basophils % Absolute Neutrophils Absolute Lymphocytes Absolute Monocytes Absolute Eosinophils Absolute Basophils Sodium Potassium 3.6 Chloride Carbon Dioxide Anion Gap BUN Creatinine Est GFR ( Amer) Est GFR (Non-Af Amer) Glucose Serum Osmolality Calcium Magnesium Total Bilirubin AST ALT Alkaline Phosphatase Total Protein Albumin Lipase Serum HCG, Qual Urine Color [place] YELLOW Urine Appearance CLOUDY SLIGHTLY-CLOUDY Urine pH 6.0 7.0 Ur Specific [place] 1.016 1.060 Urine Protein 100 H 30 H Urine Glucose (UA) NEGATIVE NEGATIVE Urine Ketones 80 H 80 H Urine Blood SMALL H NEGATIVE Urine Nitrite NEGATIVE NEGATIVE Ur Leukocyte Esterase MODERATE H MODERATE H Urine WBC (Auto) >182 57 Urine RBC (Auto) 1 7 Impressions: Abdomen/Pelvis CT 10/28/18 06:12 IMPRESSION: No acute findings. Fatty liver. Chronic pancreatitis with decrease in size of the pseudocyst near the pancreatic tail. No peripancreatic inflammatory changes to suggest acute pancreatitis. TECHNICAL DOCUMENTATION: Quality ID # [id number]: Final reports with documentation of one or more dose reduction techniques (e.g., Automated exposure control, adjustment of the mA and/or kV according to patient size, use of iterative reconstruction technique) copyright 2011 [employer]- All Rights Reserved Assessment and Plan - Diagnosis (1) Alcohol withdrawal Qualifiers: Complication of substance-induced condition: uncomplicated Qualified Code(s): F10.230 - Alcohol dependence with withdrawal, uncomplicated Is this a current diagnosis for this admission?: Yes Plan: Admit to IMCU, telemetry, IV PRN benzos, folic acid, thiamine, D5 NS, fall precaution, seizure precautions, aspiration precautions (2) Nausea & vomiting Is this a current diagnosis for this admission?: Yes Plan: Likely chronic pancreatitis. Antiemetics, IV fluids, monitor electrolytes and replace as needed. Lipase WNL. CT abdomen: No acute findings. Fatty liver. (3) Hypokalemia Is this a current diagnosis for this admission?: Yes Plan: Likely due to GI losses. Replace as needed. BMP tomorrow. No acute EKG change s. (4) UTI (urinary tract infection) Qualifiers: Urinary tract infection type: acute cystitis Hematuria presence: without hematuria Qualified Code(s): N30.00 - Acute cystitis without hematuria Is this a current diagnosis for this admission?: Yes Plan: Likely due to gram-negative rods including E. coli. Empiric IV antibiotics. Urine culture.
[2018-10-28] MEDS: FOLIC ACID/VITAMIN B COMP W-C CAPSULE PO SCH (16:11)
[2018-10-28] MEDS: MORPHINE SULFATE 10 MG/5 ML ORAL SOLUTION UDCUP PO PRN ×2 (16:11→20:43)
[2018-10-28] MEDS: ONDANSETRON HCL INJ/PF 4 MG/2 ML SDV IV PRN (16:11)
[2018-10-28] MEDS: CEFTRIAXONE SODIUM 1,000 MG in DEXTROSE 5%-WATER 50 ML IV SCH (16:16)
[2018-10-28] MEDS ORDERED: NORMAL SALINE 1000 ML 1,000 ML with POTASSIUM CHLORIDE 20 MEQ, MAGNESIUM SULFATE 8 MEQ,... IV SCH ×5 (18:00)
--- NOTE | 2018-10-28 18:36 | EKG REPORT ---
SEVERITY:- ABNORMAL ECG - SINUS TACHYCARDIA NONSPECIFIC T ABNORMALITIES, DIFFUSE LEADS : Confirmed by: Liz Cespedes 28-Oct-2018 18:35:26
[2018-10-28] MEDS: FAMOTIDINE 20 MG TABLET PO SCH (22:20)
[2018-10-29] MEDS: OXYCODONE-ACETAMINOPHEN 5-325 MG TABLET PO PRN ×2 (00:56→09:32)
[2018-10-29] MEDS: MORPHINE SULFATE 10 MG/5 ML ORAL SOLUTION UDCUP PO PRN ×2 (03:55→17:53)
[2018-10-29 05:38] LABS: ABSOLUTE EOSINOPHILS # (AUTO) 0.1 10^3/uL (0.0-0.6); ABSOLUTE LYMPHOCYTES (AUTO) 1.1 10^3/uL (0.5-4.7); ABSOLUTE MONOCYTES (AUTO) 0.3 10^3/uL (0.1-1.4); ABSOLUTE NEUT (AUTO) 2.6 10^3/uL (1.7-8.2); BASOPHILS % (AUTO) 1.1 % (0-2); HEMATOCRIT 38.1 % (36.0-47.0); HEMOGLOBIN 12.6 g/dL (12.0-15.5); LYMPHOCYTES % (AUTO) 25.8 % (13-45); MEAN CORPUSCULAR HGB CONC 33.1 g/dL (32.0-36.0); MEAN CORPUSCULAR VOLUME 91 fl (80-97); MONOCYTES % (AUTO) 8.1 % (3-13); PLATELET COUNT 225 10^3/uL (150-450); RED CELL DISTRIBUTION WIDTH 14.8 % (11.5-14.0); TOTAL CELLS COUNTED % (AUTO) 100 %; WHITE BLOOD COUNT 4.2 10^3/uL (4.0-10.5)
[2018-10-29 05:54] LABS: ANION GAP 8 (5-19); CALCIUM 8.7 mg/dL (8.4-10.2); CARBON DIOXIDE 23 mmol/L (22-30); CHLORIDE 110 mmol/L (98-107); GLUCOSE 129 mg/dL (75-110); SODIUM 140.5 mmol/L (137-145)
[2018-10-29 05:56] LABS: BLOOD UREA NITROGEN < 2 mg/dL (7-20)
[2018-10-29] MEDS: HEPARIN SOD (PORCINE) 5,000 UNIT/ML 1 ML SYRINGE SUBCUT SCH ×3 (05:56→22:00)
[2018-10-29] MEDS: FAMOTIDINE 20 MG TABLET PO SCH ×2 (09:32→21:58)
[2018-10-29] MEDS: LORAZEPAM INJ 2 MG/1 ML VIAL IV PRN ×3 (09:32→17:53)
[2018-10-29] MEDS: THIAMINE HCL 100 MG TABLET PO SCH (09:32)
--- NOTE | 2018-10-29 11:34 | PDOC PROGRESS REPORT ---
Subjective Progress Note for:: 10/29/18 Subjective:: Seen at bedside along with nursing. She is tearful at times and states that it is her fault and she is a burden to everybody. She does admit to drinking a lot of alcohol prior to admission. States that she has been doing this quite often. Does not recall what kind of alcohol she was drinking or how much. States she felt a little bit anxious and then she feels that all her fall that this is happening. She is asking for more pain meds-states that Dilaudid works best for her. I told her that she is currently on medication for possible alcohol withdrawal and that Dilaudid is not the appropriate medication in the settings. She does have other pain meds ordered in her regimen but she wants to still try Dilaudid. She denies homicidal or suicidal ideations at this time. Reason For Visit: ETOH INTOXICATION,N/V,HYPOKALEMIA Physical Exam Vital Signs: Temp Pulse Resp BP Pulse Ox 98.2 F 98 15 126/76 H 100 10/29/18 07:48 10/29/18 09:39 10/29/18 09:39 10/29/18 07:48 10/29/18 09:39 Intake & Output 10/28/18 10/29/18 10/30/18 06:59 06:59 06:59 Intake Total 3713 1000 Output Total 500 Balance 3213 1000 Weight 156 lb 1.396 oz 169 lb 5.04 oz General appearance: PRESENT: no acute distress, other - Anxious and tearful Head exam: PRESENT: atraumatic, normocephalic Eye exam: PRESENT: EOMI. ABSENT: scleral icterus Ear exam: PRESENT: normal external ear exam Mouth exam: PRESENT: moist Respiratory exam: PRESENT: clear to auscultation vane, symmetrical Cardiovascular exam: PRESENT: +S1, +S2 GI/Abdominal exam: PRESENT: normal bowel sounds, soft. ABSENT: tenderness Neurological exam: PRESENT: alert, awake, oriented to person, oriented to place, oriented to time, CN II-XII grossly intact Skin exam: PRESENT: dry, warm Results Laboratory Results: 10/29/18 04:30 10/29/18 04:30 10/28/18 10/28/18 10/29/18 11:03 13:23 04:30 WBC 4.2 RBC 4.20 Hgb 12.6 Hct 38.1 MCV 91 MCH 30.0 MCHC 33.1 RDW 14.8 H Plt Count 225 Seg Neutrophils % 63.0 Lymphocytes % 25.8 Monocytes % 8.1 Eosinophils % 2.0 Basophils % 1.1 Absolute Neutrophils 2.6 Absolute Lymphocytes 1.1 Absolute Monocytes 0.3 Absolute Eosinophils 0.1 Absolute Basophils 0.0 Sodium Potassium 3.6 Chloride Carbon Dioxide Anion Gap BUN Creatinine Est GFR ( Amer) Est GFR (Non-Af Amer) Glucose Calcium Urine Color YELLOW Urine Appearance SLIGHTLY-CLOUDY Urine pH 7.0 Ur Specific [place] 1.060 Urine Protein 30 H Urine Glucose (UA) NEGATIVE Urine Ketones 80 H Urine Blood NEGATIVE Urine Nitrite NEGATIVE Ur Leukocyte Esterase MODERATE H Urine WBC (Auto) 57 Urine RBC (Auto) 7 10/29/18 04:30 WBC RBC Hgb Hct MCV MCH MCHC RDW Plt Count Seg Neutrophils % Lymphocytes % Monocytes % Eosinophils % Basophils % Absolute Neutrophils Absolute Lymphocytes Absolute Monocytes Absolute Eosinophils Absolute Basophils Sodium 140.5 Potassium 4.0 Chloride 110 H Carbon Dioxide 23 Anion Gap 8 BUN < 2 L Creatinine 0.56 Est GFR ( Amer) > 60 Est GFR (Non-Af Amer) > 60 Glucose 129 H Calcium 8.7 Urine Color Urine Appearance Urine pH Ur Specific [place] Urine Protein Urine Glucose (UA) Urine Ketones Urine Blood Urine Nitrite Ur Leukocyte Esterase Urine WBC (Auto) Urine RBC (Auto) Impressions: Abdomen/Pelvis CT 10/28/18 06:12 IMPRESSION: No acute findings. Fatty liver. Chronic pancreatitis with decrease in size of the pseudocyst near the pancreatic tail. No peripancreatic inflammatory changes to suggest acute pancreatitis. TECHNICAL DOCUMENTATION: Quality ID # 436: Final reports with documentation of one or more dose reduction techniques (e.g., Automated exposure control, adjustment of the mA and/or kV according to patient size, use of iterative reconstruction technique) copyright 2011 [employer]- All Rights Reserved Assessment and Plan - Diagnosis (1) Alcohol withdrawal Qualifiers: Complication of substance-induced condition: uncomplicated Qualified Code(s): F10.230 - Alcohol dependence with withdrawal, uncomplicated Is this a current diagnosis for this admission?: Yes (2) Alcohol abuse Is this a current diagnosis for this admission?: Yes (3) Nausea & vomiting Is this a current diagnosis for this admission?: Yes (4) Obesity (BMI 30.0-34.9) Is this a current diagnosis for this admission?: Yes (5) UTI (urinary tract infection) Qualifiers: Urinary tract infection type: acute cystitis Hematuria presence: without hematuria Qualified Code(s): N30.00 - Acute cystitis without hematuria Is this a current diagnosis for this admission?: Yes - Plan Summary Plan Summary: Alcohol withdrawal-unfortunately she is unable to tell me how much alcohol she had taken prior to admission. She seems to be very tearful and anxious at this time. She is currently on as needed Ativan only. I will add some Valium to her regimen and she will start with 5 mg 3 times a day and will taper down as needed. She is asking for Dilaudid which I do not recommend at this time. I did ask her about getting a psych consult but she is indecisive about it but I think she needs it as she expressed some concerns of depression and feelings of guilt as it is her fault that she is in here. I have asked nursing to see and talk to her again about getting psych consult. At this time she remains stable with no suicidal or homicidal ideations. UTI-continue Rocephin- unfortunately I do not see any urine culture sent and she is already on antibiotics so we will treat her for 3 to 5 days and discontinue. She remains asymptomatic. History of alcohol abuse-I had a long discussion with her about cessation and seeking help. She says she will think about it. Obesity-noted
[2018-10-29] MEDS: DIAZEPAM 5 MG TABLET PO SCH ×2 (12:39→21:58)
[2018-10-29] MEDS: CEFTRIAXONE SODIUM 1,000 MG in DEXTROSE 5%-WATER 50 ML IV SCH (16:39)
[2018-10-29] MEDS: FOLIC ACID/VITAMIN B COMP W-C CAPSULE PO SCH (16:39)
--- NOTE | 2018-10-29 18:41 | PSYCHOLOGICAL NOTE ---
Psych Note - Psych Note Date seen by psych provider: 10/29/18 Psych Note: Presenting Problem: Depression, Bipolar, off medications, Hx alcohol use with alcohol pancreatitis, been drinking rubbing alcohol. Patient came in to the ED on 10/28/18 for epigastric pain and vomiting, she was tachycardic. She was subsequently admitted to hospitalist services same day for alcohol withdrawal, nausea and vomiting, hypokalemia and UTI. Psychiatric medications being administered include: Ativan 1MG IV Q2H PRN (given at 0932 today) and Restoril 7.5MG QHS PRN. She was seen by Behavioral Health previously on 12/11/16 for alcohol use (alcohol dependence, alcohol pancreatitis), MH (Depression, SIB via cutting) and noncompliance, was discharged and recommended to follow up with dial diagnosis MH/SA treatment. She was seen 08/25/18 in ED with subsequent admission for seizure due to alcohol withdrawal, acute alcohol hepatitis, hypmagnesemia, chronic alcohol pancreatitis and primary dysthymia early onset. Today she presented with depressed mood and flat affect. She stated "I am basically a failure, there;s not much else to talk about, I am kind of a burden, there is no point in existing, this has been my 3 year mantra, I have always thought this way." She commented "I never attempted SI that would just make me more of a failure." She stated she was on medication when she was age 14. She noted she tried going to [facility] for follow up "but they just want to push Methadone." Diagnosis: Alcohol Use Disorder, Severe Unspecified Depressive Disorder Medication recommendations made by the psychiatric medical provider, Dr. Jose MD., includes: Discontinue Restoril 7.5MG at night as needed for sleep Add Effexor 37.5MG twice a day for depression/increase energy/focus/to curb alcohol cravings Add Buspar 10MG twice a day for anxiety/calming effect/depression/sleep Impression/Plan: Patient is cleared from acute psychiatric services. She denied SI/HI and no observed psychosis. She has a problem with alcohol and did present with depressed mood/flat affect. Provided medication recommendations to address these issues. When she is ready for discharge behavioral health can arrange outpatient MH follow up appointment. Consulted with Dr. Rogers regarding the management and care of patient. Attending Hospitalist made aware of recommendations.
[2018-10-29] MEDS: KETOROLAC TROMETHAMINE INJ/PF 30 MG/1 ML SDV IV PRN (21:59)
[2018-10-29] MEDS: ONDANSETRON HCL INJ/PF 4 MG/2 ML SDV IV PRN (22:01)
[2018-10-30] MEDS: OXYCODONE-ACETAMINOPHEN 5-325 MG TABLET PO PRN ×2 (05:48→13:06)
[2018-10-30] MEDS: DIAZEPAM 5 MG TABLET PO SCH ×3 (05:48→21:53)
[2018-10-30] MEDS: HEPARIN SOD (PORCINE) 5,000 UNIT/ML 1 ML SYRINGE SUBCUT SCH ×3 (05:48→21:53)
[2018-10-30 06:05] LABS: ABSOLUTE EOSINOPHILS # (AUTO) 0.2 10^3/uL (0.0-0.6); ABSOLUTE LYMPHOCYTES (AUTO) 0.8 10^3/uL (0.5-4.7); ABSOLUTE MONOCYTES (AUTO) 0.3 10^3/uL (0.1-1.4); BASOPHILS % (AUTO) 0.8 % (0-2); EOSINOPHILS % (AUTO) 6.3 % (0-6); HEMATOCRIT 40.7 % (36.0-47.0); HEMOGLOBIN 13.6 g/dL (12.0-15.5); LYMPHOCYTES % (AUTO) 24.8 % (13-45); MEAN CORPUSCULAR HEMOGLOBIN 29.9 pg (27.0-33.4); MEAN CORPUSCULAR HGB CONC 33.4 g/dL (32.0-36.0); MEAN CORPUSCULAR VOLUME 90 fl (80-97); MONOCYTES % (AUTO) 8.7 % (3-13); PLATELET COUNT 232 10^3/uL (150-450); RED BLOOD COUNT 4.54 10^6/uL (3.72-5.28); RED CELL DISTRIBUTION WIDTH 14.4 % (11.5-14.0); SEGMENTED NEUTROPHILS % (AUTO) 59.4 % (42-78); TOTAL CELLS COUNTED % (AUTO) 100 %; WHITE BLOOD COUNT 3.4 10^3/uL (4.0-10.5)
[2018-10-30 06:21] LABS: ANION GAP 10 (5-19); BLOOD UREA NITROGEN 3 mg/dL (7-20); CALCIUM 9.7 mg/dL (8.4-10.2); CARBON DIOXIDE 27 mmol/L (22-30); CHLORIDE 104 mmol/L (98-107); GLUCOSE 105 mg/dL (75-110); POTASSIUM 3.6 mmol/L (3.6-5.0); SODIUM 141.2 mmol/L (137-145)
[2018-10-30] MEDS: THIAMINE HCL 100 MG TABLET PO SCH (09:31)
[2018-10-30] MEDS: VENLAFAXINE HCL 37.5 MG CAP.SR.24H PO SCH ×2 (09:31→21:53)
[2018-10-30] MEDS: BUSPIRONE HCL 10 MG TABLET PO SCH ×2 (09:31→22:00)
[2018-10-30] MEDS: FAMOTIDINE 20 MG TABLET PO SCH ×2 (09:31→21:53)
[2018-10-30] MEDS: LORAZEPAM INJ 2 MG/1 ML VIAL IV PRN ×3 (09:34→17:55)
--- NOTE | 2018-10-30 12:17 | PDOC PROGRESS REPORT ---
Subjective Progress Note for:: 10/30/18 Subjective:: Saw patient this morning along with her nurse at bedside. She seems to be a little more calm and less restless today. Spoke to her about her medications. I told her that I spoke to the psychiatry team in the hospital yesterday and they had advised starting on BuSpar and Effexor or and I have added that to her regimen today. She tells me that she will try it but she is not sure if this will work. She herself also feels a little bit better after her increased her Valium yesterday. Otherwise she has no other concerns or complaints. She continues to deny suicidal or homicidal ideations. Although she still states that she feels bad that this is all happening because of her. I discussed with her about her alcohol abuse and the need for cessation. Reason For Visit: ETOH INTOXICATION,N/V,HYPOKALEMIA Physical Exam Vital Signs: Temp Pulse Resp BP Pulse Ox 97.5 F 101 H 16 126/85 H 99 10/30/18 08:58 10/30/18 09:00 10/30/18 09:00 10/30/18 08:58 10/30/18 09:00 Intake & Output 10/29/18 10/30/18 10/31/18 06:59 06:59 06:59 Intake Total 3713 2836 Output Total 500 Balance 3213 2836 Weight 169 lb 5.04 oz 166 lb 0.129 oz General appearance: PRESENT: no acute distress Head exam: PRESENT: atraumatic, normocephalic Eye exam: PRESENT: EOMI. ABSENT: scleral icterus Ear exam: PRESENT: normal external ear exam Mouth exam: PRESENT: moist, tongue midline Respiratory exam: PRESENT: clear to auscultation vane, symmetrical Cardiovascular exam: PRESENT: +S1, +S2 Results Laboratory Results: 10/30/18 05:29 10/30/18 05:29 10/30/18 10/30/18 05:29 05:29 WBC 3.4 L RBC 4.54 Hgb 13.6 Hct 40.7 MCV 90 MCH 29.9 MCHC 33.4 RDW 14.4 H Plt Count 232 Seg Neutrophils % 59.4 Lymphocytes % 24.8 Monocytes % 8.7 Eosinophils % 6.3 H Basophils % 0.8 Absolute Neutrophils 2.0 Absolute Lymphocytes 0.8 Absolute Monocytes 0.3 Absolute Eosinophils 0.2 Absolute Basophils 0.0 Sodium 141.2 Potassium 3.6 Chloride 104 Carbon Dioxide 27 Anion Gap 10 BUN 3 L Creatinine 0.57 Est GFR ( Amer) > 60 Est GFR (Non-Af Amer) > 60 Glucose 105 Calcium 9.7 Impressions: Abdomen/Pelvis CT 10/28/18 06:12 IMPRESSION: No acute findings. Fatty liver. Chronic pancreatitis with decrease in size of the pseudocyst near the pancreatic tail. No peripancreatic inflammatory changes to suggest acute pancreatitis. TECHNICAL DOCUMENTATION: Quality ID # [id number]: Final reports with documentation of one or more dose reduction techniques (e.g., Automated exposure control, adjustment of the mA and/or kV according to patient size, use of iterative reconstruction technique) copyright 2011 [email or web address]- All Rights Reserved Assessment and Plan - Diagnosis (1) Alcohol withdrawal Qualifiers: Complication of substance-induced condition: uncomplicated Qualified Code(s): F10.230 - Alcohol dependence with withdrawal, uncomplicated Is this a current diagnosis for this admission?: Yes (2) Alcohol abuse Is this a current diagnosis for this admission?: Yes (3) Nausea & vomiting Is this a current diagnosis for this admission?: Yes (4) Obesity (BMI 30.0-34.9) Is this a current diagnosis for this admission?: Yes (5) UTI (urinary tract infection) Qualifiers: Urinary tract infection type: acute cystitis Hematuria presence: without hematuria Qualified Code(s): N30.00 - Acute cystitis without hematuria Is this a current diagnosis for this admission?: Yes - Plan Summary Plan Summary: Alcohol withdrawal-doing much better today after I increased her Valium to 5 mg 3 times daily. I also spoke with psychiatry team in the hospital yesterday and that they recommended starting on BuSpar and Effexor which was also started. She still seems a little depressed but otherwise has no suicidal or homicidal ideations. We will continue to monitor for any anxiety or seizure activity given that she may be withdrawing in the next 24 to 48 hours. UTI-continue Rocephin-day 3-most likely will discontinue after today. Unfortun ately I do not see any urine culture sent and she is already on antibiotics. She remains asymptomatic. History of alcohol abuse-I had a long discussion with her about cessation and seeking help. She says she will think about it. See plan for alcohol withdrawal Obesity-noted
[2018-10-30] MEDS: FOLIC ACID/VITAMIN B COMP W-C CAPSULE PO SCH (16:14)
[2018-10-30] MEDS: CEFTRIAXONE SODIUM 1,000 MG in DEXTROSE 5%-WATER 50 ML IV SCH (16:14)
[2018-10-30] MEDS: KETOROLAC TROMETHAMINE INJ/PF 30 MG/1 ML SDV IV PRN (22:01)
[2018-10-31] MEDS: HEPARIN SOD (PORCINE) 5,000 UNIT/ML 1 ML SYRINGE SUBCUT SCH ×3 (05:11→21:19)
[2018-10-31] MEDS: DIAZEPAM 5 MG TABLET PO SCH ×3 (05:13→21:17)
[2018-10-31 06:26] LABS: ABSOLUTE EOSINOPHILS # (AUTO) 0.5 10^3/uL (0.0-0.6); ABSOLUTE MONOCYTES (AUTO) 0.4 10^3/uL (0.1-1.4); ABSOLUTE NEUT (AUTO) 1.8 10^3/uL (1.7-8.2); BASOPHILS % (AUTO) 0.8 % (0-2); EOSINOPHILS % (AUTO) 12.3 % (0-6); HEMATOCRIT 37.7 % (36.0-47.0); HEMOGLOBIN 12.8 g/dL (12.0-15.5); LYMPHOCYTES % (AUTO) 27.6 % (13-45); MEAN CORPUSCULAR HEMOGLOBIN 30.1 pg (27.0-33.4); MEAN CORPUSCULAR HGB CONC 33.9 g/dL (32.0-36.0); MEAN CORPUSCULAR VOLUME 89 fl (80-97); MONOCYTES % (AUTO) 9.9 % (3-13); PLATELET COUNT 202 10^3/uL (150-450); RED BLOOD COUNT 4.24 10^6/uL (3.72-5.28); RED CELL DISTRIBUTION WIDTH 14.1 % (11.5-14.0); SEGMENTED NEUTROPHILS % (AUTO) 49.4 % (42-78); TOTAL CELLS COUNTED % (AUTO) 100 %; WHITE BLOOD COUNT 3.7 10^3/uL (4.0-10.5)
[2018-10-31 07:07] LABS: ANION GAP 10 (5-19); BLOOD UREA NITROGEN 6 mg/dL (7-20); CALCIUM 9.6 mg/dL (8.4-10.2); CARBON DIOXIDE 26 mmol/L (22-30); CHLORIDE 102 mmol/L (98-107); GLUCOSE 113 mg/dL (75-110); POTASSIUM 3.9 mmol/L (3.6-5.0); SODIUM 138.2 mmol/L (137-145)
[2018-10-31] MEDS: BUSPIRONE HCL 10 MG TABLET PO SCH ×2 (09:32→21:17)
[2018-10-31] MEDS: FAMOTIDINE 20 MG TABLET PO SCH ×2 (09:32→21:17)
[2018-10-31] MEDS: VENLAFAXINE HCL 37.5 MG CAP.SR.24H PO SCH ×2 (09:32→21:18)
[2018-10-31] MEDS: THIAMINE HCL 100 MG TABLET PO SCH (09:32)
[2018-10-31] MEDS: LORAZEPAM INJ 2 MG/1 ML VIAL IV PRN ×3 (09:37→21:22)
--- NOTE | 2018-10-31 14:44 | PDOC PROGRESS REPORT ---
Subjective Progress Note for:: 10/31/18 Subjective:: Book with patient this morning. Her nurse in the room. Patient states that she still feels the same. I asked her that if she feeling less anxious today and she says yes. I asked if she is having a better day than yesterday and she states yes. This time she has no chest pain, shortness of breath, abdominal pain, nausea vomiting or dizziness. She does complain of still having generalized pain all over. Also having some abdominal aching no pain. Nandini about possible discharge tomorrow and she is inclined. Reason For Visit: ETOH INTOXICATION,N/V,HYPOKALEMIA Physical Exam Vital Signs: Temp Pulse Resp BP Pulse Ox 97.9 F 69 16 131/95 H 98 10/31/18 11:57 10/31/18 11:57 10/31/18 11:57 10/31/18 11:57 10/31/18 11:57 Intake & Output 10/30/18 10/31/18 11/01/18 06:59 06:59 06:59 Intake Total 2836 1355 474 Balance 2836 1355 474 Weight 166 lb 0.129 oz 165 lb 5.547 oz General appearance: PRESENT: no acute distress Head exam: PRESENT: atraumatic, normocephalic Eye exam: PRESENT: EOMI. ABSENT: scleral icterus Ear exam: PRESENT: normal external ear exam Mouth exam: PRESENT: moist, tongue midline Respiratory exam: PRESENT: clear to auscultation vane, symmetrical Cardiovascular exam: PRESENT: +S1, +S2 Pulses: PRESENT: +2 pedal pulses bilateral GI/Abdominal exam: PRESENT: normal bowel sounds, soft. ABSENT: tenderness Neurological exam: PRESENT: alert, awake, oriented to person, oriented to place, oriented to time, oriented to situation, CN II-XII grossly intact Results Laboratory Results: 10/31/18 06:08 10/31/18 06:08 10/31/18 10/31/18 06:08 06:08 WBC 3.7 L RBC 4.24 Hgb 12.8 Hct 37.7 MCV 89 MCH 30.1 MCHC 33.9 RDW 14.1 H Plt Count 202 Seg Neutrophils % 49.4 Lymphocytes % 27.6 Monocytes % 9.9 Eosinophils % 12.3 H Basophils % 0.8 Absolute Neutrophils 1.8 Absolute Lymphocytes 1.0 Absolute Monocytes 0.4 Absolute Eosinophils 0.5 Absolute Basophils 0.0 Sodium 138.2 Potassium 3.9 Chloride 102 Carbon Dioxide 26 Anion Gap 10 BUN 6 L Creatinine 0.57 Est GFR ( Amer) > 60 Est GFR (Non-Af Amer) > 60 Glucose 113 H Calcium 9.6 Impressions: Abdomen/Pelvis CT 10/28/18 06:12 IMPRESSION: No acute findings. Fatty liver. Chronic pancreatitis with decrease in size of the pseudocyst near the pancreatic tail. No peripancreatic inflammatory changes to suggest acute pancreatitis. TECHNICAL DOCUMENTATION: Quality ID # 436: Final reports with documentation of one or more dose reduction techniques (e.g., Automated exposure control, adjustment of the mA and/or kV according to patient size, use of iterative reconstruction technique) copyright 2011 [employer]- All Rights Reserved Assessment and Plan - Diagnosis (1) Alcohol withdrawal Qualifiers: Complication of substance-induced condition: uncomplicated Qualified Code(s): F10.230 - Alcohol dependence with withdrawal, uncomplicated Is this a current diagnosis for this admission?: Yes (2) Alcohol abuse Is this a current diagnosis for this admission?: Yes (3) Nausea & vomiting Is this a current diagnosis for this admission?: Yes (4) Obesity (BMI 30.0-34.9) Is this a current diagnosis for this admission?: Yes (5) UTI (urinary tract infection) Qualifiers: Urinary tract infection type: acute cystitis Hematuria presence: without hematuria Qualified Code(s): N30.00 - Acute cystitis without hematuria Is this a current diagnosis for this admission?: Yes - Plan Summary Plan Summary: Alcohol withdrawal-she is doing much better now with her Valium, Ativan as needed and her psych meds that were added by the behavioral team. Continue with the BuSpar and Effexor. Hoping that she can be discharged on a taper of Valium for a few days. And she can be continue with her BuSpar and Effexor with a follow-up with psychiatry. She also should consider therapy and counseling for her history of alcohol abuse. She continues to deny any suicidal or homicidal ideations at this time. UTI-completed 3 days of IV Rocephin. Fortunately no urine cultures were sent on admission. History of alcohol abuse-I had a long discussion with her about cessation and seeking help. She says she will think about it. See plan for alcohol withdrawal Obesity-noted
[2018-10-31] MEDS: FOLIC ACID/VITAMIN B COMP W-C CAPSULE PO SCH (16:19)
[2018-10-31] MEDS: KETOROLAC TROMETHAMINE INJ/PF 30 MG/1 ML SDV IV PRN (16:21)
[2018-11-01] MEDS: HEPARIN SOD (PORCINE) 5,000 UNIT/ML 1 ML SYRINGE SUBCUT SCH ×3 (05:56→22:07)
[2018-11-01] MEDS: DIAZEPAM 5 MG TABLET PO SCH ×3 (05:58→22:07)
[2018-11-01] MEDS: OXYCODONE-ACETAMINOPHEN 5-325 MG TABLET PO PRN ×3 (07:53→22:13)
[2018-11-01] MEDS: THIAMINE HCL 100 MG TABLET PO SCH (09:09)
[2018-11-01] MEDS: FOLIC ACID 1 MG TABLET PO SCH (09:09)
[2018-11-01] MEDS: VENLAFAXINE HCL 37.5 MG CAP.SR.24H PO SCH ×2 (09:09→22:08)
[2018-11-01] MEDS: FAMOTIDINE 20 MG TABLET PO SCH ×2 (09:09→22:07)
[2018-11-01] MEDS: BUSPIRONE HCL 10 MG TABLET PO SCH ×2 (09:09→22:07)
[2018-11-01] MEDS: KETOROLAC TROMETHAMINE INJ/PF 30 MG/1 ML SDV IV PRN ×2 (09:13→18:20)
[2018-11-01] MEDS ORDERED: (PENDING PHARMACY ID) (Thiamine Mononitrate [Vitamin B-1] 100 MG) PO SCH (10:00)
--- NOTE | 2018-11-01 10:41 | PDOC PROGRESS REPORT ---
Subjective Progress Note for:: 11/01/18 Subjective:: 27 year old female past medical history of EtOH abuse, tobacco abuse, alcoholic pancreatitis presented to ED complaining of nausea vomiting and generalized body aches. Has been having nausea with bilious, nonbloody vomiting and epigastric abdominal pain for the last one week. Since not having access to EtOH she has been using rubbing alcohol instead. She has not been able to tolerate any p.o. intake has not had a bowel movement however is passing flatus. Today she started to feel more anxious, and was feeling going into withdrawal and presented to ED. Denies any fever, shortness of breath, chest pain, numbness, tingling, focal weakness. 11/01/[id number]-smxp-old female admitted with alcohol abuse and alcoholic pancreatitis. Nausea vomiting generalized body aches at the time of presentation. She is doing well. No acute events in the last 24 hours. Afebrile. Reason For Visit: ETOH INTOXICATION,N/V,HYPOKALEMIA Physical Exam Vital Signs: Temp Pulse Resp BP Pulse Ox 98.4 F 67 16 128/99 H 97 10/31/18 16:29 11/01/18 07:00 10/31/18 16:29 10/31/18 16:29 10/31/18 16:29 Intake & Output 10/31/18 11/01/18 11/02/18 06:59 06:59 06:59 Intake Total 1355 948 Balance 1355 948 Weight 75 kg 73.9 kg General appearance: PRESENT: no acute distress, obese Head exam: PRESENT: atraumatic Eye exam: PRESENT: PERRLA Ear exam: PRESENT: normal external ear exam Mouth exam: PRESENT: moist, tongue midline Teeth exam: PRESENT: poor dentation Neck exam: ABSENT: carotid bruit, JVD, lymphadenopathy, thyromegaly Respiratory exam: PRESENT: clear to auscultation vane. ABSENT: rales, rhonchi, wheezes Cardiovascular exam: PRESENT: RRR. ABSENT: diastolic murmur, rubs, systolic murmur GI/Abdominal exam: PRESENT: normal bowel sounds, soft. ABSENT: distended, guarding, mass, organolmegaly, rebound, tenderness Rectal exam: PRESENT: deferred Extremities exam: PRESENT: full ROM. ABSENT: calf tenderness, clubbing, pedal edema Neurological exam: PRESENT: alert, awake, oriented to person, oriented to place, oriented to time, oriented to situation, CN II-XII grossly intact. ABSENT: motor sensory deficit Psychiatric exam: PRESENT: appropriate affect, normal mood. ABSENT: homicidal ideation, suicidal ideation Results Laboratory Results: 10/31/18 06:08 10/31/18 06:08 Impressions: Abdomen/Pelvis CT 10/28/18 06:12 IMPRESSION: No acute findings. Fatty liver. Chronic pancreatitis with decrease in size of the pseudocyst near the pancreatic tail. No peripancreatic inflammatory changes to suggest acute pancreatitis. TECHNICAL DOCUMENTATION: Quality ID # [id number]: Final reports with documentation of one or more dose reduction techniques (e.g., Automated exposure control, adjustment of the mA and/or kV according to patient size, use of iterative reconstruction technique) copyright 2011 [employer]- All Rights Reserved Assessment and Plan - Diagnosis (1) Alcohol abuse Is this a current diagnosis for this admission?: Yes Plan: 11/01/2018-patient was admitted with history of alcohol abuse and alcohol withdrawal she is receiving IV Ativan as needed no acute events in the last 24 hours. Patient is afebrile. Psych recommendations are implemented. (2) Alcohol withdrawal Qualifiers: Complication of substance-induced condition: uncomplicated Qualified Code(s): F10.230 - Alcohol dependence with withdrawal, uncomplicated Is this a current diagnosis for this admission?: Yes Plan: Admit to IMCU, telemetry, IV PRN benzos, folic acid, thiamine, D5 NS, fall precaution, seizure precautions, aspiration precautions 11/01/2018-patient was admitted with alcohol abuse and to look for alcohol withdrawal symptoms watch for DTs. Presently off the IV fluids. Received IV thiamine and folic acid. She is n.p.o. and benzodiazepines. Patient is comfortably in the bed this morning communicating well. Patient is requesting for alcohol rehab arrangements. (3) Nausea & vomiting Is this a current diagnosis for this admission?: Yes Plan: Likely chronic pancreatitis. Antiemetics, IV fluids, monitor electrolytes and replace as needed. Lipase WNL. CT abdomen: No acute findings. Fatty liver. 11/01/2018-patient was admitted with nausea and vomiting's most likely secondary to acute on chronic pancreatitis. Patient is off the IV fluids. No more nausea and vomiting's are reported. (4) UTI (urinary tract infection) Qualifiers: Urinary tract infection type: acute cystitis Hematuria presence: without hematuria Qualified Code(s): N30.00 - Acute cystitis without hematuria Is this a current diagnosis for this admission?: Yes Plan: Likely due to gram-negative rods including E. coli. Empiric IV antibiotics. Urine culture. 11/01/2018-patient was admitted with UTI treated with antibiotics unfortunately no urine culture was sent. (5) Hypokalemia Is this a current diagnosis for this admission?: Yes Plan: Likely due to GI losses. Replace as needed. BMP tomorrow. No acute EKG changes. 11/01/2018-patient was admitted with hypokalemia most likely secondary to nausea and vomiting's potassium supplementation was given during this hospital stay latest potassium is 4.0 stable. - Time Time Spent with patient: 15-24 minutes Smoking Cessation Education: over 10 minutes Medications reviewed and adjusted accordingly: Yes Anticipated discharge: Home
[2018-11-01] MEDS: LORAZEPAM INJ 2 MG/1 ML VIAL IV PRN ×3 (11:15→22:07)
[2018-11-01] MEDS: FOLIC ACID/VITAMIN B COMP W-C CAPSULE PO SCH (15:45)
[2018-11-02] MEDS: OXYCODONE-ACETAMINOPHEN 5-325 MG TABLET PO PRN ×3 (04:00→12:48)
[2018-11-02] MEDS: LORAZEPAM INJ 2 MG/1 ML VIAL IV PRN (04:00)
[2018-11-02] MEDS: HEPARIN SOD (PORCINE) 5,000 UNIT/ML 1 ML SYRINGE SUBCUT SCH ×2 (05:11→13:03)
[2018-11-02] MEDS: DIAZEPAM 5 MG TABLET PO SCH ×2 (05:29→13:03)
[2018-11-02 05:50] LABS: ABSOLUTE EOSINOPHILS # (AUTO) 0.5 10^3/uL (0.0-0.6); ABSOLUTE LYMPHOCYTES (AUTO) 1.9 10^3/uL (0.5-4.7); ABSOLUTE MONOCYTES (AUTO) 0.5 10^3/uL (0.1-1.4); ABSOLUTE NEUT (AUTO) 2.5 10^3/uL (1.7-8.2); BASOPHILS % (AUTO) 0.4 % (0-2); EOSINOPHILS % (AUTO) 9.1 % (0-6); HEMATOCRIT 36.9 % (36.0-47.0); HEMOGLOBIN 12.5 g/dL (12.0-15.5); LYMPHOCYTES % (AUTO) 35.6 % (13-45); MEAN CORPUSCULAR HEMOGLOBIN 30.3 pg (27.0-33.4); MEAN CORPUSCULAR HGB CONC 33.9 g/dL (32.0-36.0); MEAN CORPUSCULAR VOLUME 89 fl (80-97); MONOCYTES % (AUTO) 8.3 % (3-13); PLATELET COUNT 240 10^3/uL (150-450); RED BLOOD COUNT 4.14 10^6/uL (3.72-5.28); RED CELL DISTRIBUTION WIDTH 14.4 % (11.5-14.0); SEGMENTED NEUTROPHILS % (AUTO) 46.6 % (42-78); TOTAL CELLS COUNTED % (AUTO) 100 %; WHITE BLOOD COUNT 5.5 10^3/uL (4.0-10.5)
[2018-11-02 06:08] LABS: ALANINE AMINOTRANSFERASE 48 U/L (9-52); ALBUMIN 4.1 g/dL (3.5-5.0); ALKALINE PHOSPHATASE 56 U/L (38-126); ANION GAP 10 (5-19); ASPARTATE AMINO TRANSFERASE 50 U/L (14-36); BILIRUBIN,DIRECT 0.2 mg/dL (0.0-0.4); BILIRUBIN,TOTAL 0.5 mg/dL (0.2-1.3); BLOOD UREA NITROGEN 9 mg/dL (7-20); CALCIUM 9.5 mg/dL (8.4-10.2); CARBON DIOXIDE 25 mmol/L (22-30); CHLORIDE 102 mmol/L (98-107); GLUCOSE 85 mg/dL (75-110); POTASSIUM 4.5 mmol/L (3.6-5.0); SODIUM 137.2 mmol/L (137-145); TOTAL PROTEIN 6.4 g/dL (6.3-8.2)
[2018-11-02] MEDS: FOLIC ACID 1 MG TABLET PO SCH (09:04)
[2018-11-02] MEDS: FAMOTIDINE 20 MG TABLET PO SCH (09:04)
[2018-11-02] MEDS: VENLAFAXINE HCL 37.5 MG CAP.SR.24H PO SCH (09:04)
[2018-11-02] MEDS: THIAMINE HCL 100 MG TABLET PO SCH (09:04)
[2018-11-02] MEDS: BUSPIRONE HCL 10 MG TABLET PO SCH (09:04)
--- NOTE | 2018-11-02 12:23 | PDOC DISCHARGE SUMMARY ---
General - Admit/Disc Date/PCP Admission Date/Primary Care Provider: 10/28/18 10:15 SYLVIA PAK MD Discharge Date: 11/02/18 - Discharge Diagnosis (1) Alcohol abuse Is this a current diagnosis for this admission?: Yes Summary: Ms. Antony is a 27-year-old female who was admitted on 10/28/2018 with acute ingestion of rubbing alcohol with complaints of alcoholic pancreatitis nausea vomiting and generalized body aches. She initially had Balis and vomiting nonbloody in origin and epigastric abdominal pain that had progressive worsening last week prior to admission. She was admitted treated with anti-anxiolytics for her alcohol withdrawal as well as Toradol, Percocet and morphine for her pancreatic body aches. At this time patient is improved sufficiently return home I will prescribe tramadol 50 mg 1 p.o. every 8 hours as needed #15 until patient can be seen by primary care provider. (2) Nausea & vomiting Is this a current diagnosis for this admission?: Yes Summary: Nausea and vomiting mostly resolved at this time. Will send patient home with Zofran 4 mill grams p.o. every 8 hours as needed #15 until patient be seen by her primary care provider. (3) Hypokalemia Is this a current diagnosis for this admission?: Yes Summary: Resolved. This is most likely due to GI losses with nausea and vomiting. Will have patient follow-up with primary care provider for repeat potassium within 1 month. (4) UTI (urinary tract infection) Is this a current diagnosis for this admission?: Yes Summary: Subsequently has resolved we will have patient return to primary care provider for any further complaints. - Additional Information Discharge Diet: As Tolerated Discharge Activity: Activity As Tolerated Prescriptions: Buspirone HCl [Buspar 10 mg Tablet] 10 mg PO Q12 #60 tablet Ondansetron [Zofran Odt 4 mg Tablet] 4 mg PO Q4HP PRN #15 tab.rapdis PRN Reason: For Nausea/Vomiting Tramadol HCl [Ultram 50 mg Tablet] 50 mg PO Q6HP PRN #15 tablet PRN Reason: body aches Venlafaxine HCl ER [Effexor Xr 37.5 mg Cap.sr] 37.5 mg PO Q12 #60 cap.sr.24h Home Medications: Citalopram Hydrobromide [Celexa 10 mg Tablet] 30 mg PO QHS 10/29/18 Diazepam [Valium 2 mg Tablet] 2 mg PO Q6HP PRN 10/29/18 Famotidine [Pepcid 20 mg Tablet] 20 mg PO DAILY 10/29/18 Oxycodone HCl/Acetaminophen [Percocet 5-325 mg Tablet] 1 tab PO Q4HP PRN 10/29/18 Thiamine Mononitrate [Vitamin B-1] 100 mg PO DAILY 10/29/18 Buspirone HCl [Buspar 10 mg Tablet] 10 mg PO Q12 #60 tablet 11/02/18 Ondansetron [Zofran Odt 4 mg Tablet] 4 mg PO Q4HP PRN #15 tab.rapdis 11/02/18 Tramadol HCl [Ultram 50 mg Tablet] 50 mg PO Q6HP PRN #15 tablet 11/02/18 Venlafaxine HCl ER [Effexor Xr 37.5 mg Cap.sr] 37.5 mg PO Q12 #60 cap.sr.24h 11/02/18 History of Present Illness Patient complains of: Generalized body aches. History of Present Illness: DAVONTE ANTONY is a 27 year old female who was admitted on 10/28/2018 with ing estion of rubbing alcohol as she was unable to afford drinking alcohol. Patient was found to have nausea vomiting, hypokalemia and UTI. Patient was admitted to the medical surgical floor was hydrated with IV fluids. Patient also was given IV antiemetics and pain control was achieved with IV Toradol morphine and Percocet. Patient is progressively improved throughout her hospital stay and at this time is a professional return home with oral medications. At this time will send patient home with tramadol 50 mg 1 p.o. every 8 hours as needed #15 for pain control as well as Zofran 4 mg p.o. every 8 hours as needed for nausea and vomiting. I will also continue patient on her home behavioral health medications at this time Physical Exam Vital Signs: Temp Pulse Resp BP Pulse Ox 97.5 F 84 14 114/75 98 11/02/18 04:01 11/02/18 07:19 11/02/18 07:19 11/02/18 07:19 11/02/18 07:19 Intake & Output 11/01/18 11/02/18 11/03/18 06:59 06:59 06:59 Intake Total 948 1175 Balance 948 1175 Weight 73.9 kg 73.5 kg General appearance: PRESENT: no acute distress, well-developed, well-nourished Head exam: PRESENT: atraumatic, normocephalic Eye exam: PRESENT: conjunctiva pink, EOMI, PERRLA. ABSENT: scleral icterus Mouth exam: PRESENT: moist, tongue midline Neck exam: ABSENT: carotid bruit, JVD, lymphadenopathy, thyromegaly Respiratory exam: PRESENT: clear to auscultation vane. ABSENT: rales, rhonchi, wheezes Cardiovascular exam: PRESENT: RRR. ABSENT: diastolic murmur, rubs, systolic murmur Pulses: PRESENT: normal dorsalis pedis pul Vascular exam: PRESENT: normal capillary refill GI/Abdominal exam: PRESENT: normal bowel sounds, soft. ABSENT: distended, guarding, mass, organolmegaly, rebound, tenderness Extremities exam: PRESENT: full ROM. ABSENT: calf tenderness, clubbing, pedal edema Neurological exam: PRESENT: alert, awake, oriented to person, oriented to place, oriented to time, oriented to situation, CN II-XII grossly intact. ABSENT: motor sensory deficit Psychiatric exam: PRESENT: appropriate affect, normal mood. ABSENT: homicidal ideation, suicidal ideation Results Laboratory Results: 11/02/18 05:00 11/02/18 05:00 11/02/18 11/02/18 05:00 05:00 WBC 5.5 RBC 4.14 Hgb 12.5 Hct 36.9 MCV 89 MCH 30.3 MCHC 33.9 RDW 14.4 H Plt Count 240 Seg Neutrophils % 46.6 Lymphocytes % 35.6 Monocytes % 8.3 Eosinophils % 9.1 H Basophils % 0.4 Absolute Neutrophils 2.5 Absolute Lymphocytes 1.9 Absolute Monocytes 0.5 Absolute Eosinophils 0.5 Absolute Basophils 0.0 Sodium 137.2 Potassium 4.5 Chloride 102 Carbon Dioxide 25 Anion Gap 10 BUN 9 Creatinine 0.60 Est GFR ( Amer) > 60 Est GFR (Non-Af Amer) > 60 Glucose 85 Calcium 9.5 Magnesium 2.0 Total Bilirubin 0.5 AST 50 H ALT 48 Alkaline Phosphatase 56 Total Protein 6.4 Albumin 4.1 Impressions: Abdomen/Pelvis CT 10/28/18 06:12 IMPRESSION: No acute findings. Fatty liver. Chronic pancreatitis with decrease in size of the pseudocyst near the pancreatic tail. No peripancreatic inflammatory changes to suggest acute pancreatitis. TECHNICAL DOCUMENTATION: Quality ID # [id number]: Final reports with documentation of one or more dose reduction techniques (e.g., Automated exposure control, adjustment of the mA and/or kV according to patient size, use of iterative reconstruction technique) copyright 2011 [employer]- All Rights Reserved Qualifiers - * PATIENT BEING DISCHARGED WITH ANY OF THE FOLLOWING DIAGNOSIS: No Acute Heart Failure - Is this a Heart Failure Patient?: No Plan Discharge Plan: Discharge to home at this time follow-up care within 1 week with primary care practitioner. Time Spent: Greater than 30 Minutes
[2018-11-02 12:36] VITALS: BP 138/93
[2018-11-02] MEDS ORDERED: DIAZEPAM 5 MG TABLET PO ONE (13:00)
== END 2018-11-02 14:15 | disposition home or self-care (01) | DRG 897 ==
LOC: ER 03:11 → EH 08:36 → OBSVTOIN 10:15 → 3N 10:27
PROVIDERS: ADMIT Internal Medicine; ATTEND Internal Medicine
DX: F10.230 Alcohol dependence with withdrawal, uncomplicated (principal); K86.0 Alcohol-induced chronic pancreatitis; N30.00 Acute cystitis without hematuria; F10.229 Alcohol dependence with intoxication, unspecified; R11.2 Nausea with vomiting, unspecified; E87.6 Hypokalemia; F90.9 Attention-deficit hyperactivity disorder, unspecified type; F32.9 Major depressive disorder, single episode, unspecified; F12.90 Cannabis use, unspecified, uncomplicated; B96.20 Unspecified Escherichia coli [E. coli] as the cause of diseases classified elsewhere; E66.9 Obesity, unspecified; Z68.34 Body mass index [BMI] 34.0-34.9, adult; Z81.1 Family history of alcohol abuse and dependence; Z81.8 Family history of other mental and behavioral disorders
CPT/HCPCS: 36415; 74177; 80048; 80053; 80307; 81001; 83690; 83735; 83930; 84132; 84703; 85025; 93005; 93010; 96365; 96366; 96372; 96375; 96376; 99284; J0696; J1170; J1644; J1885; J2060; J2405; J2550; J3360; J3411; J3475; J3480; J3490; J7030; J7042; J7060; J7120; S0164